=== PATIENT | male | born 1990 | race Caucasian/White ===

== ENCOUNTER 2020-07-23 14:09 | Observation (INO) | payer OTHER, SELFPAY ==
[2020-07-23] VITALS (13 sets, daily range): BP systolic 112–142; BP diastolic 65–104; PULSE 101–137; RESP 12–20; TEMP 36.1–36.3; O2SAT 94–99; BMI 25.2
--- NOTE | ~2020-07-23 | CT_ITS ---
EXAMINATION: CT abdomen pelvis w con DATE: 07/23/2020 16:03 INDICATION: Nausea and vomiting. Hematemesis. TECHNIQUE: Computed tomography (CT) of the abdomen and pelvis was performed with 100 cc Omnipaque 350 intravenous contrast. Automated exposure control and iterative reconstruction technique were employe d. Exam dose: 410.92 mGy-cm total exam DLP. COMPARISON: None. FINDINGS: The lung bases are clear of infiltrate or consolidation. Fat-containing right foramen of [place]chdalek hernia. Normal heart size. No pericardial or pleural effusion. Small sliding hiatal hernia. Small fat-containing umbilical hernia. Diffuse hepatic steatosis. No hepatic space-occupying mass lesion is evident. The gallbladder is pres ent. No gallbladder wall thickening or pericholecystic fluid or fat stranding. No bile duct or pancre atic duct dilatation. Normal splenic size. No pancreatic mass lesion, calcification or ductal dilatation. Normal morphology of the adrenal glands. Approximately 2.6 mm nonobstructing right renal calculus. 2.1 cm right renal cyst. 3 mm lower pole left renal cyst. No urinary tract calculus or hydroureteronephrosis. The urinary bladder is unremarkable. Minimal pros laboy calcification. Normal caliber of the abdominal aorta. No intraperitoneal or retroperitoneal or pelvic mass lesion or adenopathy or ascites. Normal appendix. No bowel obstruction, bowel wall thickening, pneumatosis or intraperitoneal free air . Old healed left rib fractures. IMPRESSION: Small sliding hiatal hernia Diffuse hepatic steatosis 2.6 mm nonobstructing right renal calculus Bilateral renal cysts Reviewed, dictated and finalized at [facility] Reviewed, dictated and finalized at [facility] AMBASS[facility]OR
[2020-07-23] MEDS: PANTOPRAZOLE SODIUM IV 40 MG VIAL IV PUSH (14:45)
[2020-07-23] MEDS: ONDANSETRON INJ 4 MG/2 ML VIAL IV PUSH (14:45)
--- NOTE | 2020-07-23 14:47 | ECG_ITS ---
Measurements Intervals [place] Rate: 125 P: 48 W[place]: 138 QRS: 37 QRSD: 110 T: 12 QT: 341 QTc: 492 Interpretive Statements SINUS TACHYCARDIA BORDERLINE ST-T WAVE ABNORMALITY- INF/LAT LEADS BASELINE WANDER- I, II, III, AVF ABNORMAL ECG Electronically Signed On 07-23-2020 17:04:59 APPLIANCE MECHANIC by Maik Prieto D.O.
--- NOTE | 2020-07-23 15:01 | ED.GENADULT ---
HPI - General Adult General Chief complaint: GI Bleed <EARLENE Thompson Last Filed: 07/23/20 18:08> Stated complaint: vomiting blood <EARLENE Thompson Last Filed: 07/23/20 18:08> Time Seen by Provider: 07/23/20 14:21 <EARLENE Thompson Last Filed: 07/23/20 18:08> Source: patient <EARLENE Thompson Last Filed: 07/23/20 18:08> Mode of arrival: ambulatory <EARLENE Thompson Last Filed: 07/23/20 18:08> Limitations: no limitations <EARLENE Thompson Last Filed: 07/23/20 18:08> History of Present Illness HPI narrative: Patient is a 30-year-old male who presents with hematemesis that began this morning patient notes history of chronic alcohol abuse denies any similar occurrence in the past patient notes chronic alcohol abuse drinking half a pint per day vodka chronically. Patient notes last night he had drank woke up feeling hung over this morning made an alcoholic drink and then attempted to go back to bed and then woke with emesis and vomiting. Patient also noted dark stools this morning. Patient denies GI bleed in the past. Patient notes history of possible reflux historically. Patient has not been seen by gastroenterology. Patient denies any other medications or illness or concerns at this time. Patient presents with emesis active in the ER with hematemesis. Patient has not taken anything for his symptoms patient is accompanied by exam <EARLENE Thompson Last Filed: 07/23/20 18:08> Related Data Home medications: Home Medications Medication Instructions Recorded Confirmed No Home Medications 07/23/20 07/23/20 <EARLENE Thompson Last Filed: 07/23/20 18:08> Allergies/adverse reactions: Allergies Allergy/AdvReac Type Severity Reaction Status Date / Time No Known Allergies Allergy Verified 07/23/20 14:21 <EARLENE Thompson Last Filed: 07/23/20 18:08> Review of Systems Review of Systems: All systems reviewed & are unremarkable except as noted in HPI and below <EARLENE Thompson Last Filed: 07/23/20 18:08> PMFSH Social History Social History: Social History (Updated 07/23/20 @ 15:05 by Catarino Ortiz PA-C) Smoking status: Never smoker Alcohol intake: current <Catarino Ortiz PA-C - Last Filed: 07/23/20 18:08> Exam Narrative: Exam Narrative: GENERAL: Ill-appearing, well-nourished, and in no acute distress. HEAD: Normocephalic, atraumatic. EYES: PERRLA and EOMI. ENT: Nares clear, no rhinorrhea or epistaxis. Mucous membranes moist. NECK: Supple. No adenopathy or masses. CHEST: Clear to auscultation. No respiratory distress. No wheezes rales or rhonchi HEART: Tachycardic rate and regular rhythm. No murmur heard. Normal peripheral pulses. ABDOMEN: Soft, tenderness in the upper quadrants no rebound or guarding, nondistended EXTREMITIES: Normal range of motion. No edema. SKIN: Warm, dry, no rash. NEURO: No focal deficits. Alert and oriented x3. Cranial nerves II through XII grossly intact PSYCH: Normal mood and affect. <Catarino Ortiz PA-C - Last Filed: 07/23/20 18:08> Course Course Emergency Course: Patient presented for hematemesis was given octreotide bolus and Protonix bolus and started on the drip no high risk changes in the blood work or imaging patient feeling much better at this time no longer having any emesis patient will be placed in hospital to the hospitalist service with GI consultation discussion was made with GI and hospitalist service with no further recommendations at this time given the patient's improvement <Catarino Ortiz PA-C - Last Filed: 07/23/20 18:08> ABORIGINAL LIAISON OFFICER/PA Physician Supervision For this patient encounter, I reviewed the ABORIGINAL LIAISON OFFICER or PA documentation, treatment plan, and medical decision making; and I had [id number] time with this patient. PAtient has alcohol abuse and presented with hematemesis. His hemoglobin had mild decreased
[2020-07-23 15:02] LABS: Basophils Percent Auto 0.6 % (0.2-1.2); Eosinophils Absolute Auto 0.1 K/mm3 (0-0.3); Eosinophils Percent Auto 2.1 % (0-4.4); Hematocrit 46.1 % (42.0-52.0); Immature Granulocyte Absolute 0.01 K/mm3 (0.00-0.031); Immature Granulocyte Percent A 0.1 % (0-0.5); Lymphocytes Absolute Auto 2.12 K/mm3 (0.9-3.2); Lymphocytes Percent Auto 31.7 % (18.3-44.2); Mean Corpuscular HGB Conc 34.7 g/dl (32-36); Mean Corpuscular Hemoglobin 32.3 pg (26-34); Mean Corpuscular Volume 92.9 fl (80-100); Mean Platelet Volume 9.7 fl (7.4-10.4); Monocytes Absolute Auto 0.6 K/mm3 (0.1-0.6); Monocytes Percent Auto 8.4 % (2.6-8.5); Neutrophils Absolute Auto 3.8 K/mm3 (1.3-6.7); Neutrophils Percent Auto 57.1 % (45.5-73.1); Platelet Count Result 332 k/mm3 (150-375); Red Blood Count 4.96 M/mm3 (4.6-6.20); Red Cell Distribution Width 13.5 % (11.5-14.5); White Blood Count 6.7 K/mm3 (4.5-10.0)
[2020-07-23 15:04] LABS: Add Urine Microscopic? YES; Appearance Urine Clear (Clear); Bilirubin Urine Negative (Negative); Blood Urine Negative (Negative); Color Urine Yellow (Yellow); Glucose Urine UA Negative (Negative); Ketones Urine 1+ mg/dL (Negative); Leukocyte Esterase Ur Negative LEU/UL (Negative); Mucus Urine Rare /lpf; Nitrate Urine Negative (Negative); Protein Urine 2+ mg/dL (Negative); RBC Urine 0-2 /hpf (0-2); Specific Grav Ur 1.016 (1.001-1.035); Urobilinogen Urine Negative mg/dL (<2.0); WBC Urine 0-3 /hpf
[2020-07-23 15:15] LABS: Ethanol 282 mg/dL (<10)
[2020-07-23] MEDS: THIAMINE HCL INJ 100 MG, FOLIC ACID INJ 1 MG, MULTIVITAMINS-12 INJ VIAL 1 5 ML, MULTIVI... 999 MG IV CONT (15:23)
[2020-07-23] MEDS: OCTREOTIDE ACETATE 50 MCG/ML VIAL IV PUSH (15:24)
[2020-07-23 15:34] LABS: Alanine Aminotransferase 119 U/L (4-50); Albumin Level 5.1 g/dL (3.5-5.1); Alkaline Phosphatase 46 U/L (38-126); Anion Gap 16 mmol/L (8-16); Aspartate Amino Transferase 141 U/L (17-59); Bilirubin,Total 0.6 mg/dL (0.2-1.3); Blood Urea Nitrogen 20 mg/dL (9-20); Calcium 9.1 mg/dL (8.4-10.2); Carbon Dioxide 27 mmol/L (22-30); Chloride 101 mmol/L (98-107); Estimated CRCL calculation 121 ml/min; Estimated Glomerular Filt Rate > 60; Glucose 120 mg/dL (75-110); Lipase 142 U/L (23-300); Potassium 3.7 mmol/L (3.4-5.0); Sodium 144 mmol/L (137-145)
[2020-07-23] MEDS: FAMOTIDINE 20 MG/2 ML VIAL IV PUSH (15:37)
[2020-07-23] MEDS: METOCLOPRAMIDE HCL INJ 10 MG/2 ML VIAL IV PUSH (15:37)
[2020-07-23] MEDS: LACTATED RINGERS 1,000 ML 999 ML IV CONT (15:37)
[2020-07-23 18:31] LABS: Hematocrit 40.9 % (42.0-52.0); Hemoglobin 14.1 g/dL (14.0-18.0)
[2020-07-23] MEDS: LACTATED RINGERS 1,000 ML 125 ML IV CONT (20:56)
[2020-07-23 21:03] LABS: Hematocrit 39.3 % (42.0-52.0); Hemoglobin 13.4 g/dL (14.0-18.0)
[2020-07-23] MEDS: LORazepam INJ (*CRX) 2 MG/ML VIAL 1 MG IV PUSH (21:54)
--- NOTE | 2020-07-23 22:58 | PM.IMHP ---
H&P: HPI History of Present Illness Date/Time: 07/23/20 22:58 Chief Complaint: Hematemesis Narrative: Jaiden Urena is a 30 year old male who drinks more than a pt of vodka a day. Patient has been drinking heavily since the COVID pandemic. The patient woke up around 4:00 a.m. this morning and had a stomach ache. The patient said that he had a large amount hematemesis this morning. He also had dark stools. He said he had several bouts of hematemesis this morning. Initially his H&H was normal. The patient has never seen a GI specialist. H&H is on 13.4 in 39.3. AST is 141 and ALT is 119. CT scan of the abdomen Was read as small see any hiatal hernia bilateral renal cyst. 2.6 mm nonobstructing right renal calculus. Diffuse hepatic steatosis. GI has been consulted. IV push, Zofran, IV Tylenol, thiamin, octreotide, Reglan, Pepcid and IV fluids. Patient was meant to observation date of service of 07/23/2020. Review of Systems Review of Systems: All systems reviewed & are unremarkable except as noted in HPI and below Constitutional: Constitutional: Reports as per HPI and Reports no additional constitutional complaints Eyes: Eyes: Reports as per HPI and Reports no additional eye complaints ENT: Reports system reviewed and no additional complaints, except as documented and Reports Normal hearing present Cardiovascular: Cardiovascular: Reports no additional cardiovascular complaints Respiratory: Respiratory: Reports no additional respiratory complaints and Reports no additional respiratory complaints Gastrointestinal: Gastrointestinal: Reports as per HPI and Reports no additional gastrointestinal complaints Musculoskeletal: Musculoskeletal: Reports no additional musculoskeletal complaints Integumentary/Breasts: Skin/Breast: Reports system reviewed and no additional complaints, except as docu and Reports as per HPI Neurologic: Reports system reviewed and no additional complaints, except as documented, Reports as per HPI and Reports Normal hearing present Psychiatric: Psychiatric: Reports no additional psychiatric complaints and Reports as per HPI Endocrine: Endocrine: Reports no additional endocrine complaints Hematologic/Lymphatic: Hematologic/Lymphatic: Reports no additional hematologic/lymphatic complaints Allergic/Immunologic: Allergic/Immunologic: Reports no additional allergic/immunologic complaints [facility] Past Medical History Medical History (Updated 07/23/20 @ 23:17 by Marizol Henry NP) Depression Generalized anxiety disorder History of suicide attempt 2 times as a teenager he cut his wrist 1 time and overdose on pills a 2nd time Surgical History Surgical History (Updated 07/23/20 @ 23:11 by Marizol Henry NP) No pertinent past surgical history Family History Family History (Updated 07/23/20 @ 23:13 by Marizol Henry NP) Father Diabetes mellitus Grandparent Diabetes mellitus Cerebrovascular accident Mother Alcoholism Social History Social History (Updated 07/23/20 @ 23:16 by Marizol Henry NP) Social History: The patient lives with his significant other he does not have a durable power of environmental attorney but we had to use his aunt to be the durable power environmental attorney if necessary. He is a full code. The patient drinks more than a pt of vodka a day. He used to use marijuana gummies but is not able to use a where he works. He works for [employer]. The patient has no children but lives with his significant other and she has an 8-year-old. Patient is a non smoker. Smoking status: Never smoker Second hand tobacco smoke exposure: Yes Alcohol intake: current Drinks per week: 35 Substance use: never Substance use type: does not use Other substance usage details: 3 drinks a day work day, all day on weekend-vodka and water Last use: 4am Spiritual care concerns: No Meds Home Medications and Allergies Home Medications Medication Instructions
[2020-07-23] MEDS: LORazepam INJ (*CRX) 2 MG/ML VIAL IV PUSH (23:10)
[2020-07-24] VITALS (14 sets, daily range): BP systolic 114–157; BP diastolic 70–99; PULSE 81–125; RESP 16–22; TEMP 36–36.3; O2SAT 97–100
--- NOTE | 2020-07-24 00:50 | ADMIMU ---
This patient, Jaiden Urena, was admitted to IMU status, and placed in IMU Room 200-01 07/23/202234. Patient/family oriented to hospital policies and general routines including ID bracelet, bed and alarms, visiting hours, pain management, procedures, bathroom and other care routines, personal items, smoking policy, room service/diet, and visiting hours. Information on how to activate the Rapid Response Team has been discussed. Patient/Family are encouraged to report perceived risks to care and to ask questions if they do not understand what they are told or what they should do.
[2020-07-24 03:39] LABS: Basophils Percent Auto 0.6 % (0.2-1.2); Eosinophils Absolute Auto 0.1 K/mm3 (0-0.3); Hematocrit 37.5 % (42.0-52.0); Hemoglobin 12.8 g/dL (14.0-18.0); Immature Granulocyte Absolute 0.02 K/mm3 (0.00-0.031); Immature Granulocyte Percent A 0.3 % (0-0.5); Lymphocytes Absolute Auto 1.14 K/mm3 (0.9-3.2); Lymphocytes Percent Auto 16.1 % (18.3-44.2); Mean Corpuscular HGB Conc 34.1 g/dl (32-36); Mean Corpuscular Hemoglobin 32.2 pg (26-34); Mean Corpuscular Volume 94.2 fl (80-100); Mean Platelet Volume 9.9 fl (7.4-10.4); Monocytes Absolute Auto 0.8 K/mm3 (0.1-0.6); Monocytes Percent Auto 10.8 % (2.6-8.5); Neutrophils Percent Auto 71.2 % (45.5-73.1); Platelet Count Result 262 k/mm3 (150-375); Red Blood Count 3.98 M/mm3 (4.6-6.20); Red Cell Distribution Width 13.6 % (11.5-14.5); White Blood Count 7.1 K/mm3 (4.5-10.0)
[2020-07-24 04:09] LABS: Alanine Aminotransferase 89 U/L (4-50); Albumin Level 4.1 g/dL (3.5-5.1); Alkaline Phosphatase 40 U/L (38-126); Anion Gap 5 mmol/L (8-16); Aspartate Amino Transferase 94 U/L (17-59); Blood Urea Nitrogen 13 mg/dL (9-20); Calcium 8.3 mg/dL (8.4-10.2); Carbon Dioxide 32 mmol/L (22-30); Chloride 101 mmol/L (98-107); Estimated CRCL calculation 121 ml/min; Estimated Glomerular Filt Rate > 60; Glucose 144 mg/dL (75-110); Lactate Dehydrogenase 472 U/L (313-618); Lipase 77 U/L (23-300); Magnesium 1.6 mg/dL (1.6-2.3); Sodium 138 mmol/L (137-145)
[2020-07-24] MEDS: LACTATED RINGERS 1,000 ML 125 ML IV CONT (04:57)
[2020-07-24 05:31] LABS: Thyroid Stimulating Hormone Reflex 0.353 uIU/mL (0.465-4.68)
--- NOTE | 2020-07-24 07:28 | WPDANESEPPF ---
Anes - Initial Pre Proc Eval Date/Time: 07/24/20 07:28 Surgeon: Lindsey Maciel MD Pre Op Diagnosis: GI bleed, etoh abuse Patient Data Age: 30 Gender: M Height: 1.78 m Weight: 80 kg Last Vital Signs Temp 36.3 C L 07/24/20 04:00 Pulse 92 07/24/20 05:53 Resp 16 07/24/20 04:00 BP 138/87 07/24/20 04:00 Pulse Ox 97 07/24/20 04:00 Allergies Allergy/AdvReac Type Severity Reaction Status Date / Time No Known Allergies Allergy Verified 07/23/20 14:21 Home Medications Medication Instructions Recorded Confirmed Type No Home Medications 07/23/20 07/23/20 History Laboratory Tests 07/23/20 07/23/20 07/23/20 14:46 14:46 14:46 WBC 6.7 K/mm3 K/mm3 (4.5-10.0) RBC 4.96 M/mm3 M/mm3 (4.6-6.20) Hgb 16.0 g/dL g/dL (14.0-18.0) Hct 46.1 % % (42.0-52.0) MCV 92.9 fl fl (80-100) MCH 32.3 pg pg (26-34) MCHC 34.7 g/dl g/dl (32-36) RDW 13.5 % % (11.5-14.5) Plt Count 332 k/mm3 k/mm3 (150-375) MPV 9.7 fl fl (7.4-10.4) Immature Gran % (Auto) 0.1 % % (0-0.5) Neut % (Auto) 57.1 % % (45.5-73.1) Lymph % (Auto) 31.7 % % (18.3-44.2) [place] % (Auto) 8.4 % % (2.6-8.5) Eos % (Auto) 2.1 % % (0-4.4) Baso % (Auto) 0.6 % % (0.2-1.2) Lymph # (Auto) 2.12 K/mm3 K/mm3 (0.9-3.2) [place] # (Auto) 0.6 K/mm3 K/mm3 (0.1-0.6) Eos # (Auto) 0.1 K/mm3 K/mm3 (0-0.3) Baso # (Auto) 0.0 K/mm3 K/mm3 (0.0-0.1) Abs Immat Gran (auto) 0.01 K/mm3 K/mm3 (0.00-0.031) Absolute Neuts (auto) 3.8 K/mm3 K/mm3 (1.3-6.7) Absolute Nucleated RBC 0.0 K/mm3 K/mm3 (0.0-0.012) Nucleated RBC % 0.0 % % (0.0-0.2) Sodium 144 mmol/L mmol/L (137-145) Potassium 3.7 mmol/L mmol/L (3.4-5.0) Chloride 101 mmol/L mmol/L (98-107) Carbon Dioxide 27 mmol/L mmol/L (22-30) Anion Gap 16 mmol/L mmol/L (8-16) BUN 20 mg/dL mg/dL (9-20) Creatinine 0.80 mg/dL mg/dL (0.7-1.3) Estim Creat Clear Calc 121 ml/min ml/min Estimated GFR > 60 (59 - ) Glucose 120 mg/dL H mg/dL (75-110) Calcium 9.1 mg/dL mg/dL (8.4-10.2) Magnesium Total Bilirubin 0.6 mg/dL mg/dL (0.2-1.3) AST 141 U/L H U/L (17-59) ALT 119 U/L H U/L (4-50) Alkaline Phosphatase 46 U/L U/L (38-126) Lactate Dehydrogenase Total Protein 9.0 g/dL H g/dL (6.3-8.2) Albumin 5.1 g/dL g/dL (3.5-5.1) Lipase 142 U/L U/L (23-300) TSH (Reflex) Free T4 Urine Color Yellow (Yellow) Urine Appearance Clear (Clear) Urine pH 6.0 (5.0-9.0) Ur Specific [place] 1.016 (1.001-1.035) Urine Protein 2+ mg/dL H mg/dL (Negative) Urine Glucose (UA) Negative mg/dL mg/dL (Negative) Urine Ketones 1+ mg/dL H mg/dL (Negative) Ur Blood (Man) Negative (Negative) Urine Nitrate Negative (Negative) Urine Bilirubin Negative (Negative) Urine Urobilinogen Negative mg/dL mg/dL (<2.0) Leukocyte Esterase Rfl Negative RON/UL RON/UL (Negative) Urine RBC 0-2 /hpf /hpf (0-2) Urine WBC 0-3 /hpf /hpf Urine Mucus Rare /lpf /lpf Ethyl Alcohol Blood Type Antibody Screen 07/23/20 07/23/20 07/23/20 14:46 14:47 18:24 WBC RBC Hgb 14.1 g/dL g/dL (14.0-18.0) Hct 40.9 % L % (42.0-52.0) MCV MCH MCHC RDW Plt Count MPV Immature Gran % (Auto) Neut % (Auto) Lymph % (Auto) [place] %
[2020-07-24 08:53] LABS: Hematocrit 35.9 % (42.0-52.0); Hemoglobin 12.2 g/dL (14.0-18.0)
--- NOTE | 2020-07-24 08:57 | WPDGICN ---
Assessment and Plan Assessment and plan (1) Hematemesis: Code(s): K92.0 - Hematemesis Status: Acute Assessment and Plan: will proceed with urgent EGD, assess if ulcers, esophagitis, varices, etc on iv protonix and octreotide (2) Acute blood loss anemia: Code(s): D62 - Acute posthemorrhagic anemia Status: Acute Assessment and Plan: trend h/h and more signs of bleeding iv protonix (3) Alcoholic liver disease: Code(s): K70.9 - Alcoholic liver disease, unspecified Status: Acute Assessment and Plan: he needs to quit drinking supportive care, thiamine, mvi ciwa protocol (4) Elevated liver enzymes: Code(s): R74.8 - Abnormal levels of other serum enzymes Status: Acute Assessment and Plan: from alcohol use, denies illicits will check for hepatitis (5) Alcohol abuse: Code(s): F10.10 - Alcohol abuse, uncomplicated Status: Acute Assessment and Plan: risk for withdrawal, monitor and treat (6) Generalized anxiety disorder: Code(s): F41.1 - Generalized anxiety disorder Status: Chronic GI Consult Note Consult date/time: 07/24/20 08:57 Reason for consult: gib, hematemesis HPI: Jaiden Urena is a 30 year old male who drinks more than a pint of vodka a day for years but even more than usual since the COVID pandemic. Last few days with nausea and dry heaves but yesterday woke up in morning with also epigastric pain and had large amount hematemesis with dark stools. Hb on admission was 16 and trending down with most recent one 12.2. He was started on protonix, octreotide, fluids and admitted to floor. Never had scopes. AST 141 and ALT 119 (he says that about a year ago his doctor told him that had mild elevated liver enzymes). CT scan of the abdomen reviewed, small hiatal hernia, diffuse hepatic steatosis. Review of Systems Constitutional: Constitutional: Denies chills Eyes: Eyes: Reports no additional eye complaints ENT: Reports Normal hearing present Cardiovascular: Cardiovascular: Denies chest pain Respiratory: Respiratory: Denies dyspnea Gastrointestinal: Gastrointestinal: Reports abdominal pain, Reports melena, Reports nausea, Reports vomiting and Reports hematemesis Genitourinary: Genitourinary: Denies dysuria Musculoskeletal: Musculoskeletal: Denies neck pain Integumentary/Breasts: Skin/Breast: Denies dry skin Neurologic: Reports system reviewed and no additional complaints, except as documented Psychiatric: Psychiatric: Reports anxiety Endocrine: Endocrine: Denies cold intolerance PMFSH Past Medical History Medical History (Updated 07/24/20 @ 09:02 by Lake Bauer MD) Acute blood loss anemia Alcohol abuse Alcoholic liver disease Depression Elevated liver enzymes Generalized anxiety disorder Hematemesis History of suicide attempt 2 times as a teenager he cut his wrist 1 time and overdose on pills a 2nd time Surgical History Surgical History (Updated 07/23/20 @ 23:11 by Marizol Henry NP) No pertinent past surgical history Family History Family History (Updated 07/23/20 @ 23:13 by Marizol Henry NP) Father Diabetes mellitus Grandparent Diabetes mellitus Cerebrovascular accident Mother Alcoholism Social History Social History (Updated 07/23/20 @ 23:16 by Marizol Henry NP) Social History: The patient lives with his significant other he does not have a durable power of [place] attorney but we had to use his aunt to be the durable power [place] attorney if necessary. He is a full code. The patient drinks more than a pt of vodka a day. He used to use marijuana gummies but is not able to use a where he works. He works for [employer]. The patient has no children but lives with his significant other and she has an 8-year-old. Patient is a non smoker. Smoking status: Never smoker Second hand tobacco smoke exposure: Yes Alcohol intake: cur
[2020-07-24] MEDS: LACTATED RINGERS 1,000 ML 150 ML IV CONT (09:08)
[2020-07-24] MEDS: FOLIC ACID 1 MG/0.2 ML INJ IV PUSH (10:41)
[2020-07-24] MEDS: THIAMINE HCL 200 MG/2 ML VIAL 100 MG IV PUSH (10:41)
[2020-07-24] MEDS: SUCRALFATE 1 GM TABLET PO (10:41)
--- NOTE | 2020-07-24 10:42 | PM.DS ---
DS: Admitting Diagnosis Admitting Diagnosis Admitting Diagnosis: hematemesis DS: Discharge Diagnosis Discharge Diagnosis (1) Elevated liver enzymes: Code(s): R74.8 - Abnormal levels of other serum enzymes Status: Acute Assessment and Plan: secondary to alcohol abuse counseling (2) Alcoholic liver disease: Code(s): K70.9 - Alcoholic liver disease, unspecified Status: Acute Assessment and Plan: avoid alcohol counseling (3) Acute blood loss anemia: Code(s): D62 - Acute posthemorrhagic anemia Status: Acute Assessment and Plan: acute blood loss anemia secondary to GI bleed secondary to esophagitis gastritis and esophageal ulcer status post endoscopy and biopsy follow-up with GI as outpatient plan to discharge patient on Protonix and Carafate follow-up with GI in 2 weeks (4) Alcohol abuse: Code(s): F10.10 - Alcohol abuse, uncomplicated Status: Acute Assessment and Plan: counseling DS: Summary Hospital Course Hospital Course: patient was admitted to the hospital with dry heaves hematemesis was found to esophagitis gastritis esophageal ulcer on endoscopy GI following biopsy was taken follow-up with GI as outpatient patient also has history of chronic alcoholism counseling was given follow-up with PCP Time Spent with Patient Time attestation: Total time spent providing and/or coordinating discharge services: DS: Data Data Completed and Pending Pending studies at discharge: Pending at discharge 07/24/20 09:19 Surgical [PTH] Routine Labs on day of discharge: Labs from last 24 hours 07/24/20 07/24/20 07/24/20 08:33 03:08 03:08 WBC RBC Hgb 12.2 L Hct 35.9 L MCV MCH MCHC RDW Plt Count MPV Immature Gran % (Auto) Neut % (Auto) Lymph % (Auto) [place] % (Auto) Eos % (Auto) Baso % (Auto) Lymph # (Auto) [place] # (Auto) Eos # (Auto) Baso # (Auto) Abs Immat Gran (auto) Absolute Neuts (auto) Absolute Nucleated RBC Nucleated RBC % Sodium Potassium Chloride Carbon Dioxide Anion Gap BUN Creatinine Estim Creat Clear Calc Estimated GFR Glucose Calcium Magnesium Total Bilirubin AST ALT Alkaline Phosphatase Lactate Dehydrogenase Total Protein Albumin Lipase TSH (Reflex) 0.353 L Free T4 0.60 L Urine Color Urine Appearance Urine pH Ur Specific [place] Urine Protein Urine Glucose (UA) Urine Ketones Ur Blood (Man) Urine Nitrate Urine Bilirubin Urine Urobilinogen Leukocyte Esterase Rfl Urine RBC Urine WBC Urine Mucus Ethyl Alcohol Blood Type Antibody Screen 07/24/20 07/24/20 07/23/20 03:08 03:08 20:50 WBC 7.1 RBC 3.98 L Hgb 12.8 L 13.4 L Hct 37.5 L 39.3 L MCV 94.2 MCH 32.2 MCHC 34.1 RDW 13.6 Plt Count 262 MPV 9.9 Immature Gran % (Auto) 0.3 Neut % (Auto) 71.2 Lymph % (Auto) 16.1 L [place] % (Auto) 10.8 H Eos % (Auto) 1.0 Baso % (Auto) 0.6 Lymph # (Auto) 1.14 [place] # (Auto) 0.8 H Eos # (Auto) 0.1 Baso # (Auto) 0.0 Abs Immat Gran (auto) 0.02 Absolute Neuts (auto) 5.0 Absolute Nucleated RBC 0.0 Nucleated RBC % 0.0 Sodium 138 Potassium 4.0 Chloride 101 Carbon Dioxide 32 H Anion Gap 5 L BUN 13 D Creatinine 0.80 Estim Creat Clear Calc 121 Estimated GFR > 60 Glucose 144 H Calcium 8.3 L Magnesium 1.6 Total Bilirubin 1.0 AST 94 H ALT 89 H Alkaline Phosphatase 40 Lactate Dehydrogenase 472 Total Protein 7.0 Albumin 4.1 Lipase 77 TSH (Reflex) Free T4 Urine Color Urine Appearance Urine pH Ur Specific [place] Urine Protein Urine Glucose (UA) Urine Ketones Ur Blood (Man) Urine Nitrate Urine Bilirubin Urine Urobilinogen Leukocyte Esterase Rfl [place]
== END 2020-07-24 12:50 | disposition home or self-care (01) ==
LOC: ANHED 18:16 → ANHIMU 07-24 00:55
PROVIDERS: Emergency Medicine Emergency Medical Services; Internal Medicine Gastroenterology; Nurse Practitioner; Admitting Provider Family Medicine; Emergency Provider General Practice; Visit Provider Internal Medicine
PROC: 0DJ08ZZ Inspection of Upper Intestinal Tract, Via Natural or Artificial Opening Endoscopic (ICD-10-PCS; CPT 43235; principal; 2020-07-24 09:00)
DX: K29.00 Acute gastritis without bleeding (principal); K22.10 Ulcer of esophagus without bleeding; K21.00 Gastro-esophageal reflux disease with esophagitis, without bleeding; K44.9 Diaphragmatic hernia without obstruction or gangrene; K70.9 Alcoholic liver disease, unspecified; D62 Acute posthemorrhagic anemia; F10.10 Alcohol abuse, uncomplicated; F32.9 Major depressive disorder, single episode, unspecified; F41.1 Generalized anxiety disorder; Y90.8 Blood alcohol level of 240 mg/100 ml or more; R74.8 Abnormal levels of other serum enzymes
CPT/HCPCS: 43239; 36415; 74177; 80053; 80307; 81001; 83615; 83690; 83735; 84439; 84443; 85014; 85018; 85025; 86850; 86900; 86901; 87081; 88305; 88342; 93005; 96361; 96365; 96366; 96367; 96368; 96375; 96376; 99285; A9270; C9113; G0378; J0131; J2060; J2250; J2354; J2405; J2704; J2765; J3411; J3475; J7060; J7120; Q9967

== ENCOUNTER 2020-09-09 16:34 | Emergency (ER) | payer OTHER, SELFPAY ==
[2020-09-09 16:36] VITALS: BP 171/102; PULSE 97; RESP 20; TEMP 36.6; O2SAT 100
--- NOTE | 2020-09-09 18:57 | ED.GENADULT ---
HPI - General Adult General Chief complaint: Animal Bite Stated complaint: bat bite thumb last week Time Seen by Provider: 09/09/20 18:32 Source: patient Mode of arrival: ambulatory Limitations: no limitations History of Present Illness HPI narrative: Patient a 30-year-old male who presents with wound to the left thumb where he had picked up a bat and was bit a week ago patient presents requesting rabies vaccine immunoglobulin per recommendation of his primary care patient denies any pain denies any bleeding from the wound or any other complaints. Patient notes his tetanus is not up-to-date Related Data Home Medications Medication Instructions Recorded Confirmed sucralfate 09/09/20 Allergies Allergy/AdvReac Type Severity Reaction Status Date / Time No Known Allergies Allergy Verified 09/09/20 18:28 Review of Systems Review of Systems: All systems reviewed & are unremarkable except as noted in HPI and below PMFSH Past Medical History Medical History Acute blood loss anemia Alcohol abuse Alcoholic liver disease Depression Elevated liver enzymes Erosive esophagitis Generalized anxiety disorder Hematemesis History of suicide attempt 2 times as a teenager he cut his wrist 1 time and overdose on pills a 2nd time Surgical History Surgical History No pertinent past surgical history Family History Family History Father Diabetes mellitus Grandparent Diabetes mellitus Cerebrovascular accident Mother Alcoholism Diabetes mellitus Social History Social History Social History: The patient lives with his significant other he does not have a durable power of patent attorney but we had to use his aunt to be the durable power patent attorney if necessary. He is a full code. The patient drinks more than a pt of vodka a day. He used to use marijuana gummies but is not able to use a where he works. He works for [employer]. The patient has no children but lives with his significant other and she has an 8-year-old. Patient is a non smoker. Smoking status: Never smoker Second hand tobacco smoke exposure: Yes Alcohol intake: current Drinks per week: 35 Substance use: never Substance use type: does not use Other substance usage details: 3 drinks a day work day, all day on weekend-vodka and water Last use: 4am Spiritual care concerns: No Exam Narrative: Exam Narrative: GENERAL: Well-appearing, well-nourished, and in no acute distress. HEAD: Normocephalic, atraumatic. EYES: PERRLA and EOMI. ENT: Nares clear, no rhinorrhea or epistaxis. Mucous membranes moist. EXTREMITIES: Normal range of motion. No edema. SKIN: Warm, dry, no rash. Small abrasion to the left thumb with no bleeding or other redness or swelling NEURO: No focal deficits. Alert and oriented x3. PSYCH: Normal mood and affect. Course Course Emergency Course: Discussion was made with the infectious disease nurse Alfreda Vo who will follow the patient patient will have to return Saturday to get his vaccine which will be day 1 and then she will coordinate the rest of the vaccine patient has been given this plan and agrees with it Vital Signs Vital signs: Vital Signs Temperature 97.8 F 09/09/20 16:36 Pulse Rate 97 09/09/20 16:36 Respiratory Rate 20 09/09/20 16:36 Blood Pressure 171/102 H 09/09/20 16:36 Pulse Oximetry 100 09/09/20 16:36 Temperature 97.8 F 09/09/20 16:36 Pulse Rate 97 09/09/20 16:36 Respiratory Rate 20 09/09/20 16:36 Blood Pressure 171/102 H 09/09/20 16:36 Pulse Oximetry 100 09/09/20 16:36 Medical Decision Making MDM Narrative Medical decision making narrative: Patient was evaluated with his series began today and will follow with janak
[2020-09-09] MEDS: TETANUS,DIPHTHERIA,AC PERTUSSIS ADULT (0.5 ML) BOOSTRIX IM (19:15)
[2020-09-09] MEDS: RABIES IMMUNE GLOBULIN/PF 1,500 UNITS/5 ML VIAL 1500 UNITS IM (19:50)
[2020-09-09] MEDS: RABIES IMMUNE GLOBULIN/PF 300 UNITS/ML VIAL 160 UNITS IM (19:51)
[2020-09-09] MEDS: RABIES VACCINE (RABAVERT) 2.5 UNITS VIAL IM (19:51)
[2020-09-09 20:05] VITALS: BP 149/108; PULSE 83; RESP 18; O2SAT 100
--- NOTE | 2020-09-09 20:06 | PC.NURSE ---
pt verbalized understanding and importance of returning saturday, day Saturday, and day Saturday with cathleen.
== END 2020-09-09 20:06 | disposition home or self-care (01) ==
PROVIDERS: Emergency Provider Emergency Medicine; PCP Family Medicine
DX: S61.052A Open bite of left thumb without damage to nail, initial encounter (principal); K70.9 Alcoholic liver disease, unspecified; F10.10 Alcohol abuse, uncomplicated; Z77.22 Contact with and (suspected) exposure to environmental tobacco smoke (acute) (chronic); Z23 Encounter for immunization; W55.81XA Bitten by other mammals, initial encounter
CPT/HCPCS: 90375; 90471; 90472; 90675; 90715; 96372; 99283

== ENCOUNTER 2020-09-12 10:31 | Emergency (ER) | payer OTHER, SELFPAY ==
[2020-09-12 10:39] VITALS: BP 149/97; PULSE 97; RESP 18; TEMP 36.7; O2SAT 98
[2020-09-12] MEDS: RABIES VACCINE (RABAVERT) 2.5 UNITS VIAL IM (12:57)
[2020-09-12] MEDS: HYDROcodone/acetaminophen (*CRX) 5-325 MG TABLET 1 TAB PO (12:59)
--- NOTE | 2020-09-12 13:33 | ED.GENADULT ---
HPI - General Adult General Chief complaint: Unspecified Stated complaint: to get 2nd set of rabies vaccine Time Seen by Provider: 09/12/20 11:52 History of Present Illness HPI narrative: Patient is a 30-year-old male who presents to the ER for rabies vaccination. He had his first vaccination on 09/09/2020 after being bit by a bat. No complications since then. Related Data Home Medications Medication Instructions Recorded Confirmed sucralfate 09/09/20 Allergies Allergy/AdvReac Type Severity Reaction Status Date / Time No Known Allergies Allergy Verified 09/09/20 18:28 Review of Systems Constitutional: Constitutional: Denies chills and Denies fever(s) Gastrointestinal: Gastrointestinal: Denies abdominal pain, Denies diarrhea, Denies nausea and Denies vomiting PMFSH Past Medical History Medical History Acute blood loss anemia Alcohol abuse Alcoholic liver disease Depression Elevated liver enzymes Erosive esophagitis Generalized anxiety disorder Hematemesis History of suicide attempt 2 times as a teenager he cut his wrist 1 time and overdose on pills a 2nd time Surgical History Surgical History No pertinent past surgical history Family History Family History Father Diabetes mellitus Grandparent Diabetes mellitus Cerebrovascular accident Mother Alcoholism Diabetes mellitus Social History Social History Social History: The patient lives with his significant other he does not have a durable power of claim attorney but we had to use his aunt to be the durable power claim attorney if necessary. He is a full code. The patient drinks more than a pt of vodka a day. He used to use marijuana gummies but is not able to use a where he works. He works for [employer]. The patient has no children but lives with his significant other and she has an 8-year-old. Patient is a non smoker. Smoking status: Never smoker Second hand tobacco smoke exposure: Yes Alcohol intake: current Drinks per week: 35 Substance use: never Substance use type: does not use Other substance usage details: 3 drinks a day work day, all day on weekend-vodka and water Last use: 4am Spiritual care concerns: No Exam Narrative: Exam Narrative: GENERAL: Well-appearing, well-nourished, and in no acute distress. HEAD: Normocephalic, atraumatic. CHEST: Clear to auscultation. No respiratory distress. EXTREMITIES: Normal range of motion. No edema. No infection where patient was bit. NEURO: Alert and oriented x3. PSYCH: Normal mood and affect. Course Course Emergency Course: Patient received a second shot. An outpatient prescription was written from the receive his next immunizations on 09/16 and 09/23. Vital Signs Vital signs: Vital Signs Temperature 98.1 F 09/12/20 10:39 Pulse Rate 97 09/12/20 10:39 Respiratory Rate 18 09/12/20 10:39 Blood Pressure 149/97 H 09/12/20 10:39 Pulse Oximetry 98 09/12/20 10:39 Temperature 98.1 F 09/12/20 10:39 Pulse Rate 97 09/12/20 10:39 Respiratory Rate 18 09/12/20 10:39 Blood Pressure 149/97 H 09/12/20 10:39 Pulse Oximetry 98 09/12/20 10:39 Medical Decision Making Vital Signs Vital Signs: Vital Signs Temperature 98.1 F 09/12/20 10:39 Pulse Rate 97 09/12/20 10:39 Respiratory Rate 18 09/12/20 10:39 Blood Pressure 149/97 H 09/12/20 10:39 Pulse Oximetry 98 09/12/20 10:39 Temperature 98.1 F 09/12/20 10:39 Pulse Rate 97 09/12/20 10:39 Respiratory Rate 18 09/12/20 10:39 Blood Pressure 149/97 H 09/12/20 10:39 Pulse Oximetry 98 09/12/20 10:39 Discharge Plan Discharge Clinical Impression: Rabies exposure Patient Disposition: Home, Self-Care Condition: Stable
[2020-09-12 13:41] VITALS: PULSE 89; RESP 18; O2SAT 99
== END 2020-09-12 13:42 | disposition home or self-care (01) ==
PROVIDERS: Emergency Provider Emergency Medicine; PCP Family Medicine
DX: Z20.3 Contact with and (suspected) exposure to rabies (principal); Z23 Encounter for immunization; F41.9 Anxiety disorder, unspecified
CPT/HCPCS: 90471; 90675; 99283; A9270

== ENCOUNTER 2020-09-16 13:29 | Emergency (ER) | payer OTHER, SELFPAY ==
[2020-09-16 13:38] VITALS: BP 148/99; PULSE 96; RESP 18; TEMP 36.7; O2SAT 99
[2020-09-16] MEDS: RABIES VACCINE (RABAVERT) 2.5 UNITS VIAL IM (14:17)
== END 2020-09-16 14:27 | disposition home or self-care (01) ==
PROVIDERS: PCP Family Medicine
DX: Z23 Encounter for immunization (principal)
CPT/HCPCS: 90471; 90675; 96372

== ENCOUNTER 2020-09-23 13:30 | Outpatient (RCR) | payer OTHER, SELFPAY | END 2020-12-15 23:59 | disposition home or self-care (01) | LOC: ANHLAB 13:30 | PROVIDERS: PCP Family Medicine; Visit Provider Emergency Medicine | DX: Z20.3 Contact with and (suspected) exposure to rabies (principal) | CPT/HCPCS: 99199; 90471; 90675 ==

== ENCOUNTER → 2020-10-15 00:21 | Outpatient (CLI) | payer OTHER, SELFPAY ==
[2020-10-16 14:52] LABS: SARS-CoV-2 RNA PCR Negative
== END ==
PROVIDERS: PCP Family Medicine; Visit Provider Internal Medicine Gastroenterology
DX: Z01.812 Encounter for preprocedural laboratory examination (principal); Z20.822 Contact with and (suspected) exposure to COVID-19
CPT/HCPCS: C9803; U0003; U0005

== ENCOUNTER 2020-10-18 02:16 | Day surgery (SDC) | payer OTHER, SELFPAY ==
[2020-10-12 12:08] VITALS: BMI 25.9
[2020-10-18 06:49] VITALS: BP 149/103; PULSE 100; RESP 18; TEMP 36.4; O2SAT 98; BMI 27.1
--- NOTE | 2020-10-18 06:54 | WPDANESEPPF ---
Anes - Initial Pre Proc Eval Procedure: Operation Date: 10/18/20 08:00 Proposed Procedures p Esophagogastroduodenoscopy - [place] Bauer MD Date/Time: 10/18/20 06:54 Surgeon: Lake Bauer MD Pre Op Diagnosis: Esophageal Ulcer Patient Data Age: 30 Gender: M Height: 1.78 m Weight: 85.7 kg Last Vital Signs Temp 36.4 C L 10/18/20 06:49 Pulse 100 10/18/20 06:49 Resp 18 10/18/20 06:49 BP 149/103 H 10/18/20 06:49 Pulse Ox 98 10/18/20 06:49 Allergies Allergy/AdvReac Type Severity Reaction Status Date / Time No Known Allergies Allergy Verified 10/18/20 06:48 Home Medications Medication Instructions Recorded Confirmed Type folic acid 1 mg PO DAILY #30 tablet 07/24/20 10/12/20 Rx losartan 25 mg tablet 25 mg PO DAILY #30 tablet 08/01/20 10/12/20 Rx cholecalciferol (vitamin D3) 1,250 1,250 mcg PO WEEKLY #14 cap 08/15/20 10/12/20 Rx mcg (50,000 unit) capsule pantoprazole 40 mg tablet,delayed 40 mg PO BID #60 tablet 08/17/20 10/12/20 Rx release buspirone 5 mg tablet See Rx Instructions .ROUTE 10/10/20 10/12/20 Rx .COMPLEX #270 tablet thiamine mononitrate (vit B1) 100 mg PO DAILY 10/12/20 10/12/20 History Patient hx anesthesia problems: none Family hx anesthesia problems: none PMFSH Past Medical History Medical History Acute blood loss anemia Alcohol abuse Alcoholic liver disease Depression Elevated liver enzymes Erosive esophagitis Generalized anxiety disorder Hematemesis History of suicide attempt 2 times as a teenager he cut his wrist 1 time and overdose on pills a 2nd time Surgical History Surgical History No pertinent past surgical history Family History Family History Father Diabetes mellitus Grandparent Diabetes mellitus Cerebrovascular accident Mother Alcoholism Diabetes mellitus Social History Social History Social History: The patient lives with his significant other he does not have a durable power of attorney general but we had to use his aunt to be the durable power attorney general if necessary. He is a full code. The patient drinks more than a pt of vodka a day. He used to use marijuana gummies but is not able to use a where he works. He works for [employer]. The patient has no children but lives with his significant other and she has an 8-year-old. Patient is a non smoker. Smoking status: Never smoker Second hand tobacco smoke exposure: Yes Alcohol intake: current Drinks per week: 35 Substance use: never Substance use type: does not use Other substance usage details: 3 drinks a day work day, all day on weekend-vodka and water Last use: 4am Living arrangements: with family Gender identity (if verbalized by the patient): Male Spiritual care concerns: No Anes - Eval Final PreProcedure Day of Procedure 10/18/20 06:54 Patient weight: overweight Heart: regular rate and rhythm Lungs: clear to auscultation and normal air movement Airway: Mallampati scale class 1 Neurological: alert and oriented Last oral intake: >/= 8 hours ASA classification: III Emergent: no Anesthetic plan: proceed Anesthesia type and monitoring: general GIVS and standard monitoring Informed Consent: The patient's anesthetic plan and its attendant risks and benefits were discussed with the patient/family/POA. Questions were solicited and answers provided to the satisfaction of the patient/family/POA.
[2020-10-18] MEDS: LACTATED RINGERS 1,000 ML 150 ML IV CONT (06:55)
--- NOTE | 2020-10-18 08:02 | PM.HPGS ---
History of Present Illness History of Present Illness Consent: Risks, benefits, and alternatives have been discussed and questions answered. Patient agrees to proceed with procedure. Chief complaint: Esophageal Ulcer Narrative: Jaiden Urena is a 30 year old male with erosive esophagitis 07/2020 when he was drinking heavily, now on ppi Review of Systems Constitutional: Constitutional: Denies headache(s) and Denies weakness Eyes: Eyes: Denies blurry vision ENT: Reports Normal hearing present, Denies headache(s) and Denies neck pain Cardiovascular: Cardiovascular: Denies chest pain and Denies dyspnea Respiratory: Respiratory: Denies dyspnea Gastrointestinal: Gastrointestinal: Reports no additional gastrointestinal complaints Genitourinary: Genitourinary: Denies dysuria Musculoskeletal: Musculoskeletal: Denies neck pain Integumentary/Breasts: Skin/Breast: Denies dry skin Neurologic: Reports Normal hearing present, Denies headache(s) and Denies weakness Psychiatric: Psychiatric: Denies anxiety Endocrine: Endocrine: Denies change in body appearance Hematologic/Lymphatic: Hematologic/Lymphatic: Denies easy bleeding Allergic/Immunologic: Allergic/Immunologic: Denies urticaria PMFSH Past Medical History Medical History Acute blood loss anemia Alcohol abuse Alcoholic liver disease Depression Elevated liver enzymes Erosive esophagitis Generalized anxiety disorder Hematemesis History of suicide attempt 2 times as a teenager he cut his wrist 1 time and overdose on pills a 2nd time Surgical History Surgical History No pertinent past surgical history Family History Family History Father Diabetes mellitus Grandparent Diabetes mellitus Cerebrovascular accident Mother Alcoholism Diabetes mellitus Social History Social History Social History: The patient lives with his significant other he does not have a durable power of securities attorney but we had to use his aunt to be the durable power securities attorney if necessary. He is a full code. The patient drinks more than a pt of vodka a day. He used to use marijuana gummies but is not able to use a where he works. He works for [employer]. The patient has no children but lives with his significant other and she has an 8-year-old. Patient is a non smoker. Smoking status: Never smoker Second hand tobacco smoke exposure: Yes Alcohol intake: current Drinks per week: 35 Substance use: never Substance use type: does not use Other substance usage details: 3 drinks a day work day, all day on weekend-vodka and water Last use: 4am Living arrangements: with family Gender identity (if verbalized by the patient): Male Spiritual care concerns: No Meds Home Medications and Allergies Home Medications Medication Instructions Recorded Confirmed Type folic acid 1 mg PO DAILY #30 tablet 07/24/20 10/12/20 Rx losartan 25 mg tablet 25 mg PO DAILY #30 tablet 08/01/20 10/12/20 Rx cholecalciferol (vitamin D3) 1,250 1,250 mcg PO WEEKLY #14 cap 08/15/20 10/12/20 Rx mcg (50,000 unit) capsule pantoprazole 40 mg tablet,delayed 40 mg PO BID #60 tablet 08/17/20 10/12/20 Rx release buspirone 5 mg tablet See Rx Instructions .ROUTE 10/10/20 10/12/20 Rx .COMPLEX #270 tablet thiamine mononitrate (vit B1) 100 mg PO DAILY 10/12/20 10/12/20 History Allergies Allergy/AdvReac Type Severity Reaction Status Date / Time No Known Allergies Allergy Verified 10/18/20 06:48 Vital Signs Vital Signs - 24 hr 10/18/20 06:49 Temperature 97.5 F L Pulse Rate 100 Respiratory Rate 18 Blood Pressure 149/103 H Pulse Oximetry 98 Exam Const: General: comfortable and no acute distress HENMT: General nose ex
[2020-10-18 08:10] VITALS: BP 130/92; PULSE 95; RESP 21; O2SAT 95
[2020-10-18 08:20] VITALS: BP 139/93; PULSE 96; RESP 20; O2SAT 96
[2020-10-18 08:30] VITALS: BP 132/100; PULSE 86; RESP 22; O2SAT 99
== END 2020-10-18 08:40 | disposition home or self-care (01) ==
PROVIDERS: PCP Family Medicine; Visit Provider Internal Medicine Gastroenterology
PROC: 0DJ08ZZ Inspection of Upper Intestinal Tract, Via Natural or Artificial Opening Endoscopic (ICD-10-PCS; CPT 43235; principal; 2020-10-18 08:00)
DX: Z09 Encounter for follow-up examination after completed treatment for conditions other than malignant neoplasm (principal); K29.50 Unspecified chronic gastritis without bleeding; K44.9 Diaphragmatic hernia without obstruction or gangrene; Z87.19 Personal history of other diseases of the digestive system; F10.10 Alcohol abuse, uncomplicated; K70.9 Alcoholic liver disease, unspecified; F41.1 Generalized anxiety disorder; F32.9 Major depressive disorder, single episode, unspecified
CPT/HCPCS: 43239; 88305; C9803; J2704; J7120; U0003; U0005

== ENCOUNTER 2021-01-05 00:20 | Observation (INO) | payer OTHER, SELFPAY ==
[2021-01-05] VITALS (10 sets, daily range): BP systolic 132–145; BP diastolic 74–117; PULSE 77–117; RESP 13–20; TEMP 35.8–37; O2SAT 96–100; BMI 27.1
--- NOTE | ~2021-01-05 | CT_ITS ---
EXAMINATION: CT abdomen pelvis w con DATE: 01/05/2021 02:05 INDICATION: Epigastric pain TECHNIQUE: Computed tomography (CT) of the abdomen and pelvis was performed with 100 mL Omnipaque-350 intravenous contrast. Automated exposure control and iterative reconstruction technique were employe d. The dose-length product was 645.32 mGy-cm. COMPARISON: 07/23/2020 FINDINGS: Lung bases are clear. Heart size is normal. No pericardial or pleural effusion. Small sliding-type hi atal hernia. Diffuse hepatic steatosis. Gallbladder, spleen, pancreas and bilateral adrenal glands ar e normal. Bilateral renal cysts, the larger on the right measuring 2.1 cm. 3 mm nonobstructing right renal stone. Bowels including the appendix are normal. Very small fat-containing umbilical hernia. Bl adder is normal. No free intraperitoneal gas or fluid. No pathologically enlarged abdominal or pelvic lymphadenopathy. IMPRESSION: 1. No acute intra-abdominal/pelvic process. 2. Small sliding-type hiatal hernia. 3. 3 mm nonobstructing right renal stone. 4. Diffuse hepatic steatosis. Reviewed, dictated and finalized at location A.
--- NOTE | 2021-01-05 00:39 | ED.ALCOHOL ---
HPI - Alcohol General Chief Complaint: Alcohol Stated Complaint: ETOH-PCP SENT HERE Time Seen by Provider: 01/05/21 00:29 History of Present Illness HPI narrative: 30 yo male w/ h/o alcohol abuse presents to the ED for the same. He reports that he is a daily drinker, but recently decided to quit cold turkey. He was suffering from withdrawal symptoms and ultimately began drinking again this afternoon. He also reports epigastric abdominal pain and nausea. No seizures. Related Data Home Medications Medication Instructions Recorded Confirmed thiamine mononitrate (vit B1) 100 mg PO DAILY 10/12/20 10/12/20 cholecalciferol (vitamin D3) 01/05/21 thiamine mononitrate (vit B1) 01/05/21 Allergies Allergy/AdvReac Type Severity Reaction Status Date / Time No Known Allergies Allergy Verified 01/05/21 00:51 Review of Systems Review of Systems: All systems reviewed & are unremarkable except as noted in HPI and below Constitutional: Constitutional: Denies fever(s) Eyes: Eyes: Reports no additional eye complaints Cardiovascular: Cardiovascular: Denies chest pain Respiratory: Respiratory: Denies dyspnea Gastrointestinal: Gastrointestinal: Reports abdominal pain and Reports nausea Genitourinary: Genitourinary: Reports no additional male genitourinary complaints Musculoskeletal: Musculoskeletal: Reports back pain Neurologic: Comments: tremoor PMFSH Past Medical History Medical History Acute blood loss anemia Alcohol abuse Alcoholic liver disease Depression Elevated liver enzymes Erosive esophagitis Generalized anxiety disorder Hematemesis History of suicide attempt 2 times as a teenager he cut his wrist 1 time and overdose on pills a 2nd time Surgical History Surgical History No pertinent past surgical history Family History Family History Father Diabetes mellitus Grandparent Diabetes mellitus Cerebrovascular accident Mother Alcoholism Diabetes mellitus Social History Social History Social History: The patient lives with his significant other he does not have a durable power of assistant city attorney but we had to use his aunt to be the durable power assistant city attorney if necessary. He is a full code. The patient drinks more than a pt of vodka a day. He used to use marijuana gummies but is not able to use a where he works. He works for [employer]. The patient has no children but lives with his significant other and she has an 8-year-old. Patient is a non smoker. Smoking status: Never smoker Second hand tobacco smoke exposure: Yes Alcohol intake: current Drinks per week: 35 Substance use: never Substance use type: does not use Other substance usage details: 3 drinks a day work day, all day on weekend-vodka and water Last use: 4am Gender identity (if verbalized by the patient): Male Spiritual care concerns: No Exam Const: General: no acute distress and alert Orientation/consciousness: patient oriented x3 HENMT: Head: normal to inspection Neck: Neck: normal visual inspection Resp: Effort & Inspection: normal respiratory effort Auscultation: clear to auscultation bilaterally, no rales, no rhonchi and no wheezes Cardio: Jugular venous distension: no JVD Rate: regular rate Rhythm: regular rhythm Heart sounds: no murmurs GI: Inspection: non-distended GI Palp: Yes Soft to palpation and Yes Tenderness to palpation present (GI) (periumbilical) Skin: General skin exam: normal color Neuro: General: patient oriented x3 and moves all extremities Speech: normal speech Other: minimal tremor Extrem: General: no edema Psych: Appearance: well kempt Affect: normal affect Course Vital Signs Vital signs: Vital Signs Temperature 36.7
[2021-01-05 00:52] LABS: Basophils Percent Auto 0.5 % (0.2-1.2); Eosinophils Absolute Auto 0.1 K/mm3 (0-0.3); Eosinophils Percent Auto 1.2 % (0-4.4); Hematocrit 46.1 % (42.0-52.0); Hemoglobin 15.6 g/dL (14.0-18.0); Immature Granulocyte Absolute 0.02 K/mm3 (0.00-0.031); Immature Granulocyte Percent A 0.3 % (0-0.5); Lymphocytes Absolute Auto 1.45 K/mm3 (0.9-3.2); Lymphocytes Percent Auto 22.3 % (18.3-44.2); Mean Corpuscular HGB Conc 33.8 g/dl (32-36); Mean Corpuscular Hemoglobin 29.6 pg (26-34); Mean Corpuscular Volume 87.5 fl (80-100); Mean Platelet Volume 10.2 fl (7.4-10.4); Monocytes Absolute Auto 0.8 K/mm3 (0.1-0.6); Monocytes Percent Auto 12.6 % (2.6-8.5); Neutrophils Absolute Auto 4.1 K/mm3 (1.3-6.7); Neutrophils Percent Auto 63.1 % (45.5-73.1); Platelet Count Result 200 k/mm3 (150-375); Red Blood Count 5.27 M/mm3 (4.6-6.20); Red Cell Distribution Width 15.9 % (11.5-14.5); White Blood Count 6.5 K/mm3 (4.5-10.0)
[2021-01-05 01:13] LABS: Ethanol 252 mg/dL (<10)
[2021-01-05 01:14] LABS: Alanine Aminotransferase 88 U/L (4-50); Albumin Level 4.8 g/dL (3.5-5.1); Alkaline Phosphatase 68 U/L (38-126); Anion Gap 14 mmol/L (8-16); Aspartate Amino Transferase 176 U/L (17-59); Bilirubin,Total 0.7 mg/dL (0.2-1.3); Blood Urea Nitrogen 7 mg/dL (9-20); Carbon Dioxide 24 mmol/L (22-30); Chloride 102 mmol/L (98-107); Estimated CRCL calculation 109 ml/min; Estimated Glomerular Filt Rate > 60; Glucose 115 mg/dL (65-110); Lipase 870 U/L (23-300); Potassium 3.2 mmol/L (3.4-5.0); Sodium 140 mmol/L (137-145)
[2021-01-05] MEDS: SODIUM CHLORIDE 0.9% IV 1,000 ML 999 ML IV CONT ×2 (01:16→03:24)
[2021-01-05] MEDS: chlordiazePOXIDE (*CRX) 25 MG CAPSULE PO (01:18)
[2021-01-05] MEDS: LORazepam INJ (*CRX) 2 MG/ML VIAL 1 MG IV PUSH ×2 (01:19→06:29)
[2021-01-05] MEDS: PANTOPRAZOLE SODIUM IV 40 MG VIAL IV PUSH (03:23)
--- NOTE | 2021-01-05 04:07 | ADMGEN ---
This patient, Jaiden Urena, was admitted to Medical Room 342-01. Patient/family oriented to hospital policies and general routines including ID bracelet, bed and alarms, visiting hours, pain management, procedures, bathroom and other care routines, personal items, smoking policy, room service/diet, and visiting hours. Information on how to activate the Rapid Response Team has been discussed. Patient/Family are encouraged to report perceived risks to care and to ask questions if they do not understand what they are told or what they should do.
[2021-01-05] MEDS: SODIUM CHLORIDE 0.9% IV 1,000 ML 200 ML IV CONT ×2 (04:54→22:05)
--- NOTE | 2021-01-05 05:20 | PC.NURSE ---
Spoke with Dr Parekh at [address] [facility] [address] Parekh came up to see pt. Will continue to monitor
[2021-01-05] MEDS: chlordiazePOXIDE (*CRX) 25 MG CAPSULE 50 MG PO ×3 (07:33→17:55)
[2021-01-05] MEDS: THIAMINE HCL INJ 100 MG, FOLIC ACID INJ 1 MG, MULTIVITAMINS-12 INJ VIAL 1 5 ML, MULTIVI... IV CONT (07:35)
[2021-01-05 08:19] LABS: Basophils Percent Auto 0.5 % (0.2-1.2); Eosinophils Absolute Auto 0.1 K/mm3 (0-0.3); Eosinophils Percent Auto 3.2 % (0-4.4); Hematocrit 39.8 % (42.0-52.0); Hemoglobin 13.1 g/dL (14.0-18.0); Immature Granulocyte Absolute 0.01 K/mm3 (0.00-0.031); Immature Granulocyte Percent A 0.2 % (0-0.5); Lymphocytes Absolute Auto 1.31 K/mm3 (0.9-3.2); Lymphocytes Percent Auto 30.3 % (18.3-44.2); Mean Corpuscular HGB Conc 32.9 g/dl (32-36); Mean Corpuscular Volume 88.2 fl (80-100); Mean Platelet Volume 9.7 fl (7.4-10.4); Monocytes Absolute Auto 0.5 K/mm3 (0.1-0.6); Monocytes Percent Auto 11.1 % (2.6-8.5); Neutrophils Absolute Auto 2.4 K/mm3 (1.3-6.7); Neutrophils Percent Auto 54.7 % (45.5-73.1); Platelet Count Result 147 k/mm3 (150-375); Red Blood Count 4.51 M/mm3 (4.6-6.20); Red Cell Distribution Width 16.1 % (11.5-14.5); White Blood Count 4.3 K/mm3 (4.5-10.0)
[2021-01-05 08:32] LABS: Alanine Aminotransferase 67 U/L (4-50); Albumin Level 3.8 g/dL (3.5-5.1); Alkaline Phosphatase 52 U/L (38-126); Anion Gap 13 mmol/L (8-16); Aspartate Amino Transferase 141 U/L (17-59); Bilirubin,Total 0.7 mg/dL (0.2-1.3); Blood Urea Nitrogen 5 mg/dL (9-20); Carbon Dioxide 22 mmol/L (22-30); Chloride 105 mmol/L (98-107); Estimated CRCL calculation 121 ml/min; Estimated Glomerular Filt Rate > 60; Glucose 92 mg/dL (65-110); Lipase 620 U/L (23-300); Potassium 2.9 mmol/L (3.4-5.0); Sodium 140 mmol/L (137-145)
[2021-01-05] MEDS: PANTOPRAZOLE 40 MG TABLET PO (08:45)
[2021-01-05] MEDS: POTASSIUM CHLORIDE 20 MEQ TABLET 40 MEQ PO (08:46)
[2021-01-05] MEDS: FOLIC ACID 1 MG TABLET PO (08:46)
[2021-01-05] MEDS: THIAMINE HCL 100 MG TABLET PO (08:46)
[2021-01-05] MEDS: ENOXAPARIN 40 MG/0.4 ML SYRINGE SUB-Q (08:47)
[2021-01-05] MEDS: LOSARTAN POTASSIUM 25 MG TABLET PO (08:47)
[2021-01-05 08:58] LABS: Magnesium 2.1 mg/dL (1.6-2.3)
--- NOTE | 2021-01-05 10:15 | PM.IMHP ---
H&P: HPI History of Present Illness Date/Time: 01/05/21899 Chief Complaint: Alcohol withdrawal Narrative: Date of Service 01/05/21899 The supervising physician for this history and physical is Dr Karina Junior. Jaiden Urena is a 30yo M with history of generalized anxiety and depression, alcohol abuse, and hypertension who presented to the ED at the instruction of his primary care provider due to alcohol withdrawal. Patient notes a longstanding history of alcohol abuse and started drinking liquor heavily around 5 years ago. He described he was recently trying to wean himself down to drink less alcohol but around 1 week ago ended up drinking excessively, around 1 handle of Isn's vodka daily (1750mLs). Several days later he tried to quit drinking cold-turkey and began to develop withdrawal symptoms 01/03 with altered mental status, diaphoresis, and shakiness while at work. Yesterday he had similar symptoms and described he could not walk or talk well at work, so he drank 8 double shots of whiskey to help with his symptoms. He also describes vomiting and nonbloody diarrhea in the last few days but none today. His PCP recommended he present to the ER. He reports feeling okay today, just tired. Describes a mild headache but otherwise offers no complaints. He denies chest pain, shortness of breath, nervousness, nausea or vomiting. Not very hungry and didn't eat anything yesterday. His last drink was 01/04/21. Routine labs demonstrate low potassium which has been replaced. Liver enzymes are elevated. Lipase elevated. CT abd/pel performed due to vomiting shows no acute findings and is detailed below; pancreas is normal-appearing. He is admitted to the hospitalist service in observation status for management of alcohol withdrawal. I am notified by nursing that he scores moderate suicide risk today. He denies any current thoughts of wanting to hurt himself or anyone else at present. He has history of suicide attempt x 2 in the past. Review of Systems Review of Systems: All systems reviewed & are unremarkable except as noted in HPI and below PMFSH Past Medical History Medical History (Updated 01/05/21 @ 13:06 by Dina Lopez PA-C) Acute blood loss anemia Alcohol abuse Alcoholic liver disease Depression Elevated liver enzymes Erosive esophagitis Generalized anxiety disorder Hematemesis History of suicide attempt 2 times as a teenager he cut his wrist 1 time and overdose on pills a 2nd time Surgical History Surgical History (Updated 01/05/21 @ 12:55 by Dina Lopez PA-C) History of facial surgery Patient reports metal plate placed in his face after a facial fracture - 2012. Family History Family History Father Diabetes mellitus Grandparent Diabetes mellitus Cerebrovascular accident Mother Alcoholism Diabetes mellitus Social History Social History (Updated 01/05/21 @ 12:58 by Dina Lopez PA-C) Social History: Patient lives at home in [place]. Was drinking more than 1 pint of vodka daily. Works for [email or web address] in [employer]. Denies tobacco or other substance use at present. PCP: Dr Bhatt Code: Full Code status. Designates his aunt, Joel, to be his surrogate decision maker Second hand tobacco smoke exposure: Yes Alcohol intake: current Drinks per week: 35 Substance use: never Substance use type: does not use Other substance usage details: 3 drinks a day work day, all day on weekend-vodka and water Last use: 01/04/21 Gender identity (if verbalized by the patient): Male Spiritual care concerns: No Meds Home Medications and Allergies Home Medications Medication Instructions Recorded Confirmed Type folic acid 1 mg PO DAILY #30 tablet 07/24/20 01/05/21 Rx cholecalciferol (vitamin D3) 1,250 1,250 mcg PO WEEKLY #14 cap 08/15/20 01/05/21 Rx mcg (50,000 unit) capsule buspirone 5 mg tablet Se
--- NOTE | 2021-01-05 13:33 | PC.NURSE ---
On 01/05/21, the student, [ Jana Quigley], provided care and completed [facility] documentation on this patient. I have reviewed the student's documentation and agree with the findings.
[2021-01-05 14:47] LABS: Anion Gap 7 mmol/L (8-16); Blood Urea Nitrogen 5 mg/dL (9-20); Calcium 8.3 mg/dL (8.4-10.2); Carbon Dioxide 26 mmol/L (22-30); Chloride 103 mmol/L (98-107); Estimated CRCL calculation 137 ml/min; Estimated Glomerular Filt Rate > 60; Glucose 82 mg/dL (65-110); Potassium 3.6 mmol/L (3.4-5.0); Sodium 136 mmol/L (137-145)
[2021-01-06] VITALS (12 sets, daily range): BP systolic 128–138; BP diastolic 85–99; PULSE 68–111; RESP 16–18; TEMP 35.7–36.4; O2SAT 100
[2021-01-06] MEDS: LORazepam INJ (*CRX) 2 MG/ML VIAL 1 MG IV PUSH ×2 (00:08→23:20)
[2021-01-06] MEDS: chlordiazePOXIDE (*CRX) 25 MG CAPSULE 50 MG PO ×5 (00:08→23:18)
[2021-01-06] MEDS: SODIUM CHLORIDE 0.9% IV 1,000 ML 200 ML IV CONT (05:05)
[2021-01-06 06:07] LABS: Basophils Percent Auto 0.5 % (0.2-1.2); Eosinophils Absolute Auto 0.1 K/mm3 (0-0.3); Eosinophils Percent Auto 3.3 % (0-4.4); Hematocrit 39.3 % (42.0-52.0); Hemoglobin 12.8 g/dL (14.0-18.0); Immature Granulocyte Absolute 0.03 K/mm3 (0.00-0.031); Immature Granulocyte Percent A 0.7 % (0-0.5); Lymphocytes Absolute Auto 0.88 K/mm3 (0.9-3.2); Lymphocytes Percent Auto 20.6 % (18.3-44.2); Mean Corpuscular HGB Conc 32.6 g/dl (32-36); Mean Corpuscular Hemoglobin 30.1 pg (26-34); Mean Corpuscular Volume 92.5 fl (80-100); Mean Platelet Volume 9.9 fl (7.4-10.4); Monocytes Absolute Auto 0.4 K/mm3 (0.1-0.6); Monocytes Percent Auto 8.9 % (2.6-8.5); Neutrophils Absolute Auto 2.8 K/mm3 (1.3-6.7); Platelet Count Result 135 k/mm3 (150-375); Red Blood Count 4.25 M/mm3 (4.6-6.20); Red Cell Distribution Width 16.1 % (11.5-14.5); White Blood Count 4.3 K/mm3 (4.5-10.0)
[2021-01-06 06:19] LABS: Alanine Aminotransferase 63 U/L (4-50); Albumin Level 3.6 g/dL (3.5-5.1); Alkaline Phosphatase 53 U/L (38-126); Anion Gap 6 mmol/L (8-16); Aspartate Amino Transferase 111 U/L (17-59); Bilirubin,Total 0.9 mg/dL (0.2-1.3); Blood Urea Nitrogen 2 mg/dL (9-20); Calcium 8.5 mg/dL (8.4-10.2); Carbon Dioxide 26 mmol/L (22-30); Chloride 105 mmol/L (98-107); Estimated CRCL calculation 121 ml/min; Estimated Glomerular Filt Rate > 60; Glucose 91 mg/dL (65-110); Lipase 710 U/L (23-300); Potassium 3.8 mmol/L (3.4-5.0); Sodium 137 mmol/L (137-145)
[2021-01-06] MEDS: ENOXAPARIN 40 MG/0.4 ML SYRINGE SUB-Q (08:49)
[2021-01-06] MEDS: PANTOPRAZOLE 40 MG TABLET PO (08:50)
[2021-01-06] MEDS: FOLIC ACID 1 MG TABLET PO (08:50)
[2021-01-06] MEDS: LOSARTAN POTASSIUM 25 MG TABLET PO (08:50)
[2021-01-06] MEDS: THIAMINE HCL 100 MG TABLET PO (08:50)
--- NOTE | 2021-01-06 10:26 | PC.NURSE ---
On 01/06/21, the student, [ Jana Quigley], provided care and completed [facility] documentation on this patient. I have reviewed the student's documentation and agree with the findings.
[2021-01-06] MEDS: SODIUM CHLORIDE 0.9% IV 1,000 ML 125 ML IV CONT ×3 (10:37→19:27)
[2021-01-06 11:48] LABS: Hepatitis B Surface Antigen Negative (Negative)
[2021-01-06 11:54] LABS: HAV RESULT Negative (Negative); Hepatitis B Core IgM Result Negative (Negative)
[2021-01-06 12:06] LABS: Hepatitis C Virus Antibody Negative (Negative)
--- NOTE | 2021-01-06 16:40 | PM.IMPN ---
Progress Note: A&P Assessment and Plan (1) Alcohol abuse: Code(s): F10.10 - Alcohol abuse, uncomplicated Status: Acute Assessment and Plan: Last drink 01/04/21. Well-appearing today. Continue monitoring with CIWA protocol. Last CIWA is 4 this afternoon. Continue scheduled Librium with PRN Ativan. Continue supportive care with IV hydration and antiemetics. (2) Erosive esophagitis: Code(s): K22.10 - Ulcer of esophagus without bleeding Status: Chronic Assessment and Plan: History of esophagitis by EGD. Continue PPI. (3) HTN (hypertension): Qualifiers: Hypertension type: essential hypertension Qualified Code(s): I10 - Essential (primary) hypertension Code(s): I10 - Essential (primary) hypertension Status: Chronic Assessment and Plan: Elevated on arrival but improved, systolic still a bit high. Last 128/. Continue his home losartan. Monitor BP and adjust treatment as needed. (4) Elevated liver enzymes: Code(s): R74.8 - Abnormal levels of other serum enzymes Status: Chronic Assessment and Plan: Chronic, suspect related to his alcohol use. Trending down today. Bili is normal. I suspect his recent GI symptoms were related to alcohol withdrawal rather than of biliary etiology. Monitor LFTs. Hepatitis panel negative. (5) Generalized anxiety disorder: Code(s): F41.1 - Generalized anxiety disorder Status: Chronic Assessment and Plan: Depression with anxiety. Continue his home buspar. Noted to have two previous suicide attempts as a teenager. Notified by nursing yesterday he was a moderate suicide risk by their assessment. He denies thoughts of hurting himself or anyone else to me at present. Will continue to monitor closely. (6) Elevated lipase: Code(s): R74.8 - Abnormal levels of other serum enzymes Status: Acute Assessment and Plan: Lipase elevated at 870 on arrival, [address] abdomen without evidence of acute pancreatitis. Denies abdominal pain. Lipase may be elevated secondary to recent vomiting prior to arrival vs. early/developing alcoholic pancreatitis. Vomiting may have been related to alcohol withdrawal. Stay on clear liquid diet for today and recheck lipase in AM. Subjective Date/time seen: 01/06/21 1500 Interval history: Jaiden Urena is a 30yo M with history of depression, anxiety and alcohol use disorder who is seen in follow up for alcohol withdrawal and elevated lipase. He reports feeling better today. Tolerating clear liquids without nausea, vomiting or abdominal pain. Diarrhea x 2 this morning, nonbloody. Denies chest pain or shortness of breath. No tremors. Overall doing well. Review of Systems Review of Systems: All systems reviewed & are unremarkable except as noted in HPI and below Exam Narrative: General: Well-appearing, well-developed male resting comfortably supine in bed in no acute distress. HEENT: Normocephalic, atraumatic, EOMI, PERRL, oral mucosa moist. Neck: Supple. Chest: Clear to auscultation RAISA. Respirations even and nonlabored. Tolerating room air. Heart: Rate and rhythm regular, Abdomen: Soft, nontender, nondistended. Bowel sounds present. Skin: Warm, dry. Several tattoos. Extremities: Peripheral pulses intact. No edema, erythema or pain to palpation. Neurologic: Awake and alert; answering questions appropriately. No focal neurologic deficits are noted. Speech is clear. Psychiatric: Flat, withdrawn but pleasant and cooperative. Objective Data Vital Signs Vital Signs: Last Vital Signs Temp 96.6 F L 01/06/21 14:00 Pulse 72 01/06/21 14:00 Resp 18 01/06/21 14:00 BP 128/92 H 01/06
[2021-01-06] MEDS: busPIRone HCL 5 MG TABLET BY MOUTH (19:29)
[2021-01-07] MEDS: SODIUM CHLORIDE 0.9% IV 1,000 ML 125 ML IV CONT (03:45)
[2021-01-07 05:17] LABS: Hematocrit 38.3 % (42.0-52.0); Hemoglobin 12.6 g/dL (14.0-18.0)
[2021-01-07] MEDS: chlordiazePOXIDE (*CRX) 25 MG CAPSULE 50 MG PO (05:17)
[2021-01-07 05:22] VITALS: BP 151/97; PULSE 78; RESP 16; TEMP 35.8; O2SAT 100
[2021-01-07 05:31] LABS: Alanine Aminotransferase 60 U/L (4-50); Albumin Level 3.5 g/dL (3.5-5.1); Alkaline Phosphatase 51 U/L (38-126); Anion Gap 5 mmol/L (8-16); Aspartate Amino Transferase 94 U/L (17-59); Bilirubin,Total 0.6 mg/dL (0.2-1.3); Calcium 8.7 mg/dL (8.4-10.2); Carbon Dioxide 25 mmol/L (22-30); Chloride 108 mmol/L (98-107); Estimated CRCL calculation 137 ml/min; Estimated Glomerular Filt Rate > 60; Glucose 87 mg/dL (65-110); Lipase 431 U/L (23-300); Potassium 3.7 mmol/L (3.4-5.0); Sodium 138 mmol/L (137-145)
[2021-01-07 05:38] LABS: Blood Urea Nitrogen < 2 mg/dL (9-20)
[2021-01-07] MEDS: PANTOPRAZOLE 40 MG TABLET PO (08:12)
[2021-01-07] MEDS: FOLIC ACID 1 MG TABLET PO (08:12)
[2021-01-07] MEDS: THIAMINE HCL 100 MG TABLET PO (08:12)
[2021-01-07] MEDS: LOSARTAN POTASSIUM 25 MG TABLET PO (08:12)
[2021-01-07] MEDS: ENOXAPARIN 40 MG/0.4 ML SYRINGE SUB-Q (08:14)
--- NOTE | 2021-01-07 11:09 | PM.DS ---
DS: Admitting Diagnosis Admitting Diagnosis Alcohol withdrawal DS: Discharge Diagnosis Discharge Diagnosis (1) Alcohol abuse: Code(s): F10.10 - Alcohol abuse, uncomplicated Status: Acute Assessment and Plan: Date of Admission 01/05/21 Date of Discharge 01/07/21 Jaiden Urena is a 30 yo M with history of alcohol use disorder, depression with anxiety, hypertension, and esophagitis who presented to the ED at the recommendation of his PCP for evaluation of his excessive drinking. See HPI for details. He was treated with supportive care with IV hydration and antiemetics. He was treated with scheduled librium which he tolerated well. He had no significant symptoms of withdrawal while being observed. He was educated on the importance of re-establishing care with a psychologist, therapist or psychiatrist to help him develop healthier coping mechanisms for his depression. He is hopeful to quit drinking for good at this point. He is hemodynamically stable for discharge with a tapered course of librium and instructions to follow up with his PCP FAHAD. Last drink 01/04/21. Well-appearing today. Treated with scheduled Librium with PRN Ativan, supportive care with IV hydration and antiemetics. (2) Erosive esophagitis: Code(s): K22.10 - Ulcer of esophagus without bleeding Status: Chronic Assessment and Plan: History of esophagitis by EGD. Continue PPI. (3) HTN (hypertension): Qualifiers: Hypertension type: essential hypertension Qualified Code(s): I10 - Essential (primary) hypertension Code(s): I10 - Essential (primary) hypertension Status: Chronic Assessment and Plan: Elevated on arrival but improved. Continue his home losartan. (4) Elevated liver enzymes: Code(s): R74.8 - Abnormal levels of other serum enzymes Status: Chronic Assessment and Plan: Chronic, suspect related to his alcohol use. Trending down today. Bili is normal. I suspect his recent GI symptoms were related to alcohol withdrawal rather than of biliary etiology. Monitor LFTs. Hepatitis panel negative. (5) Generalized anxiety disorder: Code(s): F41.1 - Generalized anxiety disorder Status: Chronic Assessment and Plan: Depression with anxiety. Continue his home buspar. Noted to have two previous suicide attempts as a teenager. Notified by nursing yesterday he was a moderate suicide risk by their assessment. He denies thoughts of hurting himself or anyone else to me at present. (6) Elevated lipase: Code(s): R74.8 - Abnormal levels of other serum enzymes Status: Acute Assessment and Plan: Lipase elevated. CT abdomen without evidence of acute pancreatitis. Denies abdominal pain. Lipase may be elevated secondary to recent vomiting prior to arrival vs. early/developing alcoholic pancreatitis. Vomiting may have been related to alcohol withdrawal. Diet advanced slowly. Tolerating a low fat diet prior to discharge. Repeat lipase outpatient to monitor and follow up with PCP. DS: Summary Hospital Course Hospital Course: See above Time Spent with Patient Time attestation: Total time spent providing and/or coordinating discharge services: 40 minutes Exam Narrative: General: Well-appearing, well-developed male resting comfortably supine in bed in no acute distress. HEENT: Normocephalic, atraumatic, EOMI, PERRL, oral mucosa moist. Neck: Supple. Chest: Clear to auscultation RAISA. Respirations even and nonlabored. Tolerating room air. Heart: Rate and rhythm regular, Abdomen: Soft, nontender, nondistended. Bowel sounds present. Skin: Warm, dry. Several tattoos. Extremities: Peripheral pulses in
== END 2021-01-07 12:42 | disposition home or self-care (01) ==
LOC: ANHED 00:54 → ANH3MED 03:25
PROVIDERS: Physician Assistant; Admitting Provider Internal Medicine; Emergency Provider Emergency Medicine; PCP Family Medicine; Visit Provider Hospitalist
DX: F10.139 Alcohol abuse with withdrawal, unspecified (principal); K22.10 Ulcer of esophagus without bleeding; R74.8 Abnormal levels of other serum enzymes; F41.8 Other specified anxiety disorders; I10 Essential (primary) hypertension
CPT/HCPCS: 36415; 74177; 80048; 80053; 80074; 80307; 83690; 83735; 85014; 85018; 85025; 96360; 96361; 96365; 96366; 96372; 96374; 96375; 96376; 99285; A9270; C9113; G0378; J1650; J2060; J3411; J3475; J3480; J7030; J7120; Q9967

== ENCOUNTER 2021-01-16 11:20 | Outpatient (CLI) | payer OTHER, SELFPAY ==
[2021-01-16 11:50] LABS: Alanine Aminotransferase 84 U/L (4-50); Albumin Level 4.1 g/dL (3.5-5.1); Alkaline Phosphatase 45 U/L (38-126); Anion Gap 6 mmol/L (8-16); Aspartate Amino Transferase 56 U/L (17-59); Bilirubin,Total 0.5 mg/dL (0.2-1.3); Blood Urea Nitrogen 4 mg/dL (9-20); Calcium 9.5 mg/dL (8.4-10.2); Carbon Dioxide 29 mmol/L (22-30); Chloride 106 mmol/L (98-107); Estimated Glomerular Filt Rate > 60; Glucose 93 mg/dL (65-110); Lipase 326 U/L (23-300); Potassium 3.4 mmol/L (3.4-5.0); Sodium 141 mmol/L (137-145)
== END 2021-01-16 11:21 | disposition home or self-care (01) ==
LOC: ANHLAB 11:21
PROVIDERS: PCP Family Medicine; Visit Provider Physician Assistant
DX: R74.8 Abnormal levels of other serum enzymes (principal)
CPT/HCPCS: 36415; 80053; 83690

== ENCOUNTER 2021-05-10 20:53 | Emergency (ER) | payer OTHER, SELFPAY ==
--- NOTE | 2021-05-10 22:00 | PC.NURSE ---
called for triage with no answer
--- NOTE | 2021-05-10 22:00 | PC.NURSE ---
called, unable to locate pt in waiting room or outside
== END 2021-05-11 04:08 | disposition left against medical advice (07) ==
PROVIDERS: PCP Family Medicine
DX: Z53.21 Procedure and treatment not carried out due to patient leaving prior to being seen by health care provider (principal)
CPT/HCPCS: 99199

== ENCOUNTER 2025-01-26 18:31 | Inpatient (IN) | payer SELFPAY ==
[2025-01-26] VITALS (10 sets, daily range): BP systolic 104–119; BP diastolic 64–77; PULSE 129–138; RESP 14–23; TEMP 36.6; O2SAT 95–98
--- NOTE | ~2025-01-26 | XR_ITS ---
EXAMINATION: XR chest 1V portable 01/27/2025 21:36 INDICATION: Sepsis PROCEDURE: AP portable chest COMPARISON: No prior studies for comparison. FINDINGS: The lungs are clear. The cardiomediastinal silhouette is within normal limits. There are no pleural effusions. There is no pneumothorax suspected. There are healed left rib fractures. IMPRESSION: 1: NO ACUTE CARDIOPULMONARY DISEASE. Reviewed, dictated and finalized at location A.
--- NOTE | ~2025-01-26 | US_ITS ---
EXAMINATION: US paracentesis abd w/image DATE: 01/27/2025 14:08 INDICATION: Ascites and abdominal pain TECHNIQUE: The procedure and its risks and benefits were discussed with the patient. Potential risks discussed included bleeding and infection. The skin was prepped and draped in sterile fashion. 1% lidocaine was used for local anesthesia. Under ultrasound guidance, a 5 Fr catheter with trochar was advanced into the ascites in the lateral right mid abdomen. Fluid was aspirated into vacuum bottles. The catheter was removed, and a dressing was applied. There were no immediate complications. FINDINGS: Ultrasound images demonstrate ascites and the catheter within the fluid. IMPRESSION: 1. Successful ultrasound-guided paracentesis yielding 4000 mL of dark yellowish fluid. Reviewed, dictated and finalized at location A. IMPRESSION: 1. Successful ultrasound-guided paracentesis yielding 4000 mL of dark yellowis h fluid.
--- NOTE | ~2025-01-26 | CT_ITS ---
EXAMINATION: CT abdomen pelvis w con DATE: 01/26/2025 20:41 INDICATION: Ascites. Abdomen pain. TECHNIQUE: Computed tomography (CT) of the abdomen and pelvis was performed with 100 cc Omnipaque 350 intravenous contrast. The dose-length product was 816.38 mGy-cm. Automated exposure control and iterative reconstruction technique were employed. COMPARISON: CT dated 01/05/2021 FINDINGS: Small pleural effusions. Heart size normal. Fatty infiltration of the liver. There is moderate ascites. Nonobstructive bowel gas pattern. No significant vascular abnormality. There is a right renal cysts. Gallbladder is present. No focal lytic or blastic lesions. The spleen, pancreas, adrenal glands and left kidney are unremarkable. IMPRESSION: 1. Fatty infiltration of the liver. 2: Moderate ascites. 3: Small pleural effusions. Reviewed, dictated and finalized at location A.
--- NOTE | 2025-01-26 19:09 | ED.GENADULT ---
HPI - General Adult General Chief complaint: Alcohol Stated complaint: alcoholic Time Seen by Provider: 01/26/25 18:55 History of Present Illness HPI narrative: 34-year-old male with history of alcoholism present to the emergency department for evaluation for uncontrolled alcoholism for approximately last month. Patient drinks multiple shots of whiskey a day. Patient states he had been up at [facility] about a month ago and had gone through detox and felt improved. Patient states he has been drinking daily since then. Patient does have worsening abdominal edema, scleral icterus and generalized weakness. Related Data Home Medications ?Medication ?Instructions ?Recorded ?Confirmed ?Last Taken ?Type thiamine mononitrate (vit B1) 100 100 mg PO DAILY 10/12/20 01/09/21 10/15/20 History mg tablet Allergies Allergy/AdvReac Type Severity Reaction Status Date / Time No Known Allergies Allergy Verified 01/26/25 18:40 Review of Systems Review of Systems: All systems reviewed & are unremarkable except as noted in HPI and below PMFSH Past Medical History Medical History (Updated 01/26/25 @ 21:39 by Jian Amaro MD) Erosive esophagitis Elevated liver enzymes Alcoholic liver disease Acute blood loss anemia History of suicide attempt 2 times as a teenager he cut his wrist 1 time and overdose on pills a 2nd time Generalized anxiety disorder Depression Alcohol abuse Hematemesis Surgical History Surgical History (Updated 01/05/21 @ 12:55 by Dina Lopez PA-C) History of facial surgery Patient reports metal plate placed in his face after a facial fracture - 2012. Family History Family History Father Diabetes mellitus Grandparent Diabetes mellitus Cerebrovascular accident Mother Alcoholism Diabetes mellitus Social History Social History (Updated 01/05/21 @ 12:58 by Dina Lopez PA-C) Social History: Patient lives at home in [place]. Was drinking more than 1 pint of vodka daily. Works for [employer] in [employer]. Denies tobacco or other substance use at present. PCP: Dr Bhatt Code: Full Code status. Designates his aunt, Joel, to be his surrogate decision maker Second hand tobacco smoke exposure: Yes Alcohol intake: current Drinks per week: 35 Substance use: never Substance use type: does not use Other substance usage details: 3 drinks a day work day, all day on weekend-vodka and water Last use: 01/04/21 Living arrangements: with family Gender identity (if verbalized by the patient): Male Spiritual care concerns: No Exam Narrative: APPEARANCE: ill-appearing HEAD: normocephalic, atraumatic. EYES: Scleral icterus NOSE: Normal no drainage EARS:TMS clear with good light reflex. THROAT: Pharynx clear, no exudate. NECK: Supple. No adenopathy, no masses. RESPIRATORY: Airway patent, respirations nonlabored. Clear to auscultation bilaterally, no rales, rhonchi, wheezing. CARDIOVASCULAR: tachycardia ABDOMINAL: ascites MUSCULOSKELETAL: Moves all extremities. Strength/ROM intact, No edema, No calf tenderness. NEURO: Alert. Cranial nerves II through XII intact. Good gait. Good coordination SKIN: Warm, dry. Normal Color Course Vital Signs Vital signs: Vital Signs Temperature 97.8 F 01/26/25 18:36 Pulse Rate 130 H 01/26/25 18:36 Respiratory Rate 16 01/26/25 18:36 Blood Pressure 104/64 01/26/25 18:36 Pulse Oximetry 96 01/26/25 18:36 Oxygen Delivery Room Air 01/26/25 18:36 Temperature 97.8 F 01/26/25 18:36 Pulse Rate 134 H 01/26/25 22:45 Respiratory Rate 21 H 01/26/25 22:45 Blood Pressure 115/73 01/26/25 20:39 Pulse Oximetry 98 01/26/25 22:30 Oxygen Delivery Room Air 01/26/25 18:36 Medical Decision Making [facility] Narrative Medical decision making narrative: [age] old male with history of alcoholic liver disease presents emergency department for evaluation after 1 month bingeing. Patient is still intoxicated with a blood alcohol of 378. Patient is currently afebrile but does have a leukocytosis of 17.5 and hemoglobin of 15.2. Patient has an INR of 1.8. Patient does have AT bili of 18 AST of 616 ALT of 113 alk-phos of 295 lipase of 532 and albumin of 3.1. UA was positive for nitrates but otherwise negative for infection. Patient was negative for hepatitis-A hepatitis B surface antigen hepatitis-B core and hepatitis C antibody. CTs does show fatty liver liver infiltration, moderate ascites. Case was discussed with hospitalist and patient was not accepted feeling that the patient would benefit from a tertiary care center and hepatology. I did call the [facility] transfer center and patient was accepted by the GI physician Dr. Rangel. Differential Diagnosis Differential Diagnosis: tachycardic, dehydration, liver failure, alcohol withdrawal Vital Signs Vital Signs: Vital Signs Temperature 97.8 F 01/26/25 18:36 Pulse Rate 130 H 01/26/25 18:36 Respiratory Rate 16 01/26/25 18:36 Blood Pressure 104/64 01/26/25 18:36 Pulse Oximetry 96 01/26/25 18:36 Oxygen Delivery Room Air 01/26/25 18:36 Temperature 97.8 F 01/26/25 18:36 Pulse Rate 134 H 01/26/25 22:45 Respiratory Rate 21 H 01/26/25 22:45 Blood Pressure 115/73 01/26/25 20:39 Pulse Oximetry 98 01/26/25 22:30 Oxygen Delivery Room Air 01/26/25 18:36 Lab Data 01/26/25 19:23 01/26/25 19:23 Labs: Lab Results 01/26/25 01/26/25 01/26/25 Range/Units 19:21 19:23 19:23 WBC 17.5 H (4.5-10.0) K/mm3 RBC 4.65 (4.6-6.20) M/mm3 Hgb 15.2 (14.0-18.0) g/dL Hct 42.7 (42.0-52.0) % MCV 91.8 (80-100) fl MCH 32.7 (26-34) pg MCHC 35.6 (32-36) g/dl RDW 15.2 H (11.5-14.5) % Plt Count 474 H D (150-375) k/mm3 MPV 10.3 (7.4-10.4) fl Immature Gran % (Auto) 2.1 H (0-0.5) % Neut % (Auto) 80.5 H (45.5-73.1) % Lymph % (Auto) 10.2 L (18.3-44.2) % [place]clenn[place] % (Auto) 6.1 (2.6-8.5) % Eos % (Auto) 0.2 (0-4.4) % Baso % (Auto) 0.9 (0.2-1.2) % Lymph # (Auto) 1.79 (0.9-3.2) K/mm3 Mclennan # (Auto) 1.1 H (0.1-0.6) K/mm3 Eos # (Auto) 0.0 (0-0.3) K/mm3 Baso # (Auto) 0.2 H (0.0-0.1) K/mm3 Abs Immat Gran (auto) 0.36 H (0.00-0.031) K/mm3 Absolute Neuts (auto) 14.1 H (1.3-6.7) K/mm3 Absolute Nucleated RBC 0.040 H (0.0-0.012) K/mm3 Nucleated RBC % 0.2 (0.0-0.2) % PT 20.9 H (11.1-14.7) Seconds INR 1.8 APTT 51.5 H (22.3-36.8) Seconds Sodium 131 L (137-145) mmol/L Potassium 3.5 (3.4-5.0) mmol/L Chloride 94 L (98-107) mmol/L Carbon Dioxide 25 (22-30) mmol/L Anion Gap 12 (4-12) mmol/L BUN 3 L (9-20) mg/dL Creatinine 0.75 (0.7-1.3) mg/dL Estim Creat Clear Calc Not Reportable Estimated GFR > 60 (59 - ) Glucose 133 H (65-110) mg/dL Lactic Acid 3.8 H (0.7-2.0) mmol/L Calcium 7.5 L (8.4-10.2) mg/dL Total Bilirubin 18.0 H (0.2-1.3) mg/dL Direct Bilirubin 8.7 H (0-0.3) mg/dL AST 616 H (17-59) U/L ALT 113 H (6-50) U/L Alkaline Phosphatase 295 H (38-126) U/L Ammonia 21 (9-30) umol/L Total Protein 7.7 (6.3-8.2) g/dL Albumin 3.1 L (3.5-5.1) g/dL Lipase 532 H (23-300) U/L Urine Color (Yellow) Urine Appearance (Clear) Urine pH (5.0-9.0) Ur Specific [place] (1.001-1.035) Urine Protein (Negative) mg/dL Urine Glucose (UA) (Negative) mg/dL Urine Ketones (Negative) mg/dL Ur Blood (Man) (Negative) Urine Nitrate (Negative) Urine Bilirubin (Negative) Urine Urobilinogen (<2.0) mg/dL Add Ur Microanalysis Leukocyte Esterase Rfl (Negative) RON/UL Urine RBC (0-2) /hpf Urine WBC (0-3) /hpf Ur Squamous Epith Cells (Few) /hpf Urine Bacteria /hpf Urine Casts Gastric Fluid pH (1-8) Gastric Occult Blood Ethyl Alcohol 378 H* Cancelled (<10) mg/dL Hepatitis A IgM Ab Negative (Negative) Hep Bs Antigen Negative (Negative) Hep B Core IgM Ab Negative (Negative) Hepatitis C Ab Screen Negative (Negative) 01/26/25 01/26/25 01/26/25 Range/Units 19:28 22:10 22:27 WBC (4.5-10.0) K/mm3 RBC (4.6-6.20) M/mm3 Hgb (14.0-18.0) g/dL Hct (42.0-52.0) % MCV (80-100) fl MCH (26-34) pg MCHC (32-36) g/dl RDW (11.5-14.5) % Plt Count (150-375) k/mm3 MPV (7.4-10.4) fl Immature Gran % (Auto) (0-0.5) % Neut % (Auto) (45.5-73.1) % Lymph % (Auto) (18.3-44.2) % Mclennan % (Auto) (2.6-8.5) % Eos % (Auto) (0-4.4) % Baso % (Auto) (0.2-1.2) % Lymph # (Auto) (0.9-3.2) K/mm3 Mclennan # (Auto) (0.1-0.6) K/mm3 Eos # (Auto) (0-0.3) K/mm3 Baso # (Auto) (0.0-0.1) K/mm3 Abs Immat Gran (auto) (0.00-0.031) K/mm3 Absolute Neuts (auto) (1.3-6.7) K/mm3 Absolute Nucleated RBC (0.0-0.012) K/mm3 Nucleated RBC % (0.0-0.2) % PT (11.1-14.7) Seconds INR APTT (22.3-36.8) Seconds Sodium (137-145) mmol/L Potassium (3.4-5.0) mmol/L Chloride (98-107) mmol/L Carbon Dioxide (22-30) mmol/L Anion Gap (4-12) mmol/L BUN (9-20) mg/dL Creatinine (0.7-1.3) mg/dL Estim Creat Clear Calc Estimated GFR (59 - ) Glucose (65-110) mg/dL Lactic Acid 3.9 H (0.7-2.0) mmol/L Calcium (8.4-10.2) mg/dL Total Bilirubin (0.2-1.3) mg/dL Direct Bilirubin (0-0.3) mg/dL AST (17-59) U/L ALT (6-50) U/L Alkaline Phosphatase (38-126) U/L Ammonia (9-30) umol/L Total Protein (6.3-8.2) g/dL Albumin (3.5-5.1) g/dL Lipase (23-300) U/L Urine Color Dark yellow (Yellow) Urine Appearance Cloudy H (Clear) Urine pH 6.0 (5.0-9.0) Ur Specific [place] 1.034 (1.001-1.035) Urine Protein 1+ H (Negative) mg/dL Urine Glucose (UA) Negative (Negative) mg/dL Urine Ketones Negative (Negative) mg/dL Ur Blood (Man) Negative (Negative) Urine Nitrate Positive H (Negative) Urine Bilirubin 3+ H (Negative) Urine Urobilinogen 0.2 (<2.0) mg/dL Add Ur Microanalysis Reviewed Leukocyte Esterase Rfl 1+ H (Negative) RON/UL Urine RBC 0-2 (0-2) /hpf Urine WBC 0-5 (0-3) /hpf Ur Squamous Epith Cells None seen (Few) /hpf Urine Bacteria Trace /hpf Urine Casts 0-2 Gastric Fluid pH 3 (1-8) Gastric Occult Blood Negative Ethyl Alcohol (<10) mg/dL Hepatitis A IgM Ab (Negative) Hep Bs Antigen (Negative) Hep B Core IgM Ab (Negative) Hepatitis C Ab Screen (Negative) Discharge Plan Discharge Clinical Impression: Elevated liver enzymes, Alcohol abuse, Alcoholic liver disease, Abdominal ascites, SBP (spontaneous bacterial peritonitis) Patient Disposition: Acute Care Hospital Condition: Serious Patient Language: Cymraes Prescriptions: No Action folic acid 1 mg tablet 1 mg PO DAILY Qty: 30 0RF chlordiazepoxide HCl 25 mg capsule See Rx Instructions .ROUTE .COMPLEX 6 Days Qty: 17 0RF Rx Instructions: 25 mg four times daily x 2 days, then 25mg three times daily x 2 days, then 25mg twice daily x 1 days, then 25mg once daily x 1 day. thiamine mononitrate (vit B1) 100 mg tablet 100 mg PO DAILY cholecalciferol (vitamin D3) 1,250 mcg (50,000 unit) capsule 1,250 mcg PO WEEKLY Qty: 14 1RF buspirone 5 mg tablet See Rx Instructions .ROUTE .COMPLEX Qty: 270 1RF Dose Instruction: TAKE 1 TABLET BY MOUTH 3 TIMES A DAY NEEDED FOR ANXIETY Rx Instructions: TAKE 1 TABLET BY MOUTH 3 TIMES A DAY NEEDED FOR ANXIETY pantoprazole 40 mg tablet,delayed release (DR/EC) See Rx Instructions .ROUTE .COMPLEX Qty: 180 3RF Dose Instruction: TAKE 1 TABLET BY MOUTH TWICE A DAY Rx Instructions: TAKE 1 TABLET BY MOUTH TWICE A DAY losartan 25 mg tablet 25 mg PO DAILY Qty: 30 5RF Follow-up/Referrals: PHYSICIAN NOT ON STAFF,NONSTAFF [Primary Care Provider]
[2025-01-26 19:33] LABS: Hematocrit 42.7 % (42.0-52.0); Hemoglobin 15.2 g/dL (14.0-18.0); Immature Granulocyte Percent A 2.1 % (0-0.5); Lymphocytes Absolute Auto 1.79 K/mm3 (0.9-3.2); Mean Corpuscular HGB Conc 35.6 g/dl (32-36); Mean Corpuscular Hemoglobin 32.7 pg (26-34); Mean Corpuscular Volume 91.8 fl (80-100); Nucleated Red Blood Cells Absolute Auto 0.040 K/mm3 (0.0-0.012); Nucleated Red Blood Cells Perc 0.2 % (0.0-0.2); Platelet Count Result 474 k/mm3 (150-375); Red Blood Count 4.65 M/mm3 (4.6-6.20); White Blood Count 17.5 K/mm3 (4.5-10.0)
[2025-01-26] MEDS: ONDANSETRON INJ 4 MG/2 ML VIAL IV PUSH (19:40)
[2025-01-26 19:41] LABS: Alanine Aminotransferase 113 U/L (6-50); Albumin Level 3.1 g/dL (3.5-5.1); Alkaline Phosphatase 295 U/L (38-126); Anion Gap 12 mmol/L (4-12); Aspartate Amino Transferase 616 U/L (17-59); Bilirubin,Total 18.0 mg/dL (0.2-1.3); Blood Urea Nitrogen 3 mg/dL (9-20); Calcium 7.5 mg/dL (8.4-10.2); Carbon Dioxide 25 mmol/L (22-30); Chloride 94 mmol/L (98-107); Estimated Glomerular Filt Rate > 60; Glucose 133 mg/dL (65-110); Lipase 532 U/L (23-300); Potassium 3.5 mmol/L (3.4-5.0); Sodium 131 mmol/L (137-145); Total Protein 7.7 g/dL (6.3-8.2)
[2025-01-26] MEDS: LACTATED RINGERS 1,000 ML 999 ML IV CONT ×2 (19:41→19:58)
[2025-01-26 19:45] LABS: INR 1.8; Prothrombin Time 20.9 Seconds (11.1-14.7)
[2025-01-26 19:46] LABS: Partial Thromboplastin Time 51.5 Seconds (22.3-36.8)
[2025-01-26 19:52] LABS: Add Urine Microscopic? YES; Appearance Urine Cloudy (Clear); Glucose Urine UA Negative (Negative); Leukocyte Esterase Ur 1+ LEU/UL (Negative); Need Manual Microscopic Reviewed; Nitrate Urine Positive (Negative); Non Pathogenic Casts 0-2; Specific Grav Ur 1.034 (1.001-1.035)
[2025-01-26] MEDS: THIAMINE HCL 200 MG/2 ML VIAL 100 MG IV PUSH (19:55)
[2025-01-26 19:58] LABS: Ammonia 21 umol/L (9-30)
[2025-01-26] MEDS: MORPHINE SULFATE (*CRX) 2 MG/ML INJ IV PUSH (20:21)
[2025-01-26 21:08] LABS: Hepatitis B Surface Antigen Negative (Negative)
[2025-01-26 21:13] LABS: HAV RESULT Negative (Negative); Hepatitis B Core IgM Result Negative (Negative)
[2025-01-26 22:22] LABS: Gastric Negative Control Negative; Gastric Positive Control Positive
[2025-01-26] MEDS: HYDROmorphone HCL INJ (*CRX) 1 MG/ML SYR 0.5 MG IV PUSH (22:39)
[2025-01-26] MEDS: METOCLOPRAMIDE HCL INJ 10 MG/2 ML VIAL IV PUSH (22:41)
[2025-01-26] MEDS: PANTOPRAZOLE SODIUM IV 40 MG VIAL IV PUSH (22:43)
[2025-01-26] MEDS: cefTRIAXone 1 GM in SODIUM CHLORIDE 0.9% IV 50 ML 100 ML IVPB (22:44)
[2025-01-26] MEDS: metroNIDAZOLE 500 MG/ISO 100ML 500 MG/100 ML BAG 100 MG IVPB (22:46)
--- NOTE | 2025-01-26 23:55 | PC.NURSE ---
Pt placed in bed awaiting trnasfer to [place]. Currently on GI waitlist. No time frame given
[2025-01-27] VITALS (100 sets, daily range): BP systolic 89–140; BP diastolic 53–98; PULSE 131–152; RESP 14–36; TEMP 36.9–38.2; O2SAT 92–100; BMI 35.4
[2025-01-27] MEDS: ALBUMIN HUMAN 25% 25 GM/100 ML 200 ML IVPB (01:04)
[2025-01-27] MEDS: METOCLOPRAMIDE HCL INJ 10 MG/2 ML VIAL IV PUSH ×2 (03:49→07:53)
[2025-01-27] MEDS: LORazepam INJ (*CRX) 2 MG/ML VIAL 1 MG IV PUSH ×4 (05:52→20:28)
[2025-01-27] MEDS: metroNIDAZOLE 500 MG/ISO 100ML 500 MG/100 ML BAG 100 MG IVPB ×3 (06:10→21:32)
--- NOTE | 2025-01-27 07:31 | PC.NURSE ---
assumed care of pt at this time. pt is laying comfortably in a hospital bed, in no acute distress. seizure precautions were initiated at this time.
[2025-01-27] MEDS: SODIUM CHLORIDE 0.9% IV 1,000 ML 999 ML IV CONT ×2 (07:50→20:14)
[2025-01-27] MEDS: MORPHINE SULFATE (*CRX) 2 MG/ML INJ IV PUSH (08:11)
--- NOTE | 2025-01-27 09:06 | PC.NURSE ---
Gave update to [facility] - reports no bed for days
--- NOTE | 2025-01-27 09:31 | PC.NURSE ---
pt had an 18g IV in his LAC that was initiated before this RN assumed care. IV was infiltrated. IV was discontinued at this time, catheter removed intact, WNL
[2025-01-27] MEDS: FOLIC ACID 1 MG/0.2 ML INJ IV PUSH (09:46)
[2025-01-27] MEDS: THIAMINE HCL 200 MG/2 ML VIAL 100 MG IV PUSH (09:50)
[2025-01-27] MEDS: PANTOPRAZOLE SODIUM IV 40 MG VIAL IV PUSH (09:52)
[2025-01-27] MEDS: DEXTROSE 5%/0.9% SOD CHL 1,000 ML 125 ML IV CONT ×2 (09:55→17:49)
--- NOTE | 2025-01-27 10:18 | PC.NURSE ---
ultrasound called and said the pt will be getting his paracentesis around 1300 today
--- NOTE | 2025-01-27 10:48 | PC.NURSE ---
RENEE called and updated that there are no beds and probably wont be for today and he has a few names ahead of him on the list
--- NOTE | 2025-01-27 14:33 | PC.NURSE ---
Lunch tray ordered for patient.
[2025-01-27 15:48] LABS: Source Peritoneal Fluid Peritoneal Fluid
[2025-01-27 15:49] LABS: Appearance Peritoneal Fluid Clear (Clear); Color Peritoneal Fluid Yellow (Colorless); Nucleated Cells Peritoneal Flu 95 /uL (0-500)
[2025-01-27 16:04] LABS: Lymphocytes Peritoneal Fluid 6 %; Mesothelial Cells Peritoneal Fluid 17 %; Monocytes Peritoneal Fluid 40 %; Neutrophils Peritoneal Fluid 37 % (0-25)
[2025-01-27] MEDS: PHENobarbitaL sodium (*CRX) 130 MG/ML VIAL 100 MG IV PUSH (19:23)
[2025-01-27 20:15] LABS: Hematocrit 32.9 % (42.0-52.0); Hemoglobin 11.7 g/dL (14.0-18.0); Immature Granulocyte Percent A 1.8 % (0-0.5); Lymphocytes Absolute Auto 1.38 K/mm3 (0.9-3.2); Mean Corpuscular HGB Conc 35.6 g/dl (32-36); Mean Corpuscular Hemoglobin 33.0 pg (26-34); Mean Corpuscular Volume 92.7 fl (80-100); Nucleated Red Blood Cells Absolute Auto 0.020 K/mm3 (0.0-0.012); Nucleated Red Blood Cells Perc 0.1 % (0.0-0.2); Platelet Count Result 199 k/mm3 (150-375); Red Blood Count 3.55 M/mm3 (4.6-6.20); White Blood Count 13.9 K/mm3 (4.5-10.0)
[2025-01-27] MEDS: ONDANSETRON INJ 4 MG/2 ML VIAL (20:17)
[2025-01-27 20:26] LABS: Ammonia 70 umol/L (9-30)
[2025-01-27 20:27] LABS: INR 2.1; Prothrombin Time 23.4 Seconds (11.1-14.7)
[2025-01-27 20:28] LABS: Alanine Aminotransferase 73 U/L (6-50); Albumin Level 2.6 g/dL (3.5-5.1); Alkaline Phosphatase 179 U/L (38-126); Anion Gap 11 mmol/L (4-12); Aspartate Amino Transferase 392 U/L (17-59); Bilirubin,Total 15.9 mg/dL (0.2-1.3); Blood Urea Nitrogen < 2 mg/dL (9-20); Calcium 7.2 mg/dL (8.4-10.2); Carbon Dioxide 19 mmol/L (22-30); Chloride 97 mmol/L (98-107); Estimated CRCL calculation 166 ml/min; Estimated Glomerular Filt Rate > 60; Glucose 125 mg/dL (65-110); Magnesium 1.5 mg/dL (1.6-2.3); Partial Thromboplastin Time 53.4 Seconds (22.3-36.8); Potassium 2.9 mmol/L (3.4-5.0); Sodium 127 mmol/L (137-145); Total Protein 6.1 g/dL (6.3-8.2)
--- NOTE | 2025-01-27 20:40 | PM.IMHP ---
H&P: HPI History of Present Illness Date/Time: 01/27/25 20:40 Chief Complaint: Weakness, Alcoholism Narrative: 34 y/o M with PMH of erosive esophagitis, alcoholic liver disease, generalized anxiety disorder, depression, alcohol abuse, and previous suicide attempt presents here with weakness and uncontrolled alcoholism. The patient presents here from home on 01/26 for further evaluation of uncontrolled alcoholism. The patient reports a longstanding history of alcoholism, drinks approximately 9 double shots per day. He reports he recently went through a detox program approximately 1 month ago at [facility] and had initially put improved. However patient has began drinking again for the past month which has resulted in worsening abdominal edema, scleral icterus, and generalized weakness. He reports associated nausea, dry cough secondary to the nausea and abdominal discomfort that is generalized. Denies chills, body aches, diarrhea, confusion, hallucinations. Patient reports he has been heavily drinking for the past 14 years. Initial VS at presentation: 97.8? F, HR 130, R 16, 104/64, and 96% on RA. ED workup showed: WBC 13.9, hemoglobin 15.2 (12.6 in 2020), platelet count of 474, INR 1.8 Ancef, sodium 131, creatinine 0.75 and a GFR >60, calcium 7.5 in the setting of an albumin of 3.1, total bilirubin 18.0, direct bilirubin 8.7, AST 6.6, ALT 113, alk-phos 295, initial ammonia 21 (repeat 70), lipase 532, and lactic 3.8. CT of the abdomen/pelvis from 01/26 showed fatty infiltration of the liver, moderate ascites, and small bilateral pleural effusions. Patient underwent a paracentesis on 01/27 which yielded 4000 mL of dark yellowish fluid - fluid studies pending. G stain showed rare white blood cells with no organisms. Review of Systems Review of Systems: All systems reviewed & are unremarkable except as noted in HPI and below PMFSH Past Medical History Medical History Anemia Esophageal ulcer Generalized anxiety disorder Depression Erosive esophagitis Alcoholic liver disease History of suicide attempt 2 times as a teenager he cut his wrist 1 time and overdose on pills a 2nd time Alcohol abuse Hematemesis Surgical History Surgical History History of facial surgery Patient reports metal plate placed in his face after a facial fracture - 2012. Family History Family History Father Diabetes mellitus Grandparent Diabetes mellitus Cerebrovascular accident Mother Alcoholism Diabetes mellitus Social History Social History Social History: Patient lives at home in [place]. Was drinking more than 1 pint of vodka daily. Works for [employer] in [place]. Denies tobacco or other substance use at present. PCP: Dr Bhatt Code: Full Code status. Designates his aunt, Joel, to be his surrogate decision maker Second hand tobacco smoke exposure: Yes Alcohol intake: current Drinks per week: 35 Substance use: never Substance use type: does not use Other substance usage details: 3 drinks a day work day, all day on weekend-vodka and water Last use: 01/04/21 Living arrangements: with family Gender identity (if verbalized by the patient): Male Spiritual care concerns: No Meds Home Medications and Allergies Home Medications ?Medication ?Instructions ?Recorded ?Confirmed ?Type folic acid 1 mg tablet 1 mg PO DAILY #30 tabs 07/24/20 01/09/21 Rx thiamine mononitrate (vit B1) 100 100 mg PO DAILY 10/12/20 01/09/21 History mg tablet chlordiazepoxide HCl 25 mg capsule See Rx Instructions .Route 01/07/21 01/09/21 Rx .COMPLEX 6 days #17 caps cholecalciferol (vitamin D3) 1,250 1,250 mcg PO WEEKLY #14 caps 03/03/21 Rx mcg (50,000 unit) capsule buspirone 5 mg tablet See Rx Instructions .Route 04/04/21 Rx .COMPLEX #270 tabs pantoprazole 40 mg tablet,delayed See Rx Instructions .Route 07/03/21 Rx release .COMPLEX #180 tabs losartan 25 mg tablet 25 mg PO DAILY #30 tabs 07/06/21 Rx Allergies Allergy/AdvReac Type Severity Reaction Status Date / Time No Known Allergies Allergy Verified 01/26/25 18:40 Vital Signs Vital Signs - 24 hr 01/26/25 22:30 01/26/25 22:45 01/26/25 23:00 Temperature Pulse Rate 133 H 134 H 134 H Respiratory Rate 23 H 21 H 20 Blood Pressure Pulse Oximetry 98 96 01/26/25 23:15 01/26/25 23:30 01/26/25 23:53 Temperature Pulse Rate 132 H 132 H 138 H Respiratory Rate 20 21 H 14 Blood Pressure Pulse Oximetry 97 97 96 01/26/25 23:54 01/27/25 00:00 01/27/25 00:01 Temperature Pulse Rate 135 H 135 H 135 H Respiratory Rate 15 18 18 Blood Pressure 109/77 89/72 L Pulse Oximetry 95 94 93 01/27/25 00:15 01/27/25 00:30 01/27/25 00:31 Temperature Pulse Rate 141 H 137 H 137 H Respiratory Rate 18 18 17 Blood Pressure 94/65 L Pulse Oximetry 93 94 93 01/27/25 00:45 01/27/25 01:00 01/27/25 01:01 Temperature Pulse Rate 137 H 147 H 148 H Respiratory Rate 17 21 H 22 H Blood Pressure 96/80 L Pulse Oximetry 92 96 97 01/27/25 01:15 01/27/25 01:30 01/27/25 01:31 Temperature Pulse Rate 135 H 137 H 140 H Respiratory Rate 18 14 15 Blood Pressure 118/72 Pulse Oximetry 95 97 96 01/27/25 01:45 01/27/25 02:00 01/27/25 02:01 Temperature Pulse Rate 140 H 132 H 133 H Respiratory Rate 18 20 20 Blood Pressure 129/83 Pulse Oximetry 98 93 94 01/27/25 02:15 01/27/25 02:30 01/27/25 02:31 Temperature Pulse Rate 137 H 133 H 131 H Respiratory Rate 22 H 18 18 Blood Pressure 137/92 H Pulse Oximetry 99 98 96 01/27/25 02:45 01/27/25 03:00 01/27/25 03:01 Temperature Pulse Rate 132 H 134 H 134 H Respiratory Rate 21 H 22 H 21 H Blood Pressure 133/90 Pulse Oximetry 93 97 96 01/27/25 03:15 01/27/25 03:30 01/27/25 03:31 Temperature Pulse Rate 138 H 144 H 140 H Respiratory Rate 22 H 22 H 15 Blood Pressure 131/88 Pulse Oximetry 98 99 97 01/27/25 03:45 01/27/25 04:00 01/27/25 04:01 Temperature Pulse Rate 132 H 140 H 138 H Respiratory Rate 23 H 22 H 21 H Blood Pressure 140/90 Pulse Oximetry 94 99 98 01/27/25 04:15 01/27/25 04:30 01/27/25 04:31 Temperature Pulse Rate 136 H 135 H 136 H Respiratory Rate 22 H 20 24 H Blood Pressure 112/61 Pulse Oximetry 94 94 96 01/27/25 04:45 01/27/25 05:00 01/27/25 05:01 Temperature Pulse Rate 135 H 135 H 136 H Respiratory Rate 21 H 22 H 22 H Blood Pressure 110/68 Pulse Oximetry 96 94 95 01/27/25 05:15 01/27/25 05:30 01/27/25 05:31 Temperature Pulse Rate 136 H 139 H 143 H Respiratory Rate 24 H 24 H 17 Blood Pressure 129/98 H Pulse Oximetry 95 97 98 01/27/25 05:45 01/27/25 06:00 01/27/25 06:01 Temperature Pulse Rate 135 H 135 H 137 H Respiratory Rate 21 H 22 H 22 H Blood Pressure 117/74 Pulse Oximetry 98 94 93 01/27/25 06:30 01/27/25 06:59 01/27/25 07:00 Temperature 98.5 F Pulse Rate 137 H 135 H 136 H Respiratory Rate 23 H 21 H Blood Pressure 107/74 111/70 Pulse Oximetry 96 01/27/25 07:30 01/27/25 07:31 01/27/25 07:45 Temperature Pulse Rate 140 H 136 H 145 H Respiratory Rate 28 H 29 H 24 H Blood Pressure 115/77 Pulse Oximetry 96 95 99 01/27/25 08:00 01/27/25 08:01 01/27/25 08:15 Temperature Pulse Rate 135 H 137 H 138 H Respiratory Rate 23 H 28 H 28 H Blood Pressure 121/84 Pulse Oximetry 99 96 99 01/27/25 08:30 01/27/25 08:45 01/27/25 09:00 Temperature Pulse Rate 136 H 138 H 140 H Respiratory Rate 24 H 24 H 27 H Blood Pressure Pulse Oximetry 98 97 01/27/25 09:01 01/27/25 09:15 01/27/25 09:30 Temperature Pulse Rate 139 H 140 H 140 H Respiratory Rate 27 H 22 H 24 H Blood Pressure 115/72 Pulse Oximetry 97 97 97 01/27/25 09:45 01/27/25 10:00 01/27/25 10:01 Temperature Pulse Rate 139 H 141 H 145 H Respiratory Rate 27 H 26 H 24 H Blood Pressure 96/53 L Pulse Oximetry 98 01/27/25 10:15 01/27/25 10:19 01/27/25 10:30 Temperature Pulse Rate 138 H 136 H 139 H Respiratory Rate 26 H 26 H 29 H Blood Pressure 105/76 Pulse Oximetry 97 98 97 01/27/25 10:45 01/27/25 11:00 01/27/25 11:01 Temperature Pulse Rate 135 H 137 H 136 H Respiratory Rate 24 H 22 H 22 H Blood Pressure 123/79 Pulse Oximetry 96 98 99 01/27/25 11:22 01/27/25 14:45 01/27/25 15:00 Temperature Pulse Rate 142 H 151 H 142 H Respiratory Rate 19 16 19 Blood Pressure 111/78 Pulse Oximetry 100 01/27/25 15:03 01/27/25 15:15 01/27/25 15:30 Temperature Pulse Rate Respiratory Rate Blood Pressure Pulse Oximetry 99 95 96 01/27/25 15:45 01/27/25 16:00 01/27/25 16:01 Temperature Pulse Rate Respiratory Rate Blood Pressure 112/72 Pulse Oximetry 97 96 96 01/27/25 16:15 01/27/25 16:30 01/27/25 16:45 Temperature Pulse Rate Respiratory Rate Blood Pressure Pulse Oximetry 97 96 97 01/27/25 17:00 01/27/25 17:01 01/27/25 17:15 Temperature Pulse Rate Respiratory Rate Blood Pressure 114/72 Pulse Oximetry 98 98 97 01/27/25 17:30 01/27/25 17:45 01/27/25 18:00 Temperature Pulse Rate 142 H Respiratory Rate 30 H Blood Pressure Pulse Oximetry 95 97 01/27/25 18:01 01/27/25 18:15 01/27/25 18:30 Temperature Pulse Rate 143 H 142 H 143 H Respiratory Rate 31 H 28 H 27 H Blood Pressure 106/59 L Pulse Oximetry 01/27/25 18:45 01/27/25 19:00 01/27/25 19:01 Temperature Pulse Rate 152 H 145 H 147 H Respiratory Rate 23 H 31 H 31 H Blood Pressure 94/66 L Pulse Oximetry 96 94 96 01/27/25 19:15 01/27/25 19:30 01/27/25 19:45 Temperature Pulse Rate 143 H 152 H 146 H Respiratory Rate 24 H 31 H 31 H Blood Pressure Pulse Oximetry 96 94 01/27/25 20:00 01/27/25 20:01 01/27/25 20:15 Temperature 100.6 F H Pulse Rate 144 H 144 H 144 H Respiratory Rate 36 H 36 H 26 H Blood Pressure 106/74 Pulse Oximetry 92 94 98 Exam Const: General: comfortable and no acute distress Other: , male, modestly ill-appearing HENMT: Face/Nose/Sinus: Normal nares present Mouth: Yes moist mucous membranes Eyes: General: appearance normal, both eyes and all related structures Pupils: Equal, round and reactive pupils present EOM: EOMs intact bilaterally Other: + scleral icterus Resp: Effort & Inspection: normal respiratory effort Auscultation: clear to auscultation bilaterally Cardio: Rate: tachycardic (140-150s) Rhythm: regular rhythm Other: No murmur or rub GI: Other: Abdomen distended, modestly soft, diffuse tenderness. Normoactive to hyperactive bowel sounds in all quadrants. Skin: General skin exam: normal color and no rashes or lesions noted Neuro: Speech: normal speech Motor exam (neuro): 5/5 motor strength present throughout Sensory Exam: normal sensation Other: A&Ox4, intermittent fine tremor to bilateral upper extremities. Skin dry. Denies hallucinations. Extrem: General: normal to inspection Psych: Mental Status: mental status grossly normal Affect: normal affect Other: Good insight and judgment, pleasant, denying hallucinations or anxiety. H&P: Results Labs Labs: Short CBC 01/27/25 Range/Units 20:10 WBC 13.9 H (4.5-10.0) K/mm3 Hgb 11.7 L D (14.0-18.0) g/dL Hct 32.9 L (42.0-52.0) % Plt Count 199 D (150-375) k/mm3 BMP 01/27/25 20:10 Sodium 127 L Potassium 2.9 L Chloride 97 L Carbon Dioxide 19 L BUN < 2 L Creatinine 0.60 L Glucose 125 H Calcium 7.2 L Liver Function 01/27/25 Range/Units 20:10 Total Bilirubin 15.9 H (0.2-1.3) mg/dL Direct Bilirubin 8.2 H (0-0.3) mg/dL AST 392 H (17-59) U/L ALT 73 H (6-50) U/L Alkaline Phosphatase 179 H (38-126) U/L Albumin 2.6 L (3.5-5.1) g/dL Assessment and Plan Assessment and plan (1) Sepsis: Qualifiers: Sepsis acute organ dysfunction status: with acute organ dysfunction Sepsis type: sepsis due to unspecified organism Severe sepsis acute organ dysfunction type: unspecified Severe sepsis shock status: without septic shock Qualified Code(s): A41.9 - Sepsis, unspecified organism; R65.20 - Severe sepsis without septic shock Code(s): A41.9 - Sepsis, unspecified organism Status: Acute Assessment and Plan: - meets SIRS criteria: HR greater than 100 and WBC greater than 12. Pressure has been on the low end of normal to mildly soft (lowest BP 94/66). No hypoxia. Now has temp of 100.6? F - lactic acid: 3.8-> 3.9-> 4.4 - lactic elevated, procalcitonin added - 30 mL/kg = 2.7L, given 2L in the ED on 01/26 and 1L on 01/27 - concern for spontaneous bacterial peritonitis, UA concerning for UTI - started on Ceftriaxone and Flagyl - blood cultures drawn on 01/26, follow - monitor hemodynamic stability Patient remains persistently tachycardic in the 140s to 150s despite 3L of fluid. Admission to the ICU with county assessor consulted. Pressure remains stable. (2) Alcoholic liver disease: Code(s): K70.9 - Alcoholic liver disease, unspecified Status: Acute Assessment and Plan: - labs: 01/26: Total bilirubin 18, direct bilirubin 8.7, AST 6.6, ALT 113 alk-phos 295, ammonia 21 01/27: Total bilirubin 15.9, direct bilirubin 8.2, AST 392, ALT 73, alk-phos 179, ammonia 70 - awaiting transfer to tertiary care center for hepatology - underwent paracentesis on 01/27, yielded 4 L of dark yellowish fluid. Gram stain showed rare white blood cells and no organism seen. Awaiting further studies. - given 20G of lactulose in the ED, schedule TID, trend ammonia - started on ceftriaxone on 01/26, additionally has concurrent UTI - albumin depleted, 25G x4 Q6H - GI consulted - monitor neuro status (3) Alcohol abuse: Code(s): F10.10 - Alcohol abuse, uncomplicated Status: Acute Assessment and Plan: - daily ETOH use: 9 double shots of hard alcohol daily. Has been drinking for the past 14 years. - last drink: 01/26 AM - ETOH on arrival on 01/26 was 275 - CIWA protocol in place Ativan PRN Librium prn seizure precautions neurochecks Q2H - antiemetics PRN - folic acid, multivitamin, and thiamine daily (4) Alcoholic pancreatitis: Qualifiers: Acute pancreatitis complication: unspecified Chronicity: acute Qualified Code(s): K85.20 - Alcohol induced acute pancreatitis without necrosis or infection Code(s): K85.20 - Alcohol induced acute pancreatitis without necrosis or infection Status: Acute Assessment and Plan: - lipase 532 upon admission - IV fluids - antiemetics and analgesics PRN - trend (5) UTI (urinary tract infection): Qualifiers: Hematuria presence: without hematuria Urinary tract infection type: acute cystitis Qualified Code(s): N30.00 - Acute cystitis without hematuria Code(s): N39.0 - Urinary tract infection, site not specified Status: Acute Assessment and Plan: - UA: Cloudy, 1+ protein, positive nitrates, 3+ bilirubin, 1+ leuk esterase with no epithelial cells and trace bacteria. - UC pending, obtained on 01/26 - no previous micro available for review - started on Ceftriaxone on 01/26 (6) Hypokalemia: Code(s): E87.6 - Hypokalemia Status: Acute Assessment and Plan: - K 2.9. Will replete with 40 KCL p.o. and IV. Recheck later this evening. - trend (7) Hyponatremia: Code(s): E87.1 - Hypo-osmolality and hyponatremia Status: Acute Assessment and Plan: - Na 131 -> 127 - check serum osmolality, urine osmolality, urine sodium, protein to creatinine ratio, urine creatinine - suspect hyponatremia secondary to alcoholism - monitor renal function and neurological status (8) Anemia: Qualifiers: Anemia type: unspecified type Qualified Code(s): D64.9 - Anemia, unspecified Code(s): D64.9 - Anemia, unspecified Status: Acute Assessment and Plan: - Hgb 15.2 -> 11.7 - check iron, TIBC, ferritin, B12, folic acid, and TSH - transfuse if <7 - trend H&H - suspect drop in hemoglobin secondary to IV fluids. May be superimposed upon chronic anemia, see workup. Plan Diet: Clear liquid GI Prophylaxis: Ppi IV b.i.d. DVT Prophylaxis: SCDs IV fluids:3L bolus -> D5NS 125 mL/hr Lines/Tubes: Peripheral IV Code Status: Full code Quality VTE Prophylaxis VTE prophylaxis: mechanical ordered Critical Care Time: I personally spent 35 minutes of direct patient care including (but not limited to) the physical examination, decision-making, bedside evaluation, review of medical records, review of labs and imaging, discussion with nursing staff and other providers for collaborative, critical care management of this patient. Hospitalist [facility] Advance Care Plan I have confirmed that the patient's Advanced Care Plan is present, code status is documented, or surrogate decision maker is listed in patient medical record.: Yes Medication Reconciliation I have utilized all available resources to obtain, update and review the patients current medications (includes all prescriptions, OTC, herbals, cannabis, and nutritional supplements).: Yes
[2025-01-27] MEDS: LACTULOSE 20 GM/30 ML UDC PO (20:57)
[2025-01-27] MEDS: POTASSIUM CHLORIDE 20 MEQ ER TABLET 40 MEQ PO (21:30)
[2025-01-27] MEDS: cefTRIAXone 1 GM in SODIUM CHLORIDE 0.9% IV 50 ML 100 ML IVPB (21:31)
[2025-01-27 22:16] LABS: Total Protein Urine Random 23 mg/dL; Ur Ttl Prot Creatinine Ratio 0.19 mg/mg (0-0.20)
[2025-01-27 22:32] LABS: MRSA (PCR) NOT DETECTED (NOT DETECTE)
[2025-01-27 22:45] LABS: Procalcitonin 0.8 ng/mL
[2025-01-28] VITALS (14 sets, daily range): BP systolic 109–136; BP diastolic 80–101; PULSE 137–150; RESP 25–38; TEMP 36.9–38.5; O2SAT 92–95
--- NOTE | 2025-01-28 | ECHO_ITS ---
Patient Info Name: Jaiden Urena Age: 34 years : 1990 Gender: Male Ht: 66 in Wt: 219 lbs BSA: 2.19 m2 HR: 136 bpm BP: 118 / 80 mmHg Heart Rhythm: Tachycardia Technical Quality: Good Exam Date: 01/28/2025 12:20 PM Patient Status: I Admit Date: 01/27/2025 Exam Type: CA echo dop color flow w con Complete two-dimensional, color flow and Doppler transthoracic echocardiogram is performed with contrast to opacify the left ventricle and to improve the deliniation of the left ventricle endocardial borders. Staff Referring Physician: Austin Santamaria MD Allergist/Immunologist Physician: Kristin Coronado Attending Provider: Hector Tyler Contrast/Agitated Saline Contrast/Ag. Saline: Definity Amount: 2.00 ml Summary 1. Left ventricular systolic function is normal, estimated at 30-35. 2. There is mildly increased left ventricular wall thickness. 3. The left ventricular diastolic function is abnormal. Left Ventricle Left ventricular chamber dimension is normal. Left ventricular systolic function is normal, estimated at 30-35. There is mildly increased left ventricular wall thickness. Left ventricular septal wall motion is normal. The left ventricular diastolic function is abnormal. Right Ventricle Right ventricular chamber dimension is normal. Right ventricular systolic function is normal. Left Atria Left atrial chamber dimension is normal. Right Atria Right atrial chamber dimension is normal. Aortic Valve The aortic valve is trileaflet. There is no aortic valve sclerosis. There is no aortic valve stenosis. There is no aortic valve regurgitation. Pulmonic Valve The pulmonic valve is normal. There is no pulmonic valve stenosis. There is no pulmonic regurgitation. Mitral Valve The mitral valve has normal leaflets. There is no mitral valve stenosis. There is no mitral valve regurgitation. Tricuspid Valve The tricuspid valve leaflets are normal. There is no significant tricuspid valve stenosis. There is no tricuspid valve regurgitation. Pericardium/Pleural The pericardium appears normal. There is no pericardial effusion. Inferior Vena Cava Normal inferior vena cava with >50% collapse upon inspiration consistent with normal right atrial pressure, 5 mmHg. Aorta The aortic root size at the sinus of Valsalva is normal. The prox ascending aorta size is normal. Left Ventricular Outflow Tract Name Value Normal LVOT 2D LVOT Diameter 2.2 cm LVOT Doppler LVOT Peak Velocity 123 cm/s LVOT Peak Gradient 6 mmHg LVOT Mean Gradient 3 mmHg LVOT VTI 20 cm LVOT Stroke Volume 74 ml LVOT CO 10.1 l/min LVOT CI 4.6 l/min/m2 Pulmonic Valve Name Value Normal RVOT Doppler RVOT Peak Velocity 102 cm/s RVOT Peak Gradient 4 mmHg PV Doppler PV Peak Velocity 124 cm/s PV Peak Gradient 6 mmHg Mitral Valve Name Value Normal MV Diastolic Function MV E Peak Velocity 114 cm/s MV A Peak Velocity 28 cm/s MV E/A 4.1 MV Decel Time (PW) 65 ms MV Annular TDI MV E/e' (Septal) 11.4 MV E/e' (Lateral) 4.3 MV E/e' (Average) 7.9 Tricuspid Valve Name Value Normal Estimated PAP/RSVP RA Pressure 5 mmHg <=5 Aortic Valve Name Value Normal AV Doppler AV Peak Velocity 138 cm/s AV Peak Gradient 8 mmHg AV Area (Cont Eq Nilay) 3.3 cm2 AV DI (Nilay) 0.89 AV Regurgitation 2D LVOT Area 3.7 cm2 Ventricles Name Value Normal LV Dimensions 2D/MM IVS Diastolic Thickness (2D) 0.9 cm 0.6-1.0 LVID Diastole (2D) 5.6 cm 4.2-5.8 LVIW Diastolic Thickness (2D) 1.4 cm 0.6-1.0 LVID Systole (2D) 4.0 cm 2.5-4.0 LVOT Diameter 2.2 cm LV Mass (2D Cubed) 266.20 g 88.00-224.00 LV Mass Index (2D Cubed) 121 g/m2 49-115 Relative Wall Thickness (2D) 0.51 <=0.42 LV Fractional Shortening/Ejection Fraction 2D/MM LV Fractional Shortening (2D) 28 % 25-43 LV EF (2D Teichholz) 54 % LV Diastolic Volume (4C MOD) 96 ml LV EF (4C MOD) 30 % LV Diastolic Volume (2C MOD) 92 ml LV EF (2C MOD) 30 % LV Diastolic Volume (BP MOD) 95 ml 62-150 LV Diastolic Volume Index (BP MOD) 43 ml/m2 34-74 LV Systolic Volume (BP MOD) 70 ml 21-61 LV Systolic Volume Index (BP MOD) 32 ml/m2 11-31 LV EF (BP MOD) 26 % 52-72 LV Diastolic Length (4C) 7.8 cm LV Systolic Length (4C) 7.0 cm LV Stroke Volume (4C MOD) 29 ml Atria Name Value Normal LA Dimensions LA Volume (4C A-L) 41 ml LA Volume (BP A-L) 42 ml RA Dimensions RA Systolic Major [place] Length (4C) 4.6 cm 2.1-2.7 RA Area (4C) 12.1 cm2 <=18.0 Report Signatures
[2025-01-28] MEDS: ALBUMIN HUMAN 25% 25 GM/100 ML 100 ML IVPB ×3 (00:32→12:06)
[2025-01-28] MEDS: chlordiazePOXIDE (*CRX) 25 MG CAPSULE PO ×3 (00:33→14:48)
[2025-01-28] MEDS: ONDANSETRON INJ 4 MG/2 ML VIAL IV PUSH ×2 (02:34→08:29)
[2025-01-28] MEDS: LORazepam INJ (*CRX) 2 MG/ML VIAL 1 MG IV PUSH (02:34)
[2025-01-28 05:23] LABS: Hematocrit 32.1 % (42.0-52.0); Hemoglobin 11.6 g/dL (14.0-18.0); Immature Granulocyte Percent A 1.2 % (0-0.5); Lymphocytes Absolute Auto 1.23 K/mm3 (0.9-3.2); Mean Corpuscular HGB Conc 36.1 g/dl (32-36); Mean Corpuscular Hemoglobin 33.5 pg (26-34); Mean Corpuscular Volume 92.8 fl (80-100); Nucleated Red Blood Cells Absolute Auto 0.020 K/mm3 (0.0-0.012); Nucleated Red Blood Cells Perc 0.1 % (0.0-0.2); Platelet Count Result 173 k/mm3 (150-375); Red Blood Count 3.46 M/mm3 (4.6-6.20); White Blood Count 14.7 K/mm3 (4.5-10.0)
[2025-01-28 05:33] LABS: Ammonia 24 umol/L (9-30)
[2025-01-28] MEDS: metroNIDAZOLE 500 MG/ISO 100ML 500 MG/100 ML BAG 100 MG IVPB (05:40)
[2025-01-28 05:52] LABS: Alanine Aminotransferase 65 U/L (6-50); Albumin Level 2.7 g/dL (3.5-5.1); Alkaline Phosphatase 168 U/L (38-126); Anion Gap 10 mmol/L (4-12); Aspartate Amino Transferase 327 U/L (17-59); Bilirubin,Total 17.7 mg/dL (0.2-1.3); Calcium 7.4 mg/dL (8.4-10.2); Carbon Dioxide 20 mmol/L (22-30); Chloride 102 mmol/L (98-107); Estimated CRCL calculation 163 ml/min; Estimated Glomerular Filt Rate > 60; Glucose 114 mg/dL (65-110); Lipase 826 U/L (23-300); Magnesium 1.4 mg/dL (1.6-2.3); Sodium 132 mmol/L (137-145); Total Protein 6.0 g/dL (6.3-8.2)
[2025-01-28 06:00] LABS: Blood Urea Nitrogen < 2 mg/dL (9-20)
[2025-01-28 06:04] LABS: Potassium 2.8 mmol/L (3.4-5.0)
[2025-01-28] MEDS: DEXTROSE 5%/0.9% SOD CHL 1,000 ML 125 ML IV CONT (06:57)
[2025-01-28] MEDS: POTASSIUM CHLORIDE INJ 40 MEQ in SODIUM CHLORIDE 0.9% IV 500 ML 130 MEQ IVPB (07:30)
[2025-01-28] MEDS: LACTULOSE 20 GM/30 ML UDC PO (08:51)
[2025-01-28] MEDS: PANTOPRAZOLE SODIUM IV 40 MG VIAL IV PUSH ×2 (08:51→17:54)
[2025-01-28] MEDS: THERAPEUTIC MULTIVITAMINS/MINERALS TAB (*BKC) 1 TABLET PO (08:51)
[2025-01-28] MEDS: THIAMINE HCL 200 MG/2 ML VIAL 100 MG IV PUSH (08:52)
[2025-01-28] MEDS: ACETAMINOPHEN 325 MG TABLET 650 MG (08:53)
[2025-01-28] MEDS: CALCIUM GLUC 2,000 MG/NS 100ML 2,000 MG/100 ML BAG 100 MG IVPB (09:03)
[2025-01-28] MEDS: POTASSIUM CHLORIDE 20 MEQ PACKET (FOR LIQUID) 40 MEQ PO (09:09)
[2025-01-28] MEDS: MAGNESIUM SULF 2 GM/WATER 50ML 2 GM/50 ML BAG IVPB (09:18)
--- NOTE | 2025-01-28 09:25 | ADMGEN ---
This patient, Jaiden Urena, was admitted to [facility]- on 01/27/25 at 2230. Patient/family oriented to hospital policies and general routines including ID bracelet, bed and alarms, visiting hours, pain management, procedures, bathroom and other care routines, personal items, smoking policy, room service/diet, and visiting hours. Information on how to activate the Rapid Response Team has been discussed. Patient/Family are encouraged to report perceived risks to care and to ask questions if they do not understand what they are told or what they should do.
--- NOTE | 2025-01-28 09:27 | WPDCNINT ---
Assessment and Plan Assessment and plan (1) Alcoholic hepatitis: Code(s): K70.10 - Alcoholic hepatitis without ascites Status: Acute Assessment and Plan: Patient presented to [facility] he has alcohol liver disease which is chronic but he has been drinking heavily many months. He has AST ALT Monitor liver enzymes which are improving CT abdomen pelvis showed IMPRESSION: 1. Fatty infiltration of the liver. 2: Moderate ascites. 3: Small pleural effusions. His discriminant factor is 57. He is already on treatment for UTI-see below Will start prednisone 40 mg p.o. q.day I would also start N-acetylcysteine infusion as per recommendation Patient weight is transferred to see [facility] or [facility] for hepatology management Consult GI (2) Alcoholic liver disease: Code(s): K70.9 - Alcoholic liver disease, unspecified Status: Acute Assessment and Plan: Vitamin K for coagulopathy Patient had elevated ammonia level lactulose. I will continue lactulose but at a lower dose (3) Sepsis: Qualifiers: Sepsis type: sepsis due to unspecified organism Sepsis acute organ dysfunction status: with acute organ dysfunction Severe sepsis acute organ dysfunction type: unspecified Severe sepsis shock status: without septic shock Qualified Code(s): A41.9 - Sepsis, unspecified organism; R65.20 - Severe sepsis without septic shock Code(s): A41.9 - Sepsis, unspecified organism Status: Acute Assessment and Plan: Patient meets criteria with sepsis although this could be mostly a SIRS phenomenon due pancreatitis and alcohol liver disease He does have evidence of UTI and blood and urine cultures are pending He there was a concern for SBP but his pleural fluid does not appear to be infected. Patient also does not have any tenderness on exam He is on Rocephin which will be continued Elevated lactic acid level could be secondary to liver disease Continue IV fluids (4) Alcohol abuse: Code(s): F10.10 - Alcohol abuse, uncomplicated Status: Acute Assessment and Plan: Patient has history of alcohol abuse and presented intoxicated but now he is at risk of alcohol withdrawal. He was started on low-dose Librium. I have continue that and monitor patient for signs or symptoms of withdrawal P.r.n. Ativan is ordered IV fluids (5) Alcoholic pancreatitis: Qualifiers: Acute pancreatitis complication: unspecified Chronicity: acute Qualified Code(s): K85.20 - Alcohol induced acute pancreatitis without necrosis or infection Code(s): K85.20 - Alcohol induced acute pancreatitis without necrosis or infection Status: Acute Assessment and Plan: Patient presented with elevated lipase likely secondary to alcoholic pancreatitis CT scan the abdomen. Does not show stone obstruction or inflammatory changes the pancreas IV fluids and albumin (6) Abdominal ascites: Code(s): R18.8 - Other ascites Status: Acute Assessment and Plan: Patient has significant amount of ascites. He is status post paracentesis and 4 L fluid was removed. If patient is not transferred today I will request another paracentesis tomorrow as he has additional fluid (7) UTI (urinary tract infection): Qualifiers: Urinary tract infection type: acute cystitis Hematuria presence: without hematuria Qualified Code(s): N30.00 - Acute cystitis without hematuria Code(s): N39.0 - Urinary tract infection, site not specified Status: Acute Assessment and Plan: See above (8) Electrolyte abnormality: Code(s): E87.8 - Other disorders of electrolyte and fluid balance, not elsewhere classified Status: Acute Assessment and Plan: Potassium phosphate magnesium calcium replacement ordered will recheck labs later today (9) Coagulopathy: Code(s): D68.9 - Coagulation defect, unspecified Status: Acute Assessment and Plan: INR 2.1 likely secondary to alcoholic liver disease. 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 He is not and does not have children Total Critical Care Time - 30 minutes Due to a high probability of clinically significant, life threatening deterioration, the patient required my highest level of preparedness to intervene emergently and I personally spent this critical care time directly and personally managing the patient. This critical care time included obtaining a history; examining the patient; pulse oximetry; ordering and review of studies; arranging urgent treatment with development of a management plan; evaluation of patient's response to treatment; frequent reassessment; and discussions with other providers. It was exclusive of separately billable procedures and treating other patients and teaching time. Please see Assessment and Plan section and the rest of the note for further information on patient assessment and treatment [employer] Webmaster Consult Note Consult date: 01/28/25 Reason for consult: Alcohol intoxication, hyperbilirubinemia, pancreatitis HPI: Jaiden Urena is a 34 year old male PMH of erosive esophagitis, heavy alcohol abuse leading to alcoholic liver disease, generalized anxiety disorder, depression, pancreatitis, and previous suicide attempt presents here with weakness and uncontrolled alcoholism ER on 01/26. Patient states that he has been abusing alcohol off and on he has a intermittently stopped drinking but most recently in July started drinking again heavily. He did to a detox program in [place] early this year but since then he has been drinking heavily for last many months. He states he started having abdominal pain which was diffuse 10 out 10 with no radiation. No fever chest pain shortness a breath, he did had nausea he also had some vomiting. He had some loose stools. He denies any hematochezia melena or hematemesis. He denies any dysuria. Other systems reviewed were negative Workup in the ER showed WBC 13.9, hemoglobin 15.2 (12.6 in 2020), platelet count of 474, INR 1.8 Ancef, sodium 131, creatinine 0.75 and a GFR >60, calcium 7.5 in the setting of an albumin of 3.1, total bilirubin 18.0, direct bilirubin 8.7, AST 6.6, ALT 113, alk-phos 295, initial ammonia 21 (repeat 70), lipase 532, and lactic 3.8. CT of the abdomen/pelvis from 01/26 showed fatty infiltration of the liver, moderate ascites, and small bilateral pleural effusions. Patient underwent a paracentesis on 01/27 which yielded 4000 mL of dark yellowish fluid - fluid studies pending. G stain showed rare white blood cells with no organisms. Initially plan was made to transfer patient to [facility] or [facility] for hepatology service. And was on transfer will wait list. Patient was unable a bed for more than 24 hours. During this time patient was being managed in the ER. I was called yesterday evening for admission to ICU while patient awaits transfer. This morning when I evaluated the patient he states he feels overall better. He does have mild abdominal pain but his severe abdominal pain that he came in with has resolved. He states the paracentesis helped. He still has intermittent nausea. He denies any other complaint. All other systems negative Review of Systems Review of Systems: All systems reviewed & are unremarkable except as noted in HPI and below (HPI) [facility] Past Medical History Medical History Anemia Esophageal ulcer Generalized anxiety disorder Depression Erosive esophagitis Alcoholic liver disease History of suicide attempt 2 times as a teenager he cut his wrist 1 time and overdose on pills a 2nd time Alcohol abuse Hematemesis Surgical History Surgical History History of facial surgery Patient reports metal plate placed in his face after a facial fracture - 2012. Family History Family History Father Diabetes mellitus Grandparent Diabetes mellitus Cerebrovascular accident Mother Alcoholism Diabetes mellitus Social History Social History Social History: Patient lives at home in [place]. Was drinking more than 1 pint of vodka daily. Works for [employer] in [place]. Denies tobacco or other substance use at present. PCP: Dr Bhatt Code: Full Code status. Designates his aunt, Joel, to be his surrogate decision maker Smoking status: Never smoker Second hand tobacco smoke exposure: Yes Alcohol intake: current Drinks per week: 35 Substance use: never Substance use type: does not use Other substance usage details: 3 drinks a day work day, all day on weekend-vodka and water Last use: 01/24/21 Lack of Transportation: YES Lack of Food: Sometimes True Current Housing: I Have Housing Concerned About Future Housing: Decline to Answer Difficulty Paying Gas/Electric Bills: Decline to Answer Difficulty Paying for Meds: Decline to Answer Currently Unemployed: Decline to Answer Education: High School Diploma/GED Difficulty w/ Childcare or Family Care: Decline to Answer Living arrangements: with family Gender identity (if verbalized by the patient): Male Spiritual care concerns: No Meds Home Medications and Allergies Home Medications ?Medication ?Instructions ?Recorded ?Confirmed ?Type folic acid 1 mg tablet 1 mg PO DAILY #30 tabs 07/24/20 01/27/25 Rx thiamine mononitrate (vit B1) 100 100 mg PO DAILY 10/12/20 01/27/25 History mg tablet cholecalciferol (vitamin D3) 1,250 1,250 mcg PO WEEKLY #14 caps 03/03/21 01/27/25 Rx mcg (50,000 unit) capsule buspirone 5 mg tablet See Rx Instructions .Route 04/04/21 01/27/25 Rx .COMPLEX #270 tabs pantoprazole 40 mg tablet,delayed See Rx Instructions .Route 07/03/21 01/27/25 Rx release .COMPLEX #180 tabs losartan 25 mg tablet 25 mg PO DAILY #30 tabs 07/06/21 01/27/25 Rx Allergies Allergy/AdvReac Type Severity Reaction Status Date / Time No Known Allergies Allergy Verified 01/26/25 18:40 Vital Signs Vital Signs - 24 hr 01/27/25 09:30 01/27/25 09:45 01/27/25 10:00 Temperature Pulse Rate 140 H 139 H 141 H Respiratory Rate 24 H 27 H 26 H Blood Pressure Pulse Oximetry 97 98 Oxygen Delivery 01/27/25 10:01 01/27/25 10:15 01/27/25 10:19 Temperature Pulse Rate 145 H 138 H 136 H Respiratory Rate 24 H 26 H 26 H Blood Pressure 96/53 L 105/76 Pulse Oximetry 97 98 Oxygen Delivery 01/27/25 10:30 01/27/25 10:45 01/27/25 11:00 Temperature Pulse Rate 139 H 135 H 137 H Respiratory Rate 29 H 24 H 22 H Blood Pressure 123/79 Pulse Oximetry 97 96 98 Oxygen Delivery 01/27/25 11:01 01/27/25 11:22 01/27/25 14:45 Temperature Pulse Rate 136 H 142 H 151 H Respiratory Rate 22 H 19 16 Blood Pressure Pulse Oximetry 99 100 Oxygen Delivery 01/27/25 15:00 01/27/25 15:03 01/27/25 15:15 Temperature Pulse Rate 142 H Respiratory Rate 19 Blood Pressure 111/78 Pulse Oximetry 99 95 Oxygen Delivery 01/27/25 15:30 01/27/25 15:45 01/27/25 16:00 Temperature Pulse Rate Respiratory Rate Blood Pressure 112/72 Pulse Oximetry 96 97 96 Oxygen Delivery 01/27/25 16:01 01/27/25 16:15 01/27/25 16:30 Temperature Pulse Rate Respiratory Rate Blood Pressure Pulse Oximetry 96 97 96 Oxygen Delivery 01/27/25 16:45 01/27/25 17:00 01/27/25 17:01 Temperature Pulse Rate Respiratory Rate Blood Pressure 114/72 Pulse Oximetry 97 98 98 Oxygen Delivery 01/27/25 17:15 01/27/25 17:30 01/27/25 17:45 Temperature Pulse Rate Respiratory Rate Blood Pressure Pulse Oximetry 97 95 97 Oxygen Delivery 01/27/25 18:00 01/27/25 18:01 01/27/25 18:15 Temperature Pulse Rate 142 H 143 H 142 H Respiratory Rate 30 H 31 H 28 H Blood Pressure 106/59 L Pulse Oximetry Oxygen Delivery 01/27/25 18:30 01/27/25 18:45 01/27/25 19:00 Temperature Pulse Rate 143 H 152 H 145 H Respiratory Rate 27 H 23 H 31 H Blood Pressure 94/66 L Pulse Oximetry 96 94 Oxygen Delivery 01/27/25 19:01 01/27/25 19:15 01/27/25 19:30 Temperature Pulse Rate 147 H 143 H 152 H Respiratory Rate 31 H 24 H 31 H Blood Pressure Pulse Oximetry 96 96 Oxygen Delivery 01/27/25 19:45 01/27/25 20:00 01/27/25 20:01 Temperature Pulse Rate 146 H 144 H 144 H Respiratory Rate 31 H 36 H 36 H Blood Pressure 106/74 Pulse Oximetry 94 92 94 Oxygen Delivery 01/27/25 20:15 01/27/25 20:30 01/27/25 20:45 Temperature 38.1 C H Pulse Rate 144 H 143 H 141 H Respiratory Rate 26 H 29 H 36 H Blood Pressure Pulse Oximetry 98 98 96 Oxygen Delivery 01/27/25 21:00 01/27/25 21:06 01/27/25 21:15 Temperature Pulse Rate 147 H Respiratory Rate 28 H Blood Pressure 125/85 Pulse Oximetry 97 96 Oxygen Delivery 01/27/25 21:30 01/27/25 21:45 01/27/25 22:30 Temperature 38.2 C H Pulse Rate 149 H 148 H 145 H Respiratory Rate 29 H 31 H 22 H Blood Pressure 125/85 109/78 Pulse Oximetry 99 97 93 Oxygen Delivery 01/28/25 00:00 01/28/25 00:00 01/28/25 00:00 Temperature Pulse Rate 141 H 141 H Respiratory Rate 27 H Blood Pressure 109/82 Pulse Oximetry 94 Oxygen Delivery Room Air 01/28/25 00:04 01/28/25 02:00 01/28/25 02:00 Temperature 38.1 C H Pulse Rate 141 H 145 H Respiratory Rate 27 H Blood Pressure 109/82 126/83 Pulse Oximetry 94 Oxygen Delivery 01/28/25 03:29 01/28/25 03:31 01/28/25 03:31 Temperature Pulse Rate 143 H 145 H Respiratory Rate 27 H Blood Pressure 126/83 Pulse Oximetry 94 Oxygen Delivery Room Air 01/28/25 04:00 01/28/25 06:00 01/28/25 08:00 Temperature 38.2 C H Pulse Rate 146 H 150 H Respiratory Rate 28 H Blood Pressure 136/95 H 118/80 Pulse Oximetry 92 Oxygen Delivery 01/28/25 08:00 01/28/25 08:00 01/28/25 08:00 Temperature 38.5 C H Pulse Rate 141 H 141 H 141 H Respiratory Rate 25 H 25 H Blood Pressure 118/80 Pulse Oximetry 95 95 Oxygen Delivery Room Air 01/28/25 08:53 Temperature 38.5 C H Pulse Rate Respiratory Rate Blood Pressure Pulse Oximetry Oxygen Delivery Exam Narrative: General: Pt is alert awake and in NAD. He appears older than his age Lungs/Chest: Trachea central Clear BS B/L, No crackles or wheezing. Cardiac: RRR. Normal S1 S2. No murmurs Circulation: Pedal pulses are intact and symmetrical. Abdomen: abdomen is distended. Patient has fluid thrill. Soft nontender bowel sounds are decreased but present Extremities: No clubbing, cyanosis or edema. Warm : Daniels in place Neurologic: Follows commands. Moves all 4 extremities PERRL AO x3, no tremors Skin: Some petechiae present, several areas of tattoo all over his body Results Labs 01/28/25 05:16 01/28/25 05:16 Labs: Impressions Paracentesis Ultrasound 01/27/25 14:19 IMPRESSION: 1. Successful ultrasound-guided paracentesis yielding 4000 mL of dark yellowish fluid. Chest X-Ray 01/27/25 21:54 IMPRESSION: 1: NO ACUTE CARDIOPULMONARY DISEASE. Short CBC 01/27/25 01/28/25 Range/Units 20:10 05:16 WBC 13.9 H 14.7 H (4.5-10.0) K/mm3 Hgb 11.7 L D 11.6 L (14.0-18.0) g/dL Hct 32.9 L 32.1 L (42.0-52.0) % Plt Count 199 D 173 (150-375) k/mm3 BMP 01/27/25 01/28/25 20:10 05:16 Sodium 127 L 132 L Potassium 2.9 L 2.8 L* Chloride 97 L 102 Carbon Dioxide 19 L 20 L BUN < 2 L < 2 L Creatinine 0.60 L 0.60 L Glucose 125 H 114 H Calcium 7.2 L 7.4 L Liver Function 01/27/25 01/28/25 Range/Units 20:10 05:16 Total Bilirubin 15.9 H 17.7 H (0.2-1.3) mg/dL Direct Bilirubin 8.2 H (0-0.3) mg/dL AST 392 H 327 H (17-59) U/L ALT 73 H 65 H (6-50) U/L Alkaline Phosphatase 179 H 168 H (38-126) U/L Albumin 2.6 L 2.7 L (3.5-5.1) g/dL Imaging Radiologist's impression: CT abdomen pelvis IMPRESSION: 1. Fatty infiltration of the liver. 2: Moderate ascites. 3: Small pleural effusions. Quality VTE Prophylaxis VTE prophylaxis: mechanical ordered Hospitalist MIPS Advance Care Plan I have confirmed that the patient's Advanced Care Plan is present, code status is documented, or surrogate decision maker is listed in patient medical record.: Yes Medication Reconciliation I have utilized all available resources to obtain, update and review the patients current medications (includes all prescriptions, OTC, herbals, cannabis, and nutritional supplements).: Yes
[2025-01-28] MEDS: ACETYLCYSTEINE IVPB ×2 (09:34→14:48)
[2025-01-28] MEDS: WATER IVPB (09:34)
[2025-01-28] MEDS: DEXTROSE 5% IVPB ×2 (09:34→14:48)
[2025-01-28] MEDS: PHYTONADIONE INJ 10 MG/ML AMP IM (09:52)
[2025-01-28] MEDS: ACETYLCYSTEINE IV 5,000 MG in DEXTROSE 5% IN WATER 500 ML 131.25 MG IVPB (10:09)
[2025-01-28] MEDS: FOLIC ACID 1 MG/0.2 ML INJ IV PUSH (10:24)
[2025-01-28] MEDS: LACTATED RINGERS 1,000 ML 999 ML IV CONT (10:25)
[2025-01-28] MEDS: DEXTROSE 5%/LACTATED RINGERS 1,000 ML 100 ML IV CONT (11:09)
[2025-01-28] MEDS: POTASSIUM PHOS,M-BASIC-D-BASIC 20 MMOL in SODIUM CHLORIDE 0.9% IV 250 ML 64.17 MMOL IVPB (11:09)
[2025-01-28] MEDS: LORazepam (*CRX) 1 MG TABLET PO (11:17)
[2025-01-28] MEDS: METOCLOPRAMIDE HCL INJ 10 MG/2 ML VIAL IV PUSH (12:44)
[2025-01-28] MEDS: PERFLUTREN LIPID MICROSPHERES 1.5 ML VIAL DILUTED TO 10 ML TOTAL VOLUME IV PUSH (13:04)
--- NOTE | 2025-01-28 13:04 | IVDEFINITY ---
Prior to administration of IV Definity the patient was educated on the risks and benefits of the imaging enhancing agent including potential adverse side effects. The patient verbalized understanding. Allergies were verified. No exclusion criteria were identified and at least one of the following inclusion criteria were met: 1) physician request, 2) patient technically difficult to image (per the [place] [employer] guidelines of two or more segments not discernable within the apical view), or 3) questionable left ventricular function. ?
[2025-01-28 16:08] LABS: Glucose, Body Fluid 113 mg/dL (.); LD, Body Fluid 95 IU/L (.)
--- NOTE | 2025-01-28 17:00 | P.CONGI_ITS ---
Assessment and Plan Assessment and plan (1) Alcoholic hepatitis: Code(s): K70.10 - Alcoholic hepatitis without ascites Status: Acute Assessment and Plan: severe alcoholic hepatitis DF 57, started on steroids ascitic fluid negative for SBP prognosis is guarged he is going to manufacturing development engineer service at [facility] today (2) Coagulopathy: Code(s): D68.9 - Coagulation defect, unspecified Status: Acute Assessment and Plan: from liver disease vit K (3) Abdominal ascites: Code(s): R18.8 - Other ascites Status: Acute Assessment and Plan: s/p paracentesis no sbp but covered empirically on abx for now (4) Alcoholic pancreatitis: Qualifiers: Acute pancreatitis complication: unspecified Chronicity: acute Q ualified Code(s): K85.20 - Alcohol induced acute pancreatitis without necrosis or infection Code(s): K85.20 - Alcohol induced acute pancreatitis without necrosis or infection Status: Acute (5) Hypokalemia: Code(s): E87.6 - Hypokalemia Status: Acute Assessment and Plan: repleting (6) Sepsis: Qualifiers: Sepsis type: sepsis due to unspecified organism Sepsis acute organ dysfunction status: with acute organ dysfunction Severe sepsis acute organ dysfunction type: unspecified Severe sepsis shock status: without septic shock Qualified Code(s): A41.9 - Sepsis, unspecified organism; R65.20 - Severe sepsis without septic shock Code(s): A41.9 - Sepsis, unspecified organism Status: Acute (7) Leukocytosis: Code(s): D72.829 - Elevated white blood cell count, unspecified Status: Acute GI Consult Note Consult date/time: 01/28/25 17:00 Reason for consult: alcoholic hepatitis HPI: Jaiden Urena is a 34 year old male with history of erosive esophagitis, heavy alcohol abuse leading to alcoholic liver disease, generalized anxiety disorder, depression, pancreatitis, and previous suicide attempt presents here with weakness and uncontrolled alcoholism ER on 01/26, initially he was supposed to be transferred to [facility] but awaiting on bed. Briefly stopped drinking but again since July started drinking again heavily. He did to a detox program in [place] early this year Here with more abdominal pain which was diffuse 10 out 10 with no radiation, also increase abdominal girth. ER labs WBC 13.9, hemoglobin 15.2 (12.6 in 2020), platelet count of 474, INR 1.8 sodium 131, creatinine 0.75, albumin of 3.1, total bilirubin 18.0,alk-phos 295, initial ammonia 21, lipase 532, and lactic 3.8. CT of the abdomen/pelvis from 01/26 showed fatty infiltration of the liver, moderate ascites, and small bilateral pleural effusions. Patient underwent a paracentesis on 01/27 which yielded 4000 mL of dark yellowish fluid without SBP, started on antibiotic empirically, also given NAC by manufacturing development engineer recommendation but not use of recent acetaminophen. Finally [facility] called back saying that will take patient this evening. Review of Systems 2 Constitutional: Constitutional: Reports weakness Eyes: Eyes: Denies blurry vision ENT: Reports Normal hearing present Cardiovascular: Cardiovascular: Denies chest pain Respiratory: Respiratory: Denies cough Gastrointestinal: Gastrointestinal: Reports abdominal pain and Reports nausea Genitourinary: Comments: dark urine Musculoskeletal: Musculoskeletal: Denies back pain Integumentary/Breasts: Comments: icteric Neurologic: Denies Abnormal speech present Psychiatric: Psychiatric: Reports anxiety [facility] Past Medical History Medical History (Updated 01/28/25 @ 17:05 by Lake Bauer MD) Leukocytosis Anemia Esophageal ulcer Generalized anxiety disorder Depression Erosive esophagitis Alcoholic liver disease History of suicide attempt 2 times as a teenager he cut his wrist 1 time and overdose on pills a 2nd time Alcohol abuse Hematemesis Surgical History Surgical History History of facial surgery Patient reports metal plate placed in his face after a facial fracture - 2012. Family History Family History Father Diabetes mellitus Grandparent Diabetes mellitus Cerebrovascular accident Mother Alcoholism Diabetes mellitus Social History Social History Social History: Patient lives at home in [place]. Was drinking more than 1 pint of vodka daily. Works for [employer] in [employer]. Denies tobacco or other substance use at present. PCP: Dr Bhatt Code: Full Code status. Designates his aunt, Joel, to be his surrogate decision maker Smoking status: Never smoker Second hand tobacco smoke exposure: Yes Alcohol intake: current Drinks per week: 35 Substance use: never Substance use type: does not use Other substance usage details: 3 drinks a day work day, all day on weekend- vodka and water Last use: 01/24/21 Lack of Transportation: YES Lack of Food: Sometimes True Current Housing: I Have Housing Concerned About Future Housing: Decline to Answer Difficulty Paying Gas/Electric Bills: Decline to Answer Difficulty Paying for Meds: Decline to Answer Currently Unemployed: Decline to Answer Education: High School Diploma/GED Difficulty w/ Childcare or Family Care: Decline to Answer Living arrangements: with family Gender identity (if verbalized by the patient): Male Spiritual care concerns: No Meds Home Medications and Allergies Home Medications ?Medication ?Instructions ?Recorded ?Confirmed ?Type folic acid 1 mg tablet 1 mg PO DAILY #30 tabs 07/2401/27/25 Rx thiamine mononitrate (vit B1) 100 100 mg PO DAILY 10/2801/27/25 History mg tablet cholecalciferol (vitamin D3) 1,250 1,250 mcg PO WEEKLY #14 caps 03/03/21 01/27/25 Rx mcg (50,000 unit) capsule buspirone 5 mg tablet See Rx Instructions .Route 1 01/27/25 Rx .COMPLEX #270 tabs pantoprazole 40 mg tablet,delayed See Rx Instructions .Route 07/03/21 01/27/25 Rx release .COMPLEX #180 tabs losartan 25 mg tablet 25 mg PO DAILY #30 tabs /12/2901/27/25 Rx Allergies Allergy/AdvReac Type Severity Reaction Status Date / Time No Known Allergies Allergy Verified 01/26/25 18:40 Vital Signs Vital Signs - 24 hr 01/27/25 17:01 01/27/25 17:15 01/27/25 17:30 Temperature Pulse Rate Respiratory Rate Blood Pressure Pulse Oximetry 98 97 95 Oxygen Delivery 01/27/25 17:45 01/27/25 18:00 01/27/25 18:01 Temperature Pulse Rate 142 H 143 H Respiratory Rate 30 H 31 H Blood Pressure 106/59 L Pulse Oximetry 97 Oxygen Delivery 01/27/25 18:15 01/27/25 18:30 01/27/25 18:45 Temperature Pulse Rate 142 H 143 H 152 H Respiratory Rate 28 H 27 H 23 H Blood Pressure Pulse Oximetry 96 Oxygen Delivery 01/27/25 19:00 01/27/25 19:01 01/27/25 19:15 Temperature Pulse Rate 145 H 147 H 143 H Respiratory Rate 31 H 31 H 24 H Blood Pressure 94/66 L Pulse Oximetry 94 96 96 Oxygen Delivery 01/27/25 19:30 01/27/25 19:45 01/27/25 20:00 Temperature Pulse Rate 152 H 146 H 144 H Respiratory Rate 31 H 31 H 36 H Blood Pressure 106/74 Pulse Oximetry 94 92 Oxygen Delivery 01/27/25 20:01 01/27/25 20:15 01/27/25 20:30 Temperature 100.6 F H Pulse Rate 144 H 144 H 143 H Respiratory Rate 36 H 26 H 29 H Blood Pressure Pulse Oximetry 94 98 98 Oxygen Delivery 01/27/25 20:45 01/27/25 21:00 01/27/25 21:06 Temperature Pulse Rate 141 H Respiratory Rate 36 H Blood Pressure 125/85 Pulse Oximetry 96 97 Oxygen Delivery 01/27/25 21:15 01/27/25 21:30 01/27/25 21:45 Temperature Pulse Rate 147 H 149 H 148 H Respiratory Rate 28 H 29 H 31 H Blood Pressure 125/85 Pulse Oximetry 96 99 97 Oxygen Delivery 01/27/25 22:30 01/28/25 00:00 01/28/25 00:00 Temperature 100.8 F H Pulse Rate 145 H 141 H Respiratory Rate 22 H Blood Pressure 109/78 109/82 Pulse Oximetry 93 Oxygen Delivery 01/28/25 00:00 01/28/25 00:04 01/28/25 02:00 Temperature 100.6 F H Pulse Rate 141 H 141 H 145 H Respiratory Rate 27 H 27 H Blood Pressure 109/82 Pulse Oximetry 94 94 Oxygen Delivery Room Air 01/28/25 02:00 01/28/25 03:29 01/28/25 03:31 Temperature Pulse Rate 143 H Respiratory Rate 27 H Blood Pressure 126/83 126/83 Pulse Oximetry 94 Oxygen Delivery Room Air 01/28/25 03:31 01/28/25 04:00 01/28/25 06:00 Temperature 100.8 F H Pulse Rate 145 H 146 H 150 H Respiratory Rate 28 H Blood Pressure 136/95 H Pulse Oximetry 92 Oxygen Delivery 01/28/25 08:00 01/28/25 08:00 01/28/25 08:00 Temperature Pulse Rate 141 H 141 H Respiratory Rate 25 H Blood Pressure 118/80 Pulse Oximetry 95 Oxygen Delivery Room Air 01/28/25 08:00 01/28/25 08:53 01/28/25 09:53 Temperature 101.3 F H 101.3 F H 98.5 F Pulse Rate 141 H Respiratory Rate 25 H Blood Pressure 118/80 Pulse Oximetry 95 Oxygen Delivery 01/28/25 10:00 01/28/25 12:00 01/28/25 12:00 Temperature Pulse Rate 138 H 144 H Respiratory Rate 25 H Blood Pressure 131/94 H Pulse Oximetry 95 Oxygen Delivery Room Air 01/28/25 12:00 01/28/25 12:00 01/28/25 14:00 Temperature 98.5 F Pulse Rate 144 H 144 H 144 H Respiratory Rate 27 H Blood Pressure 131/94 H Pulse Oximetry 95 Oxygen Delivery 01/28/25 14:00 Temperature Pulse Rate 144 H Respiratory Rate 28 H Blood Pressure 129/101 H Pulse Oximetry Oxygen Delivery Exam 2 Narrative: General: Pt is alert awake and in NAD. He appears older than his age neck: supple heent: icteric sclerae Lungs/Chest: Trachea central Clear BS B/L, No crackles or wheezing. Cardiac: RRR. Normal S1 S2. No murmurs Circulation: Pedal pulses are intact and symmetrical. Abdomen: abdomen is distended. + fluid wave c/w ascites Extremities: No clubbing, cyanosis or edema. Warm : Daniels in place Neurologic: Follows commands. Moves all 4 extremities PERRL AO x3, no tremors Skin: Some petechiae present, several areas of tattoo all over his body Results Labs 01/28/25 05:16 01/28/25 05:16 Labs: Short CBC 01/27/25 01/28/25 Range/Units 20:10 05:16 WBC 13.9 H 14.7 H (4.5-10.0) K/mm3 Hgb 11.7 L D 11.6 L (14.0-18.0) g/dL Hct 32.9 L 32.1 L (42.0-52.0) % Plt Count 199 D 173 (150-375) k/mm3 BMP 01/27/25 01/28/25 20:10 05:16 Sodium 127 L 132 L Potassium 2.9 L 2.8 L* Chloride 97 L 102 Carbon Dioxide 19 L 20 L BUN < 2 L < 2 L Creatinine 0.60 L 0.60 L Glucose 125 H 114 H Calcium 7.2 L 7.4 L Liver Function 01/27/25 01/28/25 Range/Units 20:10 05:16 Total Bilirubin 15.9 H 17.7 H (0.2-1.3) mg/dL Direct Bilirubin 8.2 H (0-0.3) mg/dL AST 392 H 327 H (17-59) U/L ALT 73 H 65 H (6-50) U/L Alkaline Phosphatase 179 H 168 H (38-126) U/L Albumin 2.6 L 2.7 L (3.5-5.1) g/dL
--- NOTE | 2025-01-30 10:18 | P.TS_ITS ---
Transfer Discharge Sum: Prov Provider Date of admission: 01/27/25 21:43 Primary care physician: Sarai Napoles Admitting clinician: Hector Tyler MD Consults: 01/27/25 20:33 Consult to Physician Routine Comment: Consulting Provider: Lake Bauer Reason for consultation: Liver failure, ascites, hx of of alcohol abuse Has provider been notified: Yes Consult to Physician Routine Comment: Consulting Provider: Austni Santamaria Reason for consultation: ETOH withdrawal Has provider been notified: Yes Attending physician on discharge: Austin Santamaria Discharging clinician: Austin Santamaria Receiving physician/facility: [facility] DS: Admitting Diagnosis Discharge Date 01/28/25 Admitting Diagnosis Alcoholic hepatitis DS: Discharge Diagnosis Discharge Diagnosis (1) Alcoholic hepatitis: Code(s): K70.10 - Alcoholic hepatitis without ascites Status: Acute (2) Alcoholic liver disease: Code(s): K70.9 - Alcoholic liver disease, unspecified Status: Acute (3) Sepsis: Qualifiers: Sepsis acute organ dysfunction status: with acute organ dysfunction Sepsis type: sepsis due to unspecified organism Severe sepsis acute organ dysfunction type: unspecified Severe sepsis shock status: without septic shock Qualified Code(s): A41.9 - Sepsis, unspecified organism; R65.20 - Severe sepsis without septic shock Code(s): A41.9 - Sepsis, unspecified organism Status: Acute (4) Alcohol abuse: Code(s): F10.10 - Alcohol abuse, uncomplicated Status: Acute (5) Alcoholic pancreatitis: Qualifiers: Acute pancreatitis complication: unspecified Chronicity: acute Qualified Code(s): K85.20 - Alcohol induced acute pancreatitis without necrosis or infection Code(s): K85.20 - Alcohol induced acute pancreatitis without necrosis or infection Status: Acute (6) Abdominal ascites: Code(s): R18.8 - Other ascites Status: Acute (7) UTI (urinary tract infection): Qualifiers: Hematuria presence: without hematuria Urinary tract infection type: acute cystitis Qualified Code(s): N30.00 - Acute cystitis without hematuria Code(s): N39.0 - Urinary tract infection, site not specified Status: Acute (8) Electrolyte abnormality: Code(s): E87.8 - Other disorders of electrolyte and fluid balance, not elsewhere classified Status: Acute (9) Coagulopathy: Code(s): D68.9 - Coagulation defect, unspecified Status: Acute (10) Sinus tachycardia: Code(s): R00.0 - Tachycardia, unspecified Status: Acute Transfer Discharge Sum: Med Medications Active and Home Medications: Home Medications folic acid 1 mg tablet 1 mg PO DAILY #30 tabs 07/24/20 [Rx Confirmed 01/27/25] thiamine mononitrate (vit B1) 100 mg tablet 100 mg PO DAILY 10/12/20 [History Confirmed 01/27/25] cholecalciferol (vitamin D3) 1,250 mcg (50,000 unit) capsule 1,250 mcg PO WEEKLY #14 caps 03/03/21 [Rx Confirmed 01/27/25] buspirone 5 mg tablet See Rx Instructions .Route .COMPLEX #270 tabs 04/04/21 [Rx Confirmed 01/27/25] pantoprazole 40 mg tablet,delayed release See Rx Instructions .Route .COMPLEX #180 tabs 07/03/21 [Rx Confirmed 01/27/25] losartan 25 mg tablet 25 mg PO DAILY #30 tabs 07/06/21 [Rx Confirmed 01/27/25] Transfer Discharge Sum: Hosp Hospital Course Hospital course: Jaiden Urena is a 34 year old male PMH of erosive esophagitis, heavy alcohol abuse leading to alcoholic liver disease, generalized anxiety disorder, depression, pancreatitis, and previous suicide attempt presents here with weakness and uncontrolled alcoholism ER on 01/26. Patient stated that he has been abusing alcohol off and on he has a intermittently stopped drinking but most recently in July started drinking again heavily. He did do a detox program in [place] early this year but since then he has been drinking heavily for last many months. He states he started having abdominal pain which was diffuse 10 out 10 with no radiation. No fever chest pain shortness a breath, he did had nausea he also had some vomiting. He had some loose stools. He denied any hematochezia melena or hematemesis. He denied any dysuria. Other systems reviewed were negative Workup in the ER showed WBC 13.9, hemoglobin 15.2 (12.6 in 2020), platelet count of 474, INR 1.8 Ancef, sodium 131, creatinine 0.75 and a GFR >60, calcium 7.5 in the setting of an albumin of 3.1, total bilirubin 18.0, direct bilirubin 8.7, AST 6.6, ALT 113, alk-phos 295, initial ammonia 21 (repeat 70), lipase 532, and lactic 3.8. CT of the abdomen/pelvis from 01/26 showed fatty infiltration of the liver, moderate ascites, and small bilateral pleural effusions. Patient underwent a paracentesis on 01/27 which yielded 4000 mL of dark yellowish fluid - fluid studies pending. G stain showed rare white blood cells with no organisms. Initially plan was made to transfer patient to [facility] or [facility] for hepatology service from ER. Patient was accepted but was on transfer weight list. Patient was unable to find a bed bed for more than 24 hours. During this time patient was being managed in the ER. I was called 01/27 evening for admission to ICU while patient awaits transfer.. Patient was transferred to ICU overnight and I evaluated patient on 01/28 morning. That morning when I evaluated the patient he states he feels overall better. He does have mild abdominal pain but his severe abdominal pain that he came in with has resolved. He states the paracentesis helped. He still has intermittent nausea. He denies any other complaint. All other systems were reviewed and were negative Patient a couple consistent with acute alcoholic hepatitis with underlying chronic liver disease. Patient was started on N-acetylcysteine infusion and p.o. prednisone his discriminant factor was 57. Patient also had elevated lipase suggestive of pancreatitis but no inflammation seen on CT scan. Patient was placed on clear liquid diet and IV fluids. He also had UA consistent with UTI and was started on Rocephin. Ascites fluid studies from paracentesis fluid were not suggestive of peritonitis. He was also started on p.r.n. Ativan and low-dose Librium for to prevent alcohol withdrawal. Electrolytes were monitored and replaced. He was given vitamin K for his coagulopathy. Echocardiogram was ordered for tachycardia. GI was consulted. Patient was eventually able to get a bed at [facility] and was transferred in a stable condition. Patient Condition: Gaurded Prognosis Time Spent with Patient Time attestation: Total time spent providing and/or coordinating transfer services: Exam Narrative: General: Pt is alert awake and in NAD. He appears older than his age Lungs/Chest: Trachea central Clear BS B/L, No crackles or wheezing. Cardiac: RRR. Normal S1 S2. No murmurs Circulation: Pedal pulses are intact and symmetrical. Abdomen: abdomen is distended. Patient has fluid thrill. Soft nontender bowel sounds are decreased but present Extremities: No clubbing, cyanosis or edema. Warm : Daniels in place Neurologic: Follows commands. Moves all 4 extremities PERRL AO x3, no tremors Skin: Some petechiae present, several areas of tattoo all over his body DS: Data Data Completed and Pending Labs on day of discharge: Preliminary micro results at discharge 01/26/25 22:27 Blood Culture - Preliminary Blood 01/26/25 22:27 Blood Culture - Preliminary Blood
[2025-01-30 16:08] LABS: Osmolality, Urine 378 mOsmol/kg (.)
[2025-01-31 00:06] LABS: Osmolality, Serum 276 mOsmol/kg (275-295)
--- OUTSIDE RECORDS SUMMARY | 2025-03-16 08:16 | XMS_ITS | Clinical Summary ---
Author Organization 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,non-owned Affiliates and Associated Physician Practices is amultiple site organization consisting of ambulatory clinics and hospital sitesin [place], [place], [place] and [place]. This disclosure is being madepursuant to the Care Everywhere program and may not contain all information available regarding this patient. Last updated 18.[facility] Allergies Active Allergy Reactions Criticality Noted Date Comments Nickel Urticaria Medium 12/08/2024 Medications * Be aware that medications may not be up to date on this document. Alwaysverify current medications with the patient. icosapent ethyl (Vascepa) 1 g capsule Take 2 (two) capsules by mouth 2 times daily 11/18/19 25 Active [id number] ethyl esters (Lovaza) 1 g capsule Take 4 (four) capsules by mouth once daily 11/28/19 25 Active acamprosate calcium EC (Campral) 333 MG tabletIndicat ions:Alcohol Use Disorder Take 2 (two) tablets by mouth 3 times daily Reasons: Abuse or Misuse of Alcohol 540 tablet 5 12:39 PM CDT 02/16/20 25 Active busPIRone (Buspar) 5 MG tablet Take 1 (one) tablet by mouth 3 times daily 270 tablet 5 12:39 PM CDT 02/16/20 25 Active folic acid (Folvite) 1 MG tablet Take 1 (one) tablet by mouth once daily 90 tablet 5 12:39 PM CDT 02/16/20 25 Active hemorrhoidal (Preparation H) ointment Insert into the rectum 3 times daily 02/16/20 25 Active pantoprazole EC (Protonix) 40 MG tablet Take 1 (one) tablet by mouth once daily 90 tablet 5 12:39 PM CDT 02/17/20 25 Active lactulose (Chronulac) 10 GM/15ML solution Take 30 mL by mouth 3 times daily 8100 mL 5 12:39 PM CDT 02/16/20 25 Active rifAXIMin (Xifaxan) 550 MG tablet Take 1 (one) tablet by mouth 2 times daily 180 tablet 02/16/20 25 Active spironolacton e (Aldactone) 50 MG tablet Take 1 (one) tablet by mouth once daily 90 tablet 5 12:39 PM CDT 02/17/20 25 Active furosemide (Lasix) 20 MG tablet Take 1 (one) tablet by mouth once daily 90 tablet 5 12:39 PM CDT 02/17/20 25 Active thiamine (Vitamin B-1) 100 MG tablet Take 1 (one) tablet by mouth once daily 90 tablet 5 12:39 PM CDT 02/16/20 25 Active busPIRone (Buspar) 5 MG tablet Take 1 (one) tablet by mouth 3 times daily 11/18/19 25 2024 Discontinued hemorrhoidal (Preparation H) ointment Insert into the rectum 3 times daily 02/03/20 25 2024 Discontinued acetaminophen (Tylenol) 500 MG tablet Take 1 (one) tablet by mouth every 6 hours as needed for Fever, Pain or Headache Maximum allowable Acetaminophen amount = 2 Grams (2000 mg) / 24 hours. 02/03/20 25 2024 Discontinued(C linical Decision) folic acid (Folvite) 1 MG tablet Take 1 (one) tablet by mouth once daily 30 tablet 2 02/04/20 25 2024 Discontinued carvedilol (Coreg) 3.125 MG tablet Take 1 (one) tablet by mouth 2 times daily with morning and evening meal 60 tablet 1 02/03/20 25 2024 Discontinued(C linical Decision) acamprosate calcium EC (Campral) 333 MG tabletIndicat ions:Alcohol Use Disorder Take 2 (two) tablets by mouth 3 times daily Reasons: Abuse or Misuse of Alcohol 180 tablet 1 02/03/20 25 2024 Discontinued thiamine (Vitamin B-1) 100 MG tablet Take 1 (one) tablet by mouth once daily 30 tablet 1 02/03/20 25 2024 Discontinued omeprazole (PriLOSEC) 40 MG capsule Take 1 (one) capsule by mouth once daily 30 capsule 1 02/03/20 25 2024 Discontinued(C linical Decision) busPIRone (Buspar) 5 MG tablet Take 1 (one) tablet by mouth 3 times daily 270 tablet 02/16/20 25 2024 Discontinued acamprosate calcium EC (Campral) 333 MG tabletIndicat ions:Alcohol Use Disorder Take 2 (two) tablets by mouth 3 times daily Reasons: Abuse or Misuse of Alcohol 540 tablet 02/16/20 25 2024 Discontinued pantoprazole EC (Protonix) 40 MG tablet Take 1 (one) tablet by mouth once daily 90 tablet 02/17/20 25 2024 Discontinued thiamine (Vitamin B-1) 100 MG tablet Take 1 (one) tablet by mouth once daily 90 tablet 02/16/20 25 2024 Discontinued furosemide (Lasix) 20 MG tablet Take 1 (one) tablet by mouth once daily 90 tablet 02/17/20 25 2024 Discontinued lactulose (Chronulac) 10 GM/15ML solution Take 30 mL by mouth 3 times daily 8100 mL 02/16/20 25 2024 Discontinued rifAXIMin (Xifaxan) 550 MG tablet Take 1 (one) tablet by mouth 2 times daily 180 tablet 02/16/20 25 2024 Discontinued spironolacton e (Aldactone) 50 MG tablet Take 1 (one) tablet by mouth once daily 90 tablet 02/17/20 25 2024 Discontinued vancomycin (Vancocin) 125 MG capsule Take 1 (one) capsule by mouth every 6 hours for 10 days 40 capsule 02/16/20 25 2024 Discontinued(Smitha bellical Decision) folic acid (Folvite) 1 MG tablet Take 1 (one) tablet by mouth once daily 90 tablet 02/16/20 25 2024 Discontinued vancomycin (Firvanq) 25 MG/ML solution Take 5 mL by mouth every 6 hours for 10 days 200 mL 02/16/20 25 2024 Discontinued(C linical Decision) vancomycin (Vancocin) 125 MG capsule Take 1 (one) capsule by mouth every 6 hours for 10 days 40 capsule 12:39 PM CDT 02/16/202024 Active Problems Problem Noted Date Diagnosed Date Hyperbilirubinemia 02/09/2025 History of Clostridioides difficile colitis 07/2024 GERD (gastroesophageal reflux disease) Altered mental status, unspe cified altered mental status type 02/09/2025 Elevated bilirubin 02/09/2025 Ascites due to alcoholic cirrhosis 02/09/2025 Hypomagnesemia 01/30/2025 Assessment & Plan (02/03/2025 6:47 AM CDT): Suspect 2/2 poor nutrition (pt reports he eats limited diet, only fruits and then occasional spurts of only broccoli, does not eat 'well rounded' meals by definition) Na 132 -> 133 -> 131, K 3.7 -> 3.6, Mg 1.4 -> 1.9, Phos 2.9 -> 2.6 -> 2.7 PLAN -trended lytes w/ AM labs & replete for goal K > 4, Mg > 2, Phos > 3 -senior project architect taurus'd, does not meet malnutrition criteria -dietary supplements per senior project architect recs, encourage PO intake -discussed FW restriction approx 1500mL but should also drink electrolyte drinks (pedialyte, gatorade) Assessment & Plan (02/01/2025 7:18 PM CDT): Suspect 2/2 poor nutrition (pt reports he eats limited diet, only fruits and then occasional spurts of only broccoli, does not eat 'well rounded' meals by definition) Na 132 -> 133, K 3.7, Mg 1.4 -> 1.9, Phos 2.9 -> 2.6 PLAN -trend lytes w/ AM labs & replete for goal K > 4, Mg > 2, Phos > 3 -senior project architect eval'd, does not meet malnutrition criteria -dietary supplements per senior project architect recs, encourage PO intake Assessment & Plan (01/31/2025 9:33 PM CDT): Suspect 2/2 poor nutrition (pt reports he eats limited diet, only fruits and then occasional spurts of only broccoli, does not eat 'well rounded' meals by definition) Na 133 -> 132, K 3.6 -> 3.8, Mg 1.4 -> 2, Phos 2.1 -> 2.9 PLAN -trend lytes w/ AM labs & replete for goal K > 4, Mg > 2, Phos > 3 -senior project architect eval'd, does not meet malnutrition criteria -dietary supplements per senior project architect recs, encourage PO intake Assessment & Plan (01/30/2025 2:19 PM CDT): Suspect 2/2 poor nutrition (pt reports he eats limited diet, only fruits and then occasional spurts of only broccoli, does not eat 'well rounded' meals by definition) Na 133, K 3.6, Mg 1.4, Phos 2.1 PLAN -trend lytes w/ AM labs & replete for goal K > 4, Mg > 2, Phos > 3 -c/s senior project architect for nutritional eval -give 4g IV Mag (01/30) -give 30mmoL NaPhos IV (01/30) -give 40mEq KCl once (01/30) Hyponatremia 01/30/2025 Assessment & Plan (02/03/2025 6:47 AM CDT): Suspect 2/2 poor nutrition (pt reports he eats limited diet, only fruits and then occasional spurts of only broccoli, does not eat 'well rounded' meals by definition) Na 132 -> 133 -> 131, K 3.7 -> 3.6, Mg 1.4 -> 1.9, Phos 2.9 -> 2.6 -> 2.7 PLAN -trended lytes w/ AM labs & replete for goal K > 4, Mg > 2, Phos > 3 -senior project architect eval'd, does not meet malnutrition criteria -dietary supplements per senior project architect recs, encourage PO intake -discussed FW restriction approx 1500mL but should also drink electrolyte drinks (pedialyte, gatorade) Assessment & Plan (02/01/2025 7:18 PM CDT): Suspect 2/2 poor nutrition (pt reports he eats limited diet, only fruits and then occasional spurts of only broccoli, does not eat 'well rounded' meals by definition) Na 132 -> 133, K 3.7, Mg 1.4 -> 1.9, Phos 2.9 -> 2.6 PLAN -trend lytes w/ AM labs & replete for goal K > 4, Mg > 2, Phos > 3 -senior project architect eval'd, does not meet malnutrition criteria -dietary supplements per senior project architect recs, encourage PO intake Assessment & Plan (01/31/2025 9:33 PM CDT): Suspect 2/2 poor nutrition (pt reports he eats limited diet, only fruits and then occasional spurts of only broccoli, does not eat 'well rounded' meals by definition) Na 133 -> 132, K 3.6 -> 3.8, Mg 1.4 -> 2, Phos 2.1 -> 2.9 PLAN -trend lytes w/ AM labs & replete for goal K > 4, Mg > 2, Phos > 3 -senior project architect eval'd, does not meet malnutrition criteria -dietary supplements per senior project architect recs, encourage PO intake Assessment & Plan (01/30/2025 2:19 PM CDT): Suspect 2/2 poor nutrition (pt reports he eats limited diet, only fruits and then occasional spurts of only broccoli, does not eat 'well rounded' meals by definition) Na 133, K 3.6, Mg 1.4, Phos 2.1 PLAN -trend lytes w/ AM labs & replete for goal K > 4, Mg > 2, Phos > 3 -c/s senior project architect for nutritional eval -give 4g IV Mag (01/30) -give 30mmoL NaPhos IV (01/30) -give 40mEq KCl once (01/30) Tachycardia 01/30/2025 Assessment & Plan (02/03/2025 6:47 AM CDT): -Continue coreg, held losartan for hypo-normotension Assessment & Plan (02/01/2025 12:59 PM CDT): -Continue coreg, holding losartan for hypo-normotension Assessment & Plan (01/31/2025 9:33 PM CDT): -Continue coreg, holding losartan for hypo-normotension Assessment & Plan (01/30/2025 2:19 PM CDT): -Continue coreg, holding losartan for hypo-normotension Alcohol use disorder 01/29/2025 Assessment & Plan (02/03/2025 6:47 AM CDT): Tbili 21.1 -> 22.1 -> 27.6 -> 23.1 -> 25. S/p para (01/29) w/ 3.4L removed, fluid studies not suggestive of infection, peritoneal cxs negative. No current objective s/s acute withdrawal. PLAN -no spironolactone/lasix d/t BP -pt reported he wants to stop drinking EtOH, educated about acamprosate 01/31 and is interested in starting MAT (naltrexone not option per GI d/t acute liver state) -Cont MV, folate, thiamine supplementation -no SBP ppx need at this time per GI ([employer] Secure Chat 01/30) as no known h/o SBP and pt improving -peritoneal fluid cytology (01/29) pending (f/u OP w/ hepatology for results) -bedside therapeutic paracentesis completed 02/02 w/ 2.55L removed -started acamprosate po TID 02/02am, d/c AVS w/ OP resources for pt to establish care as able, should f/u OP for monitoring -hepatology following, f/u OP (appt scheduled for 02/02, being rescheduled) Assessment & Plan (02/01/2025 7:18 PM CDT): Tbili 21.1 -> 22.1 -> 27.6 -> 23.1. S/p para (01/29) w/ 3.4L removed, fluid studies not suggestive of infection, peritoneal cxs negative. No current objective s/s acute withdrawal. PLAN -Consider adding/titrating on spironolactone/lasix as BP tolerates -pt reports he wants to stop drinking EtOH, educated about acamprosate 01/31 and is interested in starting MAT (naltrexone not option per GI d/t acute liver state) -Cont MV, folate, thiamine supplementation -no SBP ppx need at this time per GI ([employer] Secure Chat 01/30) as no known h/o SBP and pt improving -peritoneal fluid cytology (01/29) pending -POCUS attempted for therapeutic paracentesis 02/01, inadequate collection > reeval 02/02, plan for therapeutic para prior to discharge -start acamprosate po TID 02/02am, d/c AVS w/ OP resources for pt to establish care as able, should f/u OP for monitoring -hepatology following, f/u OP (appt scheduled for 02/02, should reschedule) Assessment & Plan (01/31/2025 9:33 PM CDT): Tbili 21.1 -> 22.1 -> 27.6. S/p para (01/29) w/ 3.4L removed, fluid studies not suggestive of infection, peritoneal cxs negative. No current objective s/s acute withdrawal. PLAN -Consider adding/titrating on spironolactone/lasix as BP tolerates -pt reports he wants to stop drinking EtOH, educated about acamprosate 01/31 and is interested in starting MAT (naltrexone not option per GI d/t acute liver state) -Cont MV, folate, thiamine supplementation -no SBP ppx need at this time per GI ([employer] Secure Chat 01/30) as no known h/o SBP and pt improving -peritoneal fluid cytology (01/29) pending -if LFTs & Tbili rising on 02/01am labs, d/w hepatology & consider abdominal US Assessment & Plan (01/30/2025 3:03 PM CDT): ALP/ALT/AST downtrending. Tbili 21.1 -> 22.1. S/p para (01/29) w/ 3.4L removed, fluid studies not suggestive of infection. No current objective s/s acute withdrawal. PLAN -Consider titrating on spironolactone/lasix as BP tolerates -pt reports he wants to stop drinking EtOH, willing to learn more about acamprosate (naltrexone not option per GI d/t acute liver state) -Cont MV, folate, thiamine supplementation -no SBP ppx need at this time per GI ([employer] Secure Chat) as no known h/o SBP and pt improving -peritoneal fluid cytology (01/29) pending Assessment & Plan (01/29/2025 11:15 PM CDT): Liver enzymes downtrending S/p 3.4 L removed in paracentesis 01/29, fluid studies not suggestive of infection Does not appear to be withdrawing, can stop CIWA at this point Consider titrating on spironolactone/lasix as BP tolerates Counseled on EtOH cessation Continue vitamin supplementation Alcohol withdrawal syndrome with complication Assessment & Plan (02/03/2025 6:47 AM CDT): Tbili 21.1 -> 22.1 -> 27.6 -> 23.1 -> 25. S/p para (01/29) w/ 3.4L removed, fluid studies not suggestive of infection, peritoneal cxs negative. No current objective s/s acute withdrawal. PLAN -no spironolactone/lasix d/t BP -pt reported he wants to stop drinking EtOH, educated about acamprosate 01/31 and is interested in starting MAT (naltrexone not option per GI d/t acute liver state) -Cont MV, folate, thiamine supplementation -no SBP ppx need at this time per GI ([employer] Secure Chat 01/30) as no known h/o SBP and pt improving -peritoneal fluid cytology (01/29) pending (f/u OP w/ hepatology for results) -bedside therapeutic paracentesis completed 02/02 w/ 2.55L removed -started acamprosate po TID 02/02am, d/c AVS w/ OP resources for pt to establish care as able, should f/u OP for monitoring -hepatology following, f/u OP (appt scheduled for 02/02, being rescheduled) Assessment & Plan (02/01/2025 7:18 PM CDT): Tbili 21.1 -> 22.1 -> 27.6 -> 23.1. S/p para (01/29) w/ 3.4L removed, fluid studies not suggestive of infection, peritoneal cxs negative. No current objective s/s acute withdrawal. PLAN -Consider adding/titrating on spironolactone/lasix as BP tolerates -pt reports he wants to stop drinking EtOH, educated about acamprosate 01/31 and is interested in starting MAT (naltrexone not option per GI d/t acute liver state) -Cont MV, folate, thiamine supplementation -no SBP ppx need at this time per GI ([employer] Chat 01/30) as no known h/o SBP and pt improving -peritoneal fluid cytology (01/29) pending -POCUS attempted for therapeutic paracentesis 02/01, inadequate collection > reeval 02/02, plan for therapeutic para prior to discharge -start acamprosate po TID 02/02am, d/c AVS w/ OP resources for pt to establish care as able, should f/u OP for monitoring -hepatology following, f/u OP (appt scheduled for 02/02, should reschedule) Assessment & Plan (01/31/2025 9:33 PM CDT): Tbili 21.1 -> 22.1 -> 27.6. S/p para (01/29) w/ 3.4L removed, fluid studies not suggestive of infection, peritoneal cxs negative. No current objective s/s acute withdrawal. PLAN -Consider adding/titrating on spironolactone/lasix as BP tolerates -pt reports he wants to stop drinking EtOH, educated about acamprosate 01/31 and is interested in starting MAT (naltrexone not option per GI d/t acute liver state) -Cont MV, folate, thiamine supplementation -no SBP ppx need at this time per GI ([employer] Chat 01/30) as no known h/o SBP and pt improving -peritoneal fluid cytology (01/29) pending -if LFTs & Tbili rising on 02/01am labs, d/w hepatology & consider abdominal US Assessment & Plan (01/30/2025 3:03 PM CDT): ALP/ALT/AST downtrending. Tbili 21.1 -> 22.1. S/p para (01/29) w/ 3.4L removed, fluid studies not suggestive of infection. No current objective s/s acute withdrawal. PLAN -Consider titrating on spironolactone/lasix as BP tolerates -pt reports he wants to stop drinking EtOH, willing to learn more about acamprosate (naltrexone not option per GI d/t acute liver state) -Cont MV, folate, thiamine supplementation -no SBP ppx need at this time per GI ([employer] Chat) as no known h/o SBP and pt improving -peritoneal fluid cytology (01/29) pending Assessment & Plan (01/29/2025 11:15 PM CDT): Liver enzymes downtrending S/p 3.4 L removed in paracentesis 01/29, fluid studies not suggestive of infection Does not appear to be withdrawing, can stop CIWA at this point Consider titrating on spironolactone/lasix as BP tolerates Counseled on EtOH cessation Continue vitamin supplementation Hypophosphatemia 01/29/2025 Assessment & Plan (02/03/2025 6:47 AM CDT): Suspect 2/2 poor nutrition (pt reports he eats limited diet, only fruits and then occasional spurts of only broccoli, does not eat 'well rounded' meals by definition) Na 132 -> 133 -> 131, K 3.7 -> 3.6, Mg 1.4 -> 1.9, Phos 2.9 -> 2.6 -> 2.7 PLAN -trended lytes w/ AM labs & replete for goal K > 4, Mg > 2, Phos > 3 -senior project architect taurus'd, does not meet malnutrition criteria -dietary supplements per senior project architect recs, encourage PO intake -discussed FW restriction approx 1500mL but should also drink electrolyte drinks (pedialyte, gatorade) Assessment & Plan (02/01/2025 7:18 PM CDT): Suspect 2/2 poor nutrition (pt reports he eats limited diet, only fruits and then occasional spurts of only broccoli, does not eat 'well rounded' meals by definition) Na 132 -> 133, K 3.7, Mg 1.4 -> 1.9, Phos 2.9 -> 2.6 PLAN -trend lytes w/ AM labs & replete for goal K > 4, Mg > 2, Phos > 3 -senior project architect eval'd, does not meet malnutrition criteria -dietary supplements per senior project architect recs, encourage PO intake Assessment & Plan (01/31/2025 9:33 PM CDT): Suspect 2/2 poor nutrition (pt reports he eats limited diet, only fruits and then occasional spurts of only broccoli, does not eat 'well rounded' meals by definition) Na 133 -> 132, K 3.6 -> 3.8, Mg 1.4 -> 2, Phos 2.1 -> 2.9 PLAN -trend lytes w/ AM labs & replete for goal K > 4, Mg > 2, Phos > 3 -senior project architect eval'd, does not meet malnutrition criteria -dietary supplements per senior project architect recs, encourage PO intake Assessment & Plan (01/30/2025 2:19 PM CDT): Suspect 2/2 poor nutrition (pt reports he eats limited diet, only fruits and then occasional spurts of only broccoli, does not eat 'well rounded' meals by definition) Na 133, K 3.6, Mg 1.4, Phos 2.1 PLAN -trend lytes w/ AM labs & replete for goal K > 4, Mg > 2, Phos > 3 -c/s senior project architect for nutritional eval -give 4g IV Mag (01/30) -give 30mmoL NaPhos IV (01/30) -give 40mEq KCl once (01/30) Assessment & Plan (01/29/2025 11:15 PM CDT): Liver enzymes downtrending S/p 3.4 L removed in paracentesis 01/29, fluid studies not suggestive of infection Does not appear to be withdrawing, can stop CIWA at this point Consider titrating on spironolactone/lasix as BP tolerates Counseled on EtOH cessation Continue vitamin supplementation Hypokalemia 01/29/2025 Assessment & Plan (02/03/2025 6:47 AM CDT): Suspect 2/2 poor nutrition (pt reports he eats limited diet, only fruits and then occasional spurts of only broccoli, does not eat 'well rounded' meals by definition) Na 132 -> 133 -> 131, K 3.7 -> 3.6, Mg 1.4 -> 1.9, Phos 2.9 -> 2.6 -> 2.7 PLAN -trended lytes w/ AM labs & replete for goal K > 4, Mg > 2, Phos > 3 -senior project architect eval'd, does not meet malnutrition criteria -dietary supplements per senior project architect recs, encourage PO intake -discussed FW restriction approx 1500mL but should also drink electrolyte drinks (pedialyte, gatorade) Assessment & Plan (02/01/2025 7:18 PM CDT): Suspect 2/2 poor nutrition (pt reports he eats limited diet, only fruits and then occasional spurts of only broccoli, does not eat 'well rounded' meals by definition) Na 132 -> 133, K 3.7, Mg 1.4 -> 1.9, Phos 2.9 -> 2.6 PLAN -trend lytes w/ AM labs & replete for goal K > 4, Mg > 2, Phos > 3 -senior project architect eval'd, does not meet malnutrition criteria -dietary supplements per senior project architect recs, encourage PO intake Assessment & Plan (01/31/2025 9:33 PM CDT): Suspect 2/2 poor nutrition (pt reports he eats limited diet, only fruits and then occasional spurts of only broccoli, does not eat 'well rounded' meals by definition) Na 133 -> 132, K 3.6 -> 3.8, Mg 1.4 -> 2, Phos 2.1 -> 2.9 PLAN -trend lytes w/ AM labs & replete for goal K > 4, Mg > 2, Phos > 3 -senior project architect eval'd, does not meet malnutrition criteria -dietary supplements per senior project architect recs, encourage PO intake Assessment & Plan (01/30/2025 2:19 PM CDT): Suspect 2/2 poor nutrition (pt reports he eats limited diet, only fruits and then occasional spurts of only broccoli, does not eat 'well rounded' meals by definition) Na 133, K 3.6, Mg 1.4, Phos 2.1 PLAN -trend lytes w/ AM labs & replete for goal K > 4, Mg > 2, Phos > 3 -c/s senior project architect for nutritional eval -give 4g IV Mag (01/30) -give 30mmoL NaPhos IV (01/30) -give 40mEq KCl once (01/30) Assessment & Plan (01/29/2025 11:15 PM CDT): Liver enzymes downtrending S/p 3.4 L removed in paracentesis 01/29, fluid studies not suggestive of infection Does not appear to be withdrawing, can stop CIWA at this point Consider titrating on spironolactone/lasix as BP tolerates Counseled on EtOH cessation Continue vitamin supplementation Chronic systolic heart failure 01/29/2025 Assessment & Plan (02/03/2025 6:47 AM CDT): -Continue coreg, held losartan for hypo-normotension Assessment & Plan (02/01/2025 12:59 PM CDT): -Continue coreg, holding losartan for hypo-normotension Assessment & Plan (01/31/2025 9:33 PM CDT): -Continue coreg, holding losartan for hypo-normotension Assessment & Plan (01/30/2025 2:19 PM CDT): -Continue coreg, holding losartan for hypo-normotension Assessment & Plan (01/29/2025 11:15 PM CDT): Continue coreg, holding losartan C. difficile diarrhea 01/29/2025 Assessment & Plan (02/02/2025 2:30 PM CDT): Cdiff negative 01/29/25 but on ceftriaxone. Had c.diff infxn November 2024. PLAN -d/c'd PO Vancomycin 01/30 as c.diff negative and CTX d/c'd -cont loperamide PRN for diarrhea, discussed w/ patient the need for balancing bowel regimen for goal 3-5 BMs/day to reduce risk of hepatic encephalopathy Assessment & Plan (02/01/2025 12:59 PM CDT): Cdiff negative 01/29/25 but on ceftriaxone. Had c.diff infxn November 2024. PLAN -d/c'd PO Vancomycin 01/30 as c.diff negative and CTX d/c'd -cont loperamide PRN for diarrhea, discussed w/ patient the need for balancing bowel regimen for goal 3-5 BMs/day to reduce risk of hepatic encephalopathy Assessment & Plan (01/31/2025 9:33 PM CDT): Cdiff negative 01/29/25 but on ceftriaxone. Had c.diff infxn November 2024. PLAN -d/c'd PO Vancomycin 01/30 as c.diff negative and CTX d/c'd -cont loperamide PRN for diarrhea, discussed w/ patient the need for balancing bowel regimen for goal 3-5 BMs/day to reduce risk of hepatic encephalopathy Assessment & Plan (01/30/2025 3:03 PM CDT): Cdiff negative 01/29/25 but on ceftriaxone. Had c.diff infxn November 2024. PLAN -d/c PO Vancomycin 01/30 as c.diff negative and CTX d/c'd -start loperamide PRN for diarrhea Assessment & Plan (01/29/2025 11:15 PM CDT): Cdiff negative but on ceftriaxone Continue oral vanc until off ceftriaxone Resolved Problems Problem Noted Date Diagnosed Date Resolved Date Fatigue, unspecified type 02/09/2025 Decreased appetite 02/09/2025 Acute diarrhea 01/29/2025 02/26/2025 Assessment & Plan (02/02/2025 2:30 PM CDT): Cdiff negative 01/29/25 but on ceftriaxone. Had c.diff infxn November 2024. PLAN -d/c'd PO Vancomycin 01/30 as c.diff negative and CTX d/c'd -cont loperamide PRN for diarrhea, discussed w/ patient the need for balancing bowel regimen for goal 3-5 BMs/day to reduce risk of hepatic encephalopathy Assessment & Plan (02/01/2025 12:59 PM CDT): Cdiff negative 01/29/25 but on ceftriaxone. Had c.diff infxn November 2024. PLAN -d/c'd PO Vancomycin 01/30 as c.diff negative and CTX d/c'd -cont loperamide PRN for diarrhea, discussed w/ patient the need for balancing bowel regimen for goal 3-5 BMs/day to reduce risk of hepatic encephalopathy Assessment & Plan (01/31/2025 9:33 PM CDT): Cdiff negative 01/29/25 but on ceftriaxone. Had c.diff infxn November 2024. PLAN -d/c'd PO Vancomycin 01/30 as c.diff negative and CTX d/c'd -cont loperamide PRN for diarrhea, discussed w/ patient the need for balancing bowel regimen for goal 3-5 BMs/day to reduce risk of hepatic encephalopathy Assessment & Plan (01/30/2025 3:03 PM CDT): Cdiff negative 01/29/25 but on ceftriaxone. Had c.diff infxn November 2024. PLAN -d/c PO Vancomycin 01/30 as c.diff negative and CTX d/c'd -start loperamide PRN for diarrhea Assessment & Plan (01/29/2025 11:15 PM CDT): Cdiff negative but on ceftriaxone Continue oral vanc until off ceftriaxone UTI (urinary tract infection) 01/29/2025 02/12/2025 Assessment & Plan (02/02/2025 2:30 PM CDT): OSH UA (01/26) suggestive of UTI (+nitrites) but urine cx unremarkable (< 10K organisms) Repeat UA ([facility]) negative. OSH blood cxs (01/26) prelim NGTD x48h. PLAN -d/c'd IV CTX as UCx negative, not needed for SBP ppx per GI (see above) Assessment & Plan (02/01/2025 7:18 PM CDT): OSH UA (01/26) suggestive of UTI (+nitrites) but urine cx unremarkable (< 10K organisms) Repeat UA ([facility]) negative. OSH blood cxs (01/26) prelim NGTD x48h. PLAN -d/c'd IV CTX as UCx negative, not needed for SBP ppx per GI (see above) Assessment & Plan (01/31/2025 5:27 PM CDT): OSH UA (01/26) suggestive of UTI (+nitrites) but urine cx unremarkable (< 10K organisms) Repeat UA ([facility]) negative. OSH blood cxs (01/26) prelim NGTD x48h. PLAN -d/c IV CTX as UCx negative, not needed for SBP ppx per GI (see above) Assessment & Plan (01/30/2025 3:03 PM CDT): OSH UA (01/26) suggestive of UTI (+nitrites) but urine cx unremarkable (< 10K organisms) Repeat UA ([facility]) negative. OSH blood cxs (01/26) prelim NGTD x48h. PLAN -d/c IV CTX as UCx negative, not needed for SBP ppx per GI (see above) Assessment & Plan (01/29/2025 11:15 PM CDT): UA at OSH suggestive of UTI but urine cx pending Repeat UA here clean Continue ceftriaxone for now, obtain culture results from OSH to determine discontinuation now vs. Tomorrow Keep on oral vanc while on ceftriaxone given hx of Cdiff Alcoholic hepatitis with ascites 01/27/2025 02/10/2025 Assessment & Plan (02/03/2025 6:47 AM CDT): Tbili 21.1 -> 22.1 -> 27.6 -> 23.1 -> 25. S/p para (01/29) w/ 3.4L removed, fluid studies not suggestive of infection, peritoneal cxs negative. No current objective s/s acute withdrawal. PLAN -no spironolactone/lasix d/t BP -pt reported he wants to stop drinking EtOH, educated about acamprosate 01/31 and is interested in starting MAT (naltrexone not option per GI d/t acute liver state) -Cont MV, folate, thiamine supplementation -no SBP ppx need at this time per GI ([employer] Chat 01/30) as no known h/o SBP and pt improving -peritoneal fluid cytology (01/29) pending (f/u OP w/ hepatology for results) -bedside therapeutic paracentesis completed 02/02 w/ 2.55L removed -started acamprosate po TID 02/02am, d/c AVS w/ OP resources for pt to establish care as able, should f/u OP for monitoring -hepatology following, f/u OP (appt scheduled for 02/02, being rescheduled) Assessment & Plan (02/01/2025 7:18 PM CDT): Tbili 21.1 -> 22.1 -> 27.6 -> 23.1. S/p para (01/29) w/ 3.4L removed, fluid studies not suggestive of infection, peritoneal cxs negative. No current objective s/s acute withdrawal. PLAN -Consider adding/titrating on spironolactone/lasix as BP tolerates -pt reports he wants to stop drinking EtOH, educated about acamprosate 01/31 and is interested in starting MAT (naltrexone not option per GI d/t acute liver state) -Cont MV, folate, thiamine supplementation -no SBP ppx need at this time per GI ([employer] Secure Chat 01/30) as no known h/o SBP and pt improving -peritoneal fluid cytology (01/29) pending -POCUS attempted for therapeutic paracentesis 02/01, inadequate collection > reeval 02/02, plan for therapeutic para prior to discharge -start acamprosate po TID 02/02am, d/c AVS w/ OP resources for pt to establish care as able, should f/u OP for monitoring -hepatology following, f/u OP (appt scheduled for 02/02, should reschedule) Assessment & Plan (01/31/2025 9:33 PM CDT): Tbili 21.1 -> 22.1 -> 27.6. S/p para (01/29) w/ 3.4L removed, fluid studies not suggestive of infection, peritoneal cxs negative. No current objective s/s acute withdrawal. PLAN -Consider adding/titrating on spironolactone/lasix as BP tolerates -pt reports he wants to stop drinking EtOH, educated about acamprosate 01/31 and is interested in starting MAT (naltrexone not option per GI d/t acute liver state) -Cont MV, folate, thiamine supplementation -no SBP ppx need at this time per GI ([employer] Secure Chat 01/30) as no known h/o SBP and pt improving -peritoneal fluid cytology (01/29) pending -if LFTs & Tbili rising on 02/01am labs, d/w hepatology & consider abdominal US Assessment & Plan (01/30/2025 3:03 PM CDT): ALP/ALT/AST downtrending. Tbili 21.1 -> 22.1. S/p para (01/29) w/ 3.4L removed, fluid studies not suggestive of infection. No current objective s/s acute withdrawal. PLAN -Consider titrating on spironolactone/lasix as BP tolerates -pt reports he wants to stop drinking EtOH, willing to learn more about acamprosate (naltrexone not option per GI d/t acute liver state) -Cont MV, folate, thiamine supplementation -no SBP ppx need at this time per GI ([employer] Secure Chat) as no known h/o SBP and pt improving -peritoneal fluid cytology (01/29) pending Assessment & Plan (01/29/2025 11:15 PM CDT): Liver enzymes downtrending S/p 3.4 L removed in paracentesis 01/29, fluid studies not suggestive of infection Does not appear to be withdrawing, can stop CIWA at this point Consider titrating on spironolactone/lasix as BP tolerates Counseled on EtOH cessation Continue vitamin supplementation Encounters Date Type Department Care Team Description 02/23/2025 Travel 02/19/2025 1:17 PM CDT - 02/19/2025 11:59 PM CDT Hospital Encounter [facility] [address] [place], [place] [id number] Nelida Leonardo MD Discharge Disposition: Home or Self Care 02/19/2025 Travel 02/17/2025 Telephone Transitional Care at [address] [phone] Marsha Hoyos dry color mixer 02/16/2025 Telephone Transitional Care at [place] [phone] Fátima Anton, dry color mixer 02/09/2025 4:22 PM CDT - 02/15/2025 12:47 PM CDT Hospital Encounter [address] TELE [address] [place] [id number] Enrrique Jerry DO Usman, Ahsan, MD Nangle, Sarah E, DO Marudhai, Suganya, MD Hambolu, Kehinde, MD Mathew, Simi, MD Hospitalist Discharge Disposition: Home or Self Care 02/09/2025 2:30 PM CDT Office Visit Transitional Care at [address] [phone] Samantha Chen, PROGRAM MANAGEMENT SPECIALIST-SHAKE OUT WORKER Hospital discharge follow-up (Primary Dx); Alcohol use disorder; Alcoholic cirrhosis of liver with ascites (HCC); Hepatitis; Lethargy 02/09/2025 Travel 02/04/2025 Telephone Transitional Care at [address] [phone] Fátima Anton, dry color mixer 02/03/2025 Transitional Care Transitional Care at [address] [phone] Elizabeth Bynum RNdry color mixer 01/29/2025 Travel 01/28/2025 8:08 PM CDT - 02/02/2025 4:08 PM CDT Hospital Encounter [facility] [address] [place] [phone] Anders Dean MD Joag, Madhura, MD Hazam, Randa, MD Internal Medicine Discharge Disposition: Home or Self Care from Last 3 Months Social History Tobacco Use Types Packs/Day Years Used Date Smoking Tobacco: Former Cigarettes 1 0.3 1 - 06/2021 Smokeless Tobacco: Never Tobacco Cessation:Counseling Given: Not Answered Alcohol Use Standard Drinks/Week Comments Yes 0 (1 standard drink = 0.6 oz pur e alcohol) Last drink 01/26/25. AUDIT-C Answer Date Recorded Q1: How often do you have a drink containing alc ohol? Monthly or less 02/09/2025 Q2: How many drinks containi ng alcohol do you have on a typical day when you are drinking? 7 to 9 02/09/2025 Q3: How often do you have si x or more drinks on one occasion? Weekly 02/09/2025 Overall Financial Resource Strain (CARDIA) Answe r Date Recorded How hard is it for you to pa y for the very basics like food, housing, medical care, and heating? Not very hard 02/10/2025 [employer] - Occupational Stress Questionnaire Answer Date Recorded Do you feel stress - tense, restless, nervous, or anxious, or unable to sleep at night because your mind is troubled all the time - these days? Very much 02/10/2025 Hunger Vital Sign Answer Date Recorded Within the past 12 months, y ou worried that your food would run out before you got the money to buy more. Never true 09/03/20 25 Within the past 12 months, t he food you bought just didn't last and you didn't have money to get more. Never true 02/10/2025 PRAPARE - Transportation Answer Date Re corded In the past 12 months, has l ack of transportation kept you from medical appointments or from getting medications? No 08/2024 In the past 12 months, has l ack of transportation kept you from meetings, work, or from getting things needed for daily living? No 02/10/2025 Housing Stability Vital Sign Answer Brayden e Recorded In the last 12 months, was t here a time when you were not able to pay the mortgage or rent on time? No 02/10/2025 In the past 12 months, how m any times have you moved where you were living? 1 02/10/2025 At any time in the past 12 m [facility], were you homeless or living in a custodial (including now)? No 02/10/2025 Sex and Gender Information Value Date Recorded Sex Assigned at Not on file Legal Sex Male 7:58 AM CARDIAC RN Gender Identity Male 02/19/2025 11:33 AM CDT Sexual Orientation Not on file Last Filed Vital Signs Vital Sign Reading Time Taken Comments Blood Pressure 108/65 02/19/2025 3:01 PM CDT Pulse 88 02/19/2025 3:01 PM CDT Temperature 36.7 C (98.1 F) 02/15/2025 8:12 AM CDT Respiratory Rate 17 02/19/2025 3:01 PM CDT Oxygen Saturation 95% 02/19/2025 3:01 PM CDT Inhaled Oxygen Concentration - - Weight 81.6 kg (180 lb) 02/19/2025 1:26 PM CDT Height 175.3 cm (5' 9) 02/19/2025 1:26 PM CDT Body Mass Index 26.58 02/19/2025 1:26 PM CDT Plan of Treatment Health Maintenance Due Date Last Done Comments HIV SCREENING 2005 DTAP/TDAP/TD VACCINES (1 - Tdap) 2009 HEPATITIS B VACCINE (1 of 3 - 19+ 3-dose series) 2009 PNEUMOCOCCAL VACCINE (1 of 2 - PCV) 2009 HPV VACCINE (1 - 3-dose SCDM series) 2017 DEPRESSION SCREENING 06/10/2024 COVID-19 VACCINE ( season) 2025 INFLUENZA VACCINE (#1) 2025 ZOSTER VACCINE (1 of 2) 2040 HEPATITIS C SCREENING Completed 01/12/2025 , 01/12/2025, 01/12/2025, Additional history exists HIB VACCINE Aged Out No longer eligi ble based on patient's age to complete this topic MENINGOCOCCAL (Group B) VACCINE SHARED DECISION-MAKING Aged Out No longer eligible based on patient's age to complete this topic MENINGOCOCCAL GROUPS A/C/Y/W VACCINE Aged Out No longer eligible based on patient's age to complete this topic Goals Goal Patient Goal Type Associated Problems Recent Progress Patient-Stated? Author Medication Management General On track( 025 3:23 PM CDT) No Trisha Rodriguez, RN Note: Expected end date: ongoing Interventions: Take all medications as prescribed Let your doctor know right away about any changes in your medications Make sure to request a refill of your medication at least one week prior to your last dose Procedures Procedure Name Priority Date/Time Associated Diagnosis Comments IR US PARACENTESIS Routine 02/19/2025 2: 59 PM CDT Ascites due to alcoholic cirrhosis (HCC) CARDIAC RHYTHM STRIP ORDER 02/16/2025 9:17 PM CDT DIFFERENTIAL MANUAL AM Draw 02/15/2025 2 :54 AM CDT AMMONIA Routine 02/15/2025 2:54 AM CDT COMPREHENSIVE METABOLIC PANEL AM Draw 02/15/2025 2:54 AM CDT CBC W AUTO DIFFERENTIAL AM Draw 02/15/2025 2:54 AM CDT CBC W AUTO DIFFERENTIAL AM Draw 02/14/2025 2:57 AM CDT COMPREHENSIVE METABOLIC PANEL AM Draw 02/13/2025 3:51 AM CDT HEPATIC FUNCTION PANEL FAHAD 3:19 AM CDT RENAL FUNCTION PANEL AM Draw 02/12/2025 3:19 AM CDT CBC W/O DIFFERENTIAL AM Draw 02/12/2025 3:19 AM CDT C DIFFICILE BY PCR Routine 02/11/2025 11 :33 AM CDT C DIFFICILE GDH AG + TOXIN A+B Routine 02/11/2025 11:33 AM CDT MAGNESIUM BLOOD Routine 02/11/2025 2:33 AM CDT RENAL FUNCTION PANEL AM Draw 02/11/2025 2:33 AM CDT CBC W/O DIFFERENTIAL AM Draw 02/11/2025 2:33 AM CDT CARDIAC EKG ORDER 02/10/2025 5:2 2 PM CDT IR US PARACENTESIS Routine 02/10/2025 10 :35 AM CDT Ascites due to alcoholic cirrhosis (HCC) LIPASE BLOOD STAT 02/10/2025 3:32 AM CDT PHOSPHORUS BLOOD STAT 02/10/2025 3:32 AM CDT MAGNESIUM BLOOD STAT 02/10/2025 3:32 AM CDT COMPREHENSIVE METABOLIC PANEL STAT 02/10/2025 3:32 AM CDT CBC W AUTO DIFFERENTIAL STAT 02/10/2025 3:[address] ABDOMEN PELVIS W CONTRAST STAT 02/09/2025 7:25 PM CDT Altered mental status, unspecified altered mental status type CT HEAD WO CONTRAST STAT 02/09/2025 7 :25 PM CDT Altered mental status, unspecified altered mental status type URINALYSIS REFLEX TO MICROSCOPIC NO CULTURE STAT 02/09/2025 7:08 PM CDT XR CHEST 1VW PORTABLE STAT 02/09/2025 6:53 PM CDT Fatigue, unspecified type EKG 12-LEAD STAT 02/09/2025 5:42 PM CDT Fatigue, unspecified type TROPONIN-I HIGH SENSITIVE STAT 02/09/2025 5:12 PM CDT B-TYPE NATRIURETIC PEPTIDE STAT 02/09/2025 5:12 PM CDT PHOSPHORUS BLOOD STAT 02/09/2025 5:12 PM CDT MAGNESIUM BLOOD STAT 02/09/2025 5:12 PM CDT PT-INR STAT 02/09/2025 5:12 PM CDT LACTIC ACID BLOOD REFLEX TO REPEAT STAT 02/09/2025 5:12 PM CDT AMMONIA STAT 02/09/2025 5:12 PM CDT COMPREHENSIVE METABOLIC PANEL STAT 02/09/2025 5:12 PM CDT CBC W AUTO DIFFERENTIAL STAT 02/09/2025 5:12 PM CDT PT-INR AM Draw 02/02/2025 5:49 AM CDT CBC W/O DIFFERENTIAL Routine 02/02/2025 5:49 AM CDT PHOSPHORUS BLOOD Routine 02/02/2025 5:49 AM CDT MAGNESIUM BLOOD Routine 02/02/2025 5:49 AM CDT COMPREHENSIVE METABOLIC PANEL Routine 02/02/2025 5:49 AM CDT PT-INR AM Draw 02/01/2025 11:13 AM CDT CBC W/O DIFFERENTIAL Routine 02/01/2025 5:47 AM CDT PHOSPHORUS BLOOD Routine 02/01/2025 5:47 AM CDT MAGNESIUM BLOOD Routine 02/01/2025 5:47 AM CDT COMPREHENSIVE METABOLIC PANEL Routine 02/01/2025 5:47 AM CDT LIPASE BLOOD AM Draw 01/31/2025 7:59 AM CDT BILIRUBIN DIRECT Routine 01/31/2025 7:59 AM CDT CBC W/O DIFFERENTIAL Routine 01/31/2025 7:59 AM CDT PHOSPHORUS BLOOD Routine 01/31/2025 7:59 AM CDT MAGNESIUM BLOOD Routine 01/31/2025 7:59 AM CDT COMPREHENSIVE METABOLIC PANEL Routine 01/31/2025 7:59 AM CDT CBC W/O DIFFERENTIAL Routine 01/30/2025 5:55 AM CDT PHOSPHORUS BLOOD Routine 01/30/2025 5:55 AM CDT MAGNESIUM BLOOD Routine 01/30/2025 5:55 AM CDT COMPREHENSIVE METABOLIC PANEL Routine 01/30/2025 5:55 AM CDT LDH BLOOD Routine 01/29/2025 3:44 PM CDT RENAL FUNCTION PANEL Timed 01/29/2025 3:44 PM CDT DIFFERENTIAL MANUAL FLUID Routine 01/29/2025 3:38 PM CDT PROTEIN BODY FLUID Routine 01/29/2025 3: 38 PM CDT LDH BODY FLUID Routine 01/29/2025 3:38 PM CDT GLUCOSE BODY FLUID Routine 01/29/2025 3: 38 PM CDT CELL COUNT W DIFFERENTIAL FLUID Routine 01/29/2025 3:38 PM CDT ALBUMIN BODY FLUID Routine 01/29/2025 3: 38 PM CDT CYTOLOGY NON-BILINGUAL TEACHER ASSISTANT PANEL (STL) Routine 01/29/2025 3:36 PM CDT Alcoholic hepatitis with ascites (HCC) CULTURE FLUID+GRAM STAIN Routine 01/29/2025 3:36 PM CDT MAGNESIUM BLOOD Timed 01/29/2025 2:29 PM CDT BASIC METABOLIC PANEL (CALCIUM TOTAL) Timed 01/29/2025 2:29 PM CDT PHOSPHORUS BLOOD Timed 01/29/2025 1:29 PM CDT C DIFFICILE GDH AG + TOXIN A+B Routine 01/29/2025 10:56 AM CDT EKG 12-LEAD Routine 01/29/2025 5:38 AM CDT Alcoholic hepatitis with ascites (HCC) COMPREHENSIVE METABOLIC PANEL Routine 01/29/2025 3:25 AM CDT LIPASE BLOOD AM Draw 01/29/2025 3:25 AM CDT MAGNESIUM BLOOD Timed 01/29/2025 3:25 AM CDT PHOSPHORUS BLOOD Timed 01/29/2025 3:25 AM CDT PT-INR Routine 01/29/2025 3:25 AM CDT CBC W AUTO DIFFERENTIAL Routine 01/29/2025 3:25 AM CDT URINALYSIS REFLEX TO MICROSCOPIC NO CULTURE STAT 01/29/2025 1:21 AM CDT PHOSPHORUS BLOOD STAT 01/28/2025 9:36 PM CDT MAGNESIUM BLOOD STAT 01/28/2025 9:36 PM CDT PT-INR STAT 01/28/2025 9:36 PM CDT CBC W AUTO DIFFERENTIAL STAT 01/28/2025 9:36 PM CDT COMPREHENSIVE METABOLIC PANEL STAT 01/28/2025 9:36 PM CDT from Last 3 Months Results * IR US Paracentesis (02/19/2025 2:59 PM CDT) Only the most recent of2 resultswithin the time period is included. Anatomical Region Laterality Modality Abdomen X-Ray Angiograph y 02/19/2025 3:14 PM CDT Impressions 02/22/2025 5:06 PM CDT Impression: Successful ultrasound-guided paracentesis, as described above. I, Dr. Oneal Mott, was present and performed/supervised the entire procedure. > Dictated by Tony Akhtar MD vice president education > Dictated by Environmental Health Aide IOneal MD have personally reviewed and interpreted this examination/study. > Interpreting Provider: Oneal Mott MD on 02/22/2025 5:06 PM Narrative 02/22/2025 5:06 PM CDT History: 34M PMH alcoholic cirrhosis with ascites, hx of cdiff, hx of alcohol withdrawal seizures, systolic chf with EF of 40-45%, alcoholic hepatitis. Received paracentesis 02/10 withdrawing 2300 mL of clear straw-colored fluid. Operators: 1.Dr. Oneal Mott, Attending Physician 2.Dr. Tony Akhtar, Resident Physician Anesthesia: Local - 10 mL of 1% lidocaine Procedure: 1.Limited ultrasound evaluation of the abdomen. 2.Ultrasound-guided paracentesis. Procedure in detail: The procedure, risks, and possible complications were explained to the patient in detail, and informed consent was obtained. The patient was placed in a supine position on the ultrasound table. Limited ultrasound evaluation of the abdomen demonstrated the presence of moderate volume ascites. An image was recorded, and a percutaneous entry site was marked on the skin to access the right lower quadrant. The marked site and skin around the region of interest were prepped and draped in sterile fashion. Local anesthesia was provided with 1% Lidocaine. Using ultrasound guidance, a 5-[place] One-Step Centesis coaxial needle system was advanced into the peritoneal cavity. The needle entry was documented. Upon fluid return, the outer sheath was advanced over the needle into the peritoneal cavity and the needle was removed. The sheath was then connected to a Vacutainer bottle andapproximately 2800 mL of straw-colored fluid was drained. Post-procedure limited ultrasound evaluation of the abdomen showed minimal to no residual ascites. The sheath was then removed, and sterile dressing was applied. The patient tolerated the procedure well and was transferred to the holding area in stable condition. There were no immediate complications associated with the procedure. Procedure Note Oneal Mott MD - 02/22/2025 History: 34M PMH alcoholic cirrhosis with ascites, hx of cdiff, hx of alcohol withdrawal seizures, systolic chf with EF of 40-45%, alcoholic hepatitis. Received paracentesis 02/10 withdrawing 2300 mL of clear straw-colored fluid. Operators: 1.Dr. Oneal Mott, Attending Physician 2.Dr. Tony Akhtar, Resident Physician Anesthesia: Local - 10 mL of 1% lidocaine Procedure: 1.Limited ultrasound evaluation of the abdomen. 2.Ultrasound-guided paracentesis. Procedure in detail: The procedure, risks, and possible complications were explained to the patient in detail, and informed consent was obtained. The patient was placed in a supine position on the ultrasound table. Limited ultrasound evaluation of the abdomen demonstrated the presence of moderate volume ascites. An image was recorded, and a percutaneous entry site was markedon the skin to access the right lower quadrant. The marked site and skin around the region of interest were prepped and draped in sterile fashion. Local anesthesia was provided with 1%Lidocaine. Using ultrasound guidance, a 5-[place] One-Step Centesis coaxial needle system was advanced into the peritoneal cavity. The needle entry was documented. Upon fluid return, the outer sheath was advanced over the needle into the peritoneal cavity and the needle was removed. The sheath was then connected to a Vacutainer bottle andapproximately 2800 mL of straw-colored fluid was drained. Post-procedure limited ultrasound evaluation of the abdomen showedminimal to no residual ascites. The sheath was then removed, and steriledressing was applied. The patient tolerated the procedure well [facility] There were no immediate complicationsassociated with the procedure. Impression: Successful ultrasound-guided paracentesis, as described above. I, Dr. Oneal Mott, was present and performed/supervised the entire procedure. > Dictated by Tony Akhtar MD vice president education > Dictated by Environmental Health Aide IOneal MD have personally reviewed and interpreted this examination/study. > Interpreting Provider: Oneal Mott MD on 02/22/2025 5:06 PM us Nelida Leonardo MD IR ORDERABLES Final Result * CARDIAC RHYTHM STRIP ORDER (02/16/2025 9:17 PM CDT) Narrative 02/16/2025 9:17 PM CDT Ordered by an unspecified provider. us Scanned Document CARDIAC SERVICES ORDERABLES Fin al Result * (ABNORMAL) DIFFERENTIAL MANUAL (02/15/2025 2:54 AM CDT) Neutrophil % 89(H) 41 - 74 % 02/15/2025 4:56 AM CDT [facility] Lymphocyte % 3(L) 17 - 47 % 02/15/2025 4:56 AM CDT [facility] Monocyte % 7 3 - 11 % 02/15/2025 4:56 AM CDT [facility] Basophil % 1 0 - 2 % 02/15/2025 4:56 AM CDT [facility] Neutrophil Absolute 17.53(H) 1.60 - 7.50 x10E9/L 02/15/2025 4:56 AM CDT [facility] Lymphocyte Absolute 0.59(L) 1.00 - 4.40 x10E9/L 02/15/2025 4:56 AM CDT [facility] Monocyte Absolute 1.38(H) 0.15 - 1.00 x10E9/L 02/15/2025 4:56 AM CDT [facility] Basophil Absolute 0.20(H) 0.00 - 0.13 x10E9/L 02/15/2025 4:56 AM CDT [facility] RBC Morphology REVIEWED 02/15/2025 4:56 AM CDT [facility] Macrocytosis MANY(A) (none) 02/15/2025 4:56 AM CDT [facility] Blood BLOOD SPECIMEN / Unknown Lab Venipuncture / Unknown 02/15/2025 2:54 AM CDT 02/15/2025 3:57 AM CDT us Nataliia Abel MD LAB - HEMATOLOGY ORDERABLES Della charles Result Performing Organization Address City/State/[facility] Co de Phone Number [facility] [address] [place] [address] * (ABNORMAL) CBC W AUTO DIFFERENTIAL (02/15/2025 2:54 AM CDT) Only the most recent of6 resultswithin the time period is included. WBC 19.7(H) 4.0 - 10.7 x10E9/L 02/15/2025 4:57 AM CDT [facility] RBC Count 3.35(L) 4.30 - 5.80 x10E12/L 02/15/2025 4:57 AM CDT [facility] Hemoglobin 11.8(L) 13.3 - 17.5 g/dL 02/15/2025 4:57 AM CDT [facility] Hematocrit 34.4(L) 38.7 - 51.1 % 02/15/2025 4:57 AM CDT [facility] MCV 102.7(H) 80.0 - 98.0 fL 02/15/2025 4:57 AM CDT [facility] MCH 35.2(H) 26.7 - 33.6 pg 02/15/2025 4:57 AM CDT [facility] MCHC 34.3 31.7 - 36.3 g/dL 02/15/2025 4:57 AM CDT [facility] RDW-CV 19.5(H) 11.3 - 14.8 % 02/15/2025 4:57 AM CDT [facility] Platelet Count 290 150 - 420 x10E9/L 02/15/2025 4:57 AM CDT [facility] MPV 10.6 7.8 - 11.4 fL 02/15/2025 4:57 AM CDT [facility] Blood BLOOD SPECIMEN / Unknown Lab Venipuncture / Unknown 02/15/2025 2:54 AM CDT 02/15/2025 3:57 AM CDT us Nataliia Abel MD LAB - HEMATOLOGY ORDERABLES Della charles Result [facility] [address] [place], [place] [id number] * (ABNORMAL) COMPREHENSIVE METABOLIC PANEL (02/15/2025 2:54 AM CDT) Only the most recent of10 resultswithin the time period is included. Glucose 84 70 - 99 mg/dL 02/15/2025 5:39 AM [facility] Sodium 136 136 - 145 mmol/L 02/15/2025 5:39 AM [facility] Potassium 3.3(L) 3.5 - 5.1 mmol/L 02/15/2025 5:39 AM [facility] Chloride 104 98 - 107 mmol/L 02/15/2025 5:39 AM [facility] CO2 24 22 - 29 mmol/L 02/15/2025 5:39 AM [facility] Calcium 8.1(L) 8.4 - 10.4 mg/dL 02/15/2025 5:39 AM [facility] Anion Gap 8 6 - 16 mmol/L 02/15/2025 5:39 AM CDT [facility] BUN 8 5.3 - 18.7 mg/dL 02/15/2025 5:39 AM [facility] Creatinine 0.62(L) 0.72 - 1.25 mg/dL 02/15/2025 5:39 AM CDT [facility] Alkaline Phosphatase 101 40 - 150 U/L 02/15/2025 5:39 AM CDT [facility] ALT 33 6 - 57 U/L 02/15/2025 5:39 AM CDT [facility] AST 127(H) 10 - 48 U/L 02/15/2025 5:39 AM CDT [facility] Protein Total 5.7(L) 6.4 - 8.3 gm/dL 02/15/2025 5:39 AM CDT [facility] Albumin 2.4(L) 3.1 - 4.5 gm/dL 02/15/2025 5:39 AM CDT [facility] Bilirubin Total 24.8(H) 0.2 - 1.2 mg/dL 02/15/2025 5:39 AM CDT [facility] eGFR by CKD-EPI >90 >=90 mL/min/1.7 3 m2 02/15/2025 5:39 AM CDT [facility] Comment:Estimated Glomerular Filtration Rate (eGFR) calculated using the CKD-EPI Creatinine Equation (2020), per the National Kidney Foundation and [employer] Society [employer] Neph[employer] recommendations. Blood BLOOD SPECIMEN / Unknown Lab Venipuncture / Unknown 02/15/2025 2:54 AM CDT 02/15/2025 3:57 AM CDT us Nataliia Abel MD LAB - CHEMISTRY ORDERABLES Final Result Performing Organization Address City/[facility]/ZIP Co de Phone Number [facility] [address] [place] [phone] * AMMONIA (02/15/2025 2:54 AM CDT) Only the most recent of2 resultswithin the time period is included. Ammonia 60 18 - 72 umol/L 02/15/2025 5:27 AM CDT [facility] Blood BLOOD SPECIMEN / Unknown Lab Venipuncture / Unknown 02/15/2025 2:54 AM CDT 02/15/2025 3:55 AM CDT us Nataliia Abel MD LAB - CHEMISTRY ORDERABLES Final Result [facility] [address] [place] [address] * (ABNORMAL) CBC W/O DIFFERENTIAL (02/12/2025 3:19 AM CDT) Only the most recent of6 resultswithin the time period is included. WBC 14.0(H) 4.0 - 10.7 x10E9/L 02/12/2025 3:41 AM CDT [facility] RBC Count 3.54(L) 4.30 - 5.80 x10E12/L 02/12/2025 3:41 AM CDT [facility] Hemoglobin 12.3(L) 13.3 - 17.5 g/dL 02/12/2025 3:41 AM CDT [facility] Hematocrit 36.3(L) 38.7 - 51.1 % 02/12/2025 3:41 AM CDT [facility] MCV 102.5(H) 80.0 - 98.0 fL 02/12/2025 3:41 AM CDT [facility] MCH 34.7(H) 26.7 - 33.6 pg 02/12/2025 3:41 AM CDT [facility] MCHC 33.9 31.7 - 36.3 g/dL 02/12/2025 3:41 AM CDT [facility] RDW-CV 20.0(H) 11.3 - 14.8 % 02/12/2025 3:41 AM CDT [facility] Platelet Count 347 150 - 420 x10E9/L 02/12/2025 3:41 AM CDT [facility] MPV 10.1 7.8 - 11.4 fL 02/12/2025 3:41 AM CDT [facility] Blood BLOOD SPECIMEN / Unknown Lab Venipuncture / Unknown 02/12/2025 3:19 AM CDT 02/12/2025 3:36 AM CDT us Porsche Ugarte MD LAB - HEMATOLOGY ORDERABLES Final Result Performing Organization Address City/[facility]/ZIP Co de Phone Number [facility] [address] [place] [address] * (ABNORMAL) RENAL FUNCTION PANEL (02/12/2025 3:19 AM CDT) Only the most recent of3 resultswithin the time period is included. Glucose 94 70 - 99 mg/dL 02/12/2025 4:03 AM [facility] Sodium 137 136 - 145 mmol/L 02/12/2025 4:03 AM [facility] Potassium 3.6 3.5 - 5.1 mmol/L 02/12/2025 4:03 AM [facility] Chloride 109(H) 98 - 107 mmol/L 02/12/2025 4:03 AM [facility] CO2 19(L) 22 - 29 mmol/L 02/12/2025 4:03 AM [facility] Calcium 8.1(L) 8.4 - 10.4 mg/dL 02/12/2025 4:03 AM [facility] Anion Gap 9 6 - 16 mmol/L 02/12/2025 4:03 AM [facility] BUN 7 5.3 - 18.7 mg/dL 02/12/2025 4:03 AM [facility] Creatinine 0.57(L) 0.72 - 1.25 mg/dL 02/12/2025 4:03 AM [facility] Albumin 2.7(L) 3.1 - 4.5 gm/dL 02/12/2025 4:03 AM [facility] Phosphorus 2.5 2.5 - 4.5 mg/dL 02/12/2025 4:03 AM [facility] eGFR by CKD-EPI >90 >=90 mL/min/1.7 3 m2 02/12/2025 4:03 AM [facility] Comment:Estimated Glomerular Filtration Rate (eGFR) calculated using the CKD-EPI Creatinine Equation (2020), per the National Kidney Foundation and [employer] Neph[employer] recommendations. Blood BLOOD SPECIMEN / Unknown Lab Venipuncture / Unknown 02/12/2025 3:19 AM CDT 02/12/2025 3:36 AM T us Porsche Ugarte MD LAB - CHEMISTRY ORDERABLES F inal Result [facility] [address] [place] [address] * (ABNORMAL) HEPATIC FUNCTION PANEL (02/12/2025 3:19 AM CDT) Pathologist [facility] Alkaline Phosphatase 94 40 - 150 U/L 02/12/2025 8:59 AM CDT [facility] ALT 25 6 - 57 U/L 02/12/2025 8:59 AM CDT [facility] AST 121(H) 10 - 48 U/L 02/12/2025 8:59 AM CDT [facility] Protein Total 5.8(L) 6.4 - 8.3 gm/dL 02/12/2025 8:59 AM CDT [facility] Albumin 2.7(L) 3.1 - 4.5 gm/dL 02/12/2025 8:59 AM CDT [facility] Bilirubin Total 25.8(H) 0.2 - 1.2 mg/dL 02/12/2025 8:59 AM CDT [facility] Bilirubin Direct 16.765(H) 0.10 - 0.50 mg/dL 02/12/2025 8:59 AM CDT [facility] Blood BLOOD SPECIMEN / Unknown Lab Venipuncture / Unknown 02/12/2025 3:19 AM CDT 02/12/2025 3:36 AM CDT us Nelida Leonardo MD LAB - CHEMISTRY ORDERABLES Final Result [facility] [address] [place] [id number] * (ABNORMAL) C DIFFICILE GDH AG AND TOXIN A AND B (02/11/2025 11:33 AM CDT) Only the most recent of2 resultswithin the time period is included. Pathologist [facility] C difficile GDH antigen & toxin A/B INDETERMI BRAYDON(A) NEGATIVE 02/12/2025 6:19 AM CDT [facility] Stool STOOL SPECIMEN / Unknown Collection / Unknown 02/11/2025 11:33 AM CDT 02/11/2025 11:44 AM CDT Narrative [facility] - 02/12/2025 6:19 AM CDT Indeterminate based on C. difficile toxin and GDH antigen testing. Confirmatory testing by PCR will be performed. Porsche Ugarte MD LAB - MICROBIOLOGY ORDERABLE S Final Result Performing Organization Address City/[facility] Co de Phone Number [facility] [address] [place] [address], [facility] [phone] * (ABNORMAL) C DIFFICILE BY PCR (02/11/2025 11:33 AM CDT) C difficile Toxin B Gene POSITIVE for C difficile toxin B gene(A) NEGATIVE for C difficile toxin B gene, Invalid 02/11/2025 11:30 PM CDT [facility] Stool STOOL SPECIMEN / Unknown Collection / Unknown 02/11/2025 11:33 AM CDT 02/11/2025 11:44 AM CDT Narrative [facility] - 02/11/2025 11:30 PM CDT Toxigenic C. difficile present; however toxin was not detected by EIA. Patient may be a carrier, or toxin is below the detection level. Therapy should be considered only in conjunction with clinical history. Porsche Ugarte MD LAB - MICROBIOLOGY ORDERABLE S Final Result Performing Organization Address [facility] de Phone Number [facility] [address] [place] [address], [facility] [phone] * MAGNESIUM BLOOD (02/11/2025 2:33 AM CDT) Only the most recent of10 resultswithin the time period is included. Pathologist [facility] Magnesium 2.2 1.6 - 2.6 mg/dL 02/11/2025 4:55 AM CDT [facility] Blood BLOOD SPECIMEN / Unknown Lab Venipuncture / Unknown 02/11/2025 2:33 AM CDT 02/11/2025 3:16 AM CDT Cynthia Ibarra PA-C LAB - CHEMISTRY ORDERABLES Final Result Performing Organization Address City/[facility]/ZIP Co de Phone Number [facility] [address] [place] [address] * CARDIAC EKG ORDER (02/10/2025 5:22 PM CDT) Narrative 02/10/2025 5:22 PM CDT Ordered by an unspecified provider. Scanned Document CARDIAC SERVICES ORDERABLES Fin al Result * PHOSPHORUS BLOOD (02/10/2025 3:32 AM CDT) Only the most recent of9 resultswithin the time period is included. Phosphorus 2.9 2.5 - 4.5 mg/dL 02/10/2025 4:27 AM CDT [facility] Blood BLOOD SPECIMEN / Unknown Lab Venipuncture / Unknown 02/10/2025 3:32 AM CDT 02/10/2025 3:56 AM CDT Caro Alfaro DO LAB - CHEMISTRY ORDERABLES Fin al Result Performing Organization Address [facility] de Phone Number [facility] [address] [place] [phone] * (ABNORMAL) LIPASE BLOOD (02/10/2025 3:32 AM CDT) Only the most recent of3 resultswithin the time period is included. Lipase 73(H) <60 U/L 02/10/2025 4:27 AM CDT [facility] Blood BLOOD SPECIMEN / Unknown Lab Venipuncture / Unknown 02/10/2025 3:32 AM CDT 02/10/2025 3:56 AM CDT Caro Clau Alfaro DO LAB - CHEMISTRY ORDERABLES Fin al Result Performing Organization Address [facility] de Phone Number [facility] [address] [place] [phone] * CT ABDOMEN PELVIS W CONTRAST (02/09/2025 7:25 PM CDT) Anatomical Region Laterality Modality Abdomen, Pelvis Computed Tomogra phy 02/09/2025 7:46 PM CDT Impressions 02/09/2025 7:52 PM CDT IMPRESSION: 1.Hepatic cirrhosis with portal hypertension and moderate to large ascites in all 4 quadrants. 2.Circumferential wall thickening of the small bowel and gallbladder is due to ascites. > Interpreting Provider: Regan Redd MD on 02/09/2025 7:52 PM Narrative 02/09/2025 7:52 PM CDT PROCEDURE: CT ABDOMEN PELVIS W CONTRAST DATE/TIME OF EXAM: 02/09/2025 7:27 PM CLINICAL INFORMATION: None relevant/not provided if blank. Indication: R41.82: Altered mental status, unspecified altered mental status type CONTRAST: IOPAMIDOL 76 % IV SOLN:[address] ABDOMEN PELVIS WITH CONTRAST. HISTORY: R41.82: Altered mental status, unspecified altered mental status type. 34-year-old male presenting for altered mental state. Patient has history of alcoholic cirrhosis as well as hepatitis. Patient apparently has been 13 days without a drank. Patient did require transfer to [facility] where he had paracentesis and evaluated evaluation by hepatobiliary services. Patient did have paracentesis done then. Patient reports he does have some bloating in his abdomen reports some nausea generalized fatigue. Family reports he has not walking well has a decreased appetite. Reports he has been somewhat confused apparently confusing things like thinking his grandmother had some spaghetti instead of her car keys. Patient also has had multiple episodes of diarrhea previously had C diff but had negative testing at [facility]. COMPARISON: None TECHNIQUE: Spiral axial scanning and reconstructed coronal and sagittal imaging of the abdomen and pelvis are performed after intravenous contrast administration. Oral contrast was not used. Total of 100 mL of Isovue-370 contrast was used, intravenously. FINDINGS: There is nodularity of hepatic surface consistent with the known hepatic cirrhosis. Mild heterogeneous attenuation of the liver is noted without a discretely visible regenerating nodules or hepatic masses. There is evidence of portal hypertension with vascular collaterals around the gastroesophageal junction and mild enlargement of the spleen. The length of the spleen is 14.7 cm. No focal splenic lesion is identified. There is a moderate to large ascites in all 4 quadrants with the largest volume of fluid in the pelvis. Ascites accounts for circumferential wall thickening of the entire small bowel especially jejunum as well as circumferential wall thickening of the gallbladder. There is a 6 mm low attenuating left renal cortical lesion (series 3, image 82) which is too small to characterize. There is a simple cyst of the right kidney measuring 2.5 cm in diameter with a mean measured density of 20 Hounsfield units. Otherwise, the adrenal glands, kidneys, and pancreas are within normal limits. The gallbladder is otherwise unremarkable. There is no evidence of cholecystitis. No biliary or pancreatic ductal dilatation is identified. The aorta appears normal. There is no evidence of thrombosis in inferior vena cava, the iliac veins, hepatic veins or portal vein. The stomach, duodenum are within normal limits. The appendix is discretely visible in the right lower quadrant and there is no evidence of appendicitis.. The large bowel is normal in caliber and wall thickness, throughout. There is no diverticulosis or diverticulitis. The volume of stool is average. The urinary bladder wall thickness is normal for the degree of distention. The prostate is not enlarged. No abscess, lymphadenopathy or free air is identified. The imaged body wall is unremarkable. In the imaged portion of the chest, the gastroesophageal junction is normal and the imaged lung bases are aerated and clear, except for minimal dependent atelectasis of bilateral lower lobes. The heart is not enlarged. There is a small left pleural effusion. The bone window images are within normal limits. Procedure Note Regan Redd MD - 02/09/2025 PROCEDURE: CT ABDOMEN PELVIS W CONTRAST DATE/TIME OF EXAM: 02/09/2025 7:27 PM CLINICAL INFORMATION: None relevant/not provided if blank. Indication: R41.82: Altered mental status, unspecified altered mental status type CONTRAST: IOPAMIDOL 76 % IV SOLN:[address] ABDOMEN PELVIS WITH CONTRAST. HISTORY: R41.82: Altered mental status, unspecified altered mentalstatus type. 34-year-old male presenting for altered mental state. Patient has history of alcoholic cirrhosis as well as hepatitis. Patient apparentlyhas been 13 days without a drank. Patient did require transfer to [facility] where he had paracentesis and evaluated evaluation by hepatobiliary services. Patient did have paracentesis done then. Patient reports he does have some bloating in his abdomen reports some nausea generalized fatigue. Family reports he has not walking well has adecreased appetite. Reports he has been somewhat confused apparently confusingthings like thinking his grandmother had some spaghetti instead of her carkeys. Patient also has had multiple episodes of diarrhea previously had C diff but had negative testing at [facility]. COMPARISON: None TECHNIQUE: Spiral axial scanning and reconstructed coronal and sagittal imaging of the abdomen and pelvis are performed after intravenouscontrast administration. Oral contrast was not used. Total of 100 mL ofIsovue-370 contrast was used, intravenously. FINDINGS: There is nodularity of hepatic surface consistent with the known hepatic cirrhosis. Mild heterogeneous attenuation of the liver is noted withouta discretely visible regenerating nodules or hepatic masses. There is evidence of portal hypertension with vascular collaterals around the gastroesophageal junction and mild enlargement of the spleen. The lengthof the spleen is 14.7 cm. No focal splenic lesion is identified. There is a moderate to large ascites in all 4 quadrants with the largest volume of fluid in the pelvis. Ascites accounts for circumferential wall thickening of the entire small bowel especially jejunum as well as circumferential wall thickening of the gallbladder. There is a 6 mm low attenuating left renal cortical lesion (series 3,image 82) which is too small to characterize. There is a simple cyst of theright kidney measuring 2.5 cm in diameter with a mean measured density of 20 Hounsfield units. Otherwise, the adrenal glands, kidneys, and pancreas are within normal limits. The gallbladder is otherwise unremarkable. There is no evidenceof cholecystitis. No biliary or pancreatic ductal dilatation is identified. The aorta appears normal. There is no evidence of thrombosis in inferior vena cava, the iliac veins, hepatic veins or portal vein. The stomach, duodenum are within normal limits. The appendix isdiscretely visible in the right lower quadrant and there is no evidence of appendicitis.. The large bowel is normal in caliber and wall thickness, throughout. There is no diverticulosis or diverticulitis. The volume of stool is average. The urinary bladder wall thickness is normal for the degree ofdistention. The prostate is not enlarged. No abscess, lymphadenopathy or free air is identified. The imaged body wall is unremarkable. In the imaged portion of the chest, the gastroesophageal junction isnormal and the imaged lung bases are aerated and clear, except for minimal dependent atelectasis of bilateral lower lobes. The heart is notenlarged. There is a small left pleural effusion. The bone window images are within normal limits. IMPRESSION: 1.Hepatic cirrhosis with portal hypertension and moderate to largeascites in all 4 quadrants. 2.Circumferential wall thickening of the small bowel and gallbladder isdue to ascites. > Interpreting Provider: Regan Redd MD on 02/09/2025 7:52 PM Enrrique Jerry DO CT ORDERABLES Final R esult * CT HEAD WO CONTRAST (02/09/2025 7:25 PM CDT) Anatomical Region Laterality Modality Head Computed Tomogra phy 02/09/2025 7:44 PM CDT Impressions 02/09/2025 7:46 PM CDT IMPRESSION: Within normal limits. No acute intracranial hemorrhage, CT evidence of an acute infarction, mass effect or midline shift is identified. > Interpreting Provider: Regan Redd MD on 02/09/2025 7:46 PM Narrative 02/09/2025 7:46 PM CDT PROCEDURE: CT HEAD WO CONTRAST DATE/TIME OF EXAM: 02/09/2025 7:25 PM CLINICAL INFORMATION: None relevant/not provided if blank. Indication: R41.82: Altered mental status, unspecified altered mental status type CT OF THE HEAD WITHOUT CONTRAST HISTORY: R41.82: Altered mental status, unspecified altered mental status type. 34-year-old male presenting for altered mental state. Patient has history of alcoholic cirrhosis as well as hepatitis. Patient apparently has been 13 days without a drank. Patient did require transfer to [facility] where he had paracentesis and evaluated evaluation by hepatobiliary services. Patient did have paracentesis done then. Patient reports he does have some bloating in his abdomen reports some nausea generalized fatigue. Family reports he has not walking well has a decreased appetite. Reports he has been somewhat confused apparently confusing things like thinking his grandmother had some spaghetti instead of her car keys. Patient also has had multiple episodes of diarrhea previously had C diff but had negative testing at [facility]. COMPARISON: None TECHNIQUE: CT of the head was performed without contrast according to standard protocol. This examination was subjected to Viz. ICH. FINDINGS: No acute intra- or extra-axial hemorrhage is identified. The basilar cisterns are patent. No mass effect or midline shift is seen. The guzman-white matter differentiation is normal. The ventricles are of normal size, shape, and morphology. No visible white matter changes, contusion or infarction. The orbital contents are normal and symmetric. The paranasal sinuses, and mastoid air cells are clear . No acute fracture is identified. There is no visible scalp swelling/hematoma. Procedure Note Regan Redd MD - 02/09/2025 PROCEDURE: CT HEAD WO CONTRAST DATE/TIME OF EXAM: 02/09/2025 7:25 PM CLINICAL INFORMATION: None relevant/not provided if blank. Indication: R41.82: Altered mental status, unspecified altered mental status type CT OF THE HEAD WITHOUT CONTRAST HISTORY: R41.82: Altered mental status, unspecified altered mentalstatus type. 34-year-old male presenting for altered mental state. Patient has history of alcoholic cirrhosis as well as hepatitis. Patient apparentlyhas been 13 days without a drank. Patient did require transfer to [facility] where he had paracentesis and evaluated evaluation by hepatobiliary services. Patient did have paracentesis done then. Patient reports he does have some bloating in his abdomen reports some nausea generalized fatigue. Family reports he has not walking well has adecreased appetite. Reports he has been somewhat confused apparently confusingthings like thinking his grandmother had some spaghetti instead of her carkeys. Patient also has had multiple episodes of diarrhea previously had C diff but had negative testing at [facility]. COMPARISON: None TECHNIQUE: CT of the head was performed without contrast according to standard protocol. This examination was subjected to Viz. ICH. FINDINGS: No acute intra- or extra-axial hemorrhage is identified. The basilar cisterns are patent. No mass effect or midline shift is seen. The guzman-white matter differentiation is normal. The ventricles are of normal size, shape, and morphology. No visiblewhite matter changes, contusion or infarction. The orbital contents are normal and symmetric. The paranasal sinuses,and mastoid air cells are clear . No acute fracture is identified. There isno visible scalp swelling/hematoma. IMPRESSION: Within normal limits. No acute intracranial hemorrhage, CT evidence ofan acute infarction, mass effect or midline shift is identified. > Interpreting Provider: Regan Redd MD on 02/09/2025 7:46 PM Enrrique Jerry DO CT ORDERABLES Final R esult * (ABNORMAL) URINALYSIS REFLEX TO MICROSCOPIC NO CULTURE (02/09/2025 7:08 PM CDT) Only the most recent of2 resultswithin the time period is included. Color UA [place](A) Yellow, Straw 02/09/2025 7:16 PM CDT [facility] Clarity UA Turbid(A) Clear 02/09/2025 7:16 PM CDT [facility] Glucose UA Normal Normal 02/09/2025 7:16 PM CDT [facility] Bilirubin UA 4+(A) Negative 02/09/2025 7:16 PM CDT [facility] Ketone UA Negative Negative 02/09/2025 7:16 PM CDT [facility] Specific [place] UA 1.020 1.005 - 1.030 02/09/2025 7:16 PM CDT [facility] Blood UA 1+(A) Negative 02/09/2025 7:16 PM CDT [facility] pH UA 6.5 5.0 - 8.0 02/09/2025 7:16 PM CDT [facility] Protein UA Trace(A) Negative 02/09/2025 7:16 PM CDT [facility] Urobilinogen UA Normal Normal mg/dL 025 7:16 PM CDT [facility] Nitrite UA Negative Negative 02/09/2025 7:16 PM CDT [facility] Leukocyte Esterase UA Negative Negative 02/09/2025 7:16 PM CDT [facility] RBC UA 11-20(A) 0 - 5 # /hpf 02/09/2025 7:16 PM CDT [facility] WBC UA 0-5 0 - 5 # /hpf 02/09/2025 7:16 PM CDT [facility] Bacteria UA Trace(A) None Seen 02/09/2025 7:16 PM CDT [facility] Squamous Epithelial Cells 0-2 0 - 5 /hpf 02/09/2025 7:16 PM CDT [facility] Urine URINE SPECIMEN OBTAINED BY CLEAN CATCH PROCEDURE / Unknown 02/09/2025 7:08 PM CDT 02/09/2025 7:08 PM CDT [facility]ATORY - 02/09/2025 7:16 PM CDT us Enrrique [place] Birch DO LAB - URINALYSIS ORDERA BLES Final Result [facility] [address] [place] [address] * XR Chest 1Vw Portable (02/09/2025 6:53 PM CDT) Anatomical Region Laterality Modality Chest Radiographic Nora ging 02/09/2025 6:55 PM CDT Impressions 02/09/2025 6:56 PM CDT IMPRESSION: No acute process. > Interpreting Provider: Regan Redd MD on 02/09/2025 6:56 PM Narrative 02/09/2025 6:56 PM CDT PROCEDURE: XR CHEST 1VW PORTABLE DATE/TIME OF EXAM: 02/09/2025 6:53 PM CLINICAL INFORMATION: None relevant/not provided if blank. Indication: R53.83: Fatigue, unspecified type CHEST, ONE VIEW AP PORTABLE HISTORY: R53.83: Fatigue, unspecified type COMPARISON: None FINDINGS: The lung volumes are symmetrically low suggestive of a poor inspiratory effort. This accounts for crowding of bronchovascular markings. The heart size is normal. The mediastinal silhouette is normal. The pulmonary vasculature is within normal limits. The lungs are clear. There is no evidence of pleural effusion. No pneumothorax is seen. Procedure Note Regan Redd MD - 02/09/2025 PROCEDURE: XR CHEST 1VW PORTABLE DATE/TIME OF EXAM: 02/09/2025 6:53 PM CLINICAL INFORMATION: None relevant/not provided if blank. Indication: R53.83: Fatigue, unspecified type CHEST, ONE VIEW AP PORTABLE HISTORY: R53.83: Fatigue, unspecified type COMPARISON: None FINDINGS: The lung volumes are symmetrically low suggestive of a poor inspiratory effort. This accounts for crowding of bronchovascular markings. Theheart size is normal. The mediastinal silhouette is normal. The pulmonary vasculature is within normal limits. The lungs are clear. There is no evidence of pleural effusion. No pneumothorax is seen. IMPRESSION: No acute process. > Interpreting Provider: Regan Redd MD on 02/09/2025 6:56 PM us Capri Preston PA-C DIAGNOSTIC IMAGING OR DERABLES Final Result * EKG 12-LEAD (02/09/2025 5:42 PM CDT) Only the most recent of2 resultswithin the time period is included. [facility] Ventricular Rate 82 BPM [facility] Atrial Rate 82 BPM [facility] P-R Interval 160 ms [facility] QRS Duration ms 108 ms [facility] Q-T Interval ms 426 ms [facility] QTC Calculation (Bezet) 497 ms [facility] MUSE Calculated P [place] 24 degrees [facility] MUSE Calculated R [place] 1 degrees [facility] MUSE Calculated T [place] 38 degrees [facility] Interpretation EKG SINUS RHYTHM WITH OCCASIONAL PREMATURE VENTRICULAR COMPLEXES PROLONGED QT ABNORMAL ECG WHEN COMPARED WITH ECG OF 29-JAN-2025 05:38, BORDERLINE CRITERIA FOR LATERAL INFARCT ARE NO LONGER PRESENT Confirmed by Omar Peter MD ([id number]) on 02/10/2025 6:49:17 AM [facility] 02/09/2025 5:42 PM CDT 02/10/2025 6:49 AM CDT us Capri Preston PA-C ECG ORDERABLES Edite d Result - Final [facility] * TROPONIN-I HIGH SENSITIVE (02/09/2025 5:12 PM CDT) [facility] Troponin I High Sensitive <3 <=35 ng/L 02/09/2025 5:38 PM CDT [facility] Blood BLOOD SPECIMEN / Unknown Venipuncture / Unknown 02/09/2025 5:12 PM CDT 02/09/2025 5:15 PM CDT us Capri Preston PA-C LAB - CHEMISTRY ORDER SANDRA Final Result [facility] [address] [place] [address] * LACTIC ACID BLOOD REFLEX TO REPEAT (02/09/2025 5:12 PM CDT) [facility] Lactic Acid 1.387 <=2 mmol/L 02/09/2025 5:33 PM CDT [facility] Blood BLOOD SPECIMEN / Unknown Venipuncture / Unknown 02/09/2025 5:12 PM CDT 02/09/2025 5:15 PM CDT Harlan Camacho PA-C LAB - CHEMISTRY ORDERABLE S Final Result Performing Organization Address [facility]/ZIP Co de Phone Number [facility] [address] [place] [phone] * (ABNORMAL) PT-INR (02/09/2025 5:12 PM CDT) Only the most recent of5 resultswithin the time period is included. [facility] PT 22.6(H) 12.1 - 14.8 sec 02/09/2025 5:26 PM CDT [facility] INR 2.0(H) 0.9 - 1.1 02/09/2025 5:26 PM CDT [facility] Blood BLOOD SPECIMEN / Unknown Venipuncture / Unknown 02/09/2025 5:12 PM CDT 02/09/2025 5:15 PM CDT Narrative [facility] - 02/09/2025 5:26 PM CDT Conventional Warfarin Anticoagulant Therapy: INR Reference Range: 2.0-3.0 Intensive Warfarin Anticoagulant Therapy: INR Reference Range: 2.5-3.5 Harlan Cmaacho PA-C LAB - COAGULATION ORDERAB LES Final Result Performing Organization Address City/[facility] Co de Phone Number [facility] [address] [place] [phone] * (ABNORMAL) B-TYPE NATRIURETIC PEPTIDE (02/09/2025 5:12 PM CDT) [facility] BNP 311(H) <=100 pg/mL 02/09/2025 5:41 PM CDT [facility] Blood BLOOD SPECIMEN / Unknown Venipuncture / Unknown 02/09/2025 5:12 PM CDT 02/09/2025 5:15 PM CDT Narrative [facility] - 02/09/2025 5:41 PM CDT A cutoff of 100 pg/mL has been demonstrated to provide the maximal combination of sensitivity, specificity, and negative predictive value for contributing to the diagnosis of congestive heart failure (CHF) only. A B-Type Natriuretic Peptide (BNP) value greater than or equal to 100 pg/mL is consistent with a diagnosis of CHF in the appropriate clinical setting. False positive results are more common in females greater than 75 years of age. Blood concentrations of natriuretic peptides may also be elevated in patients with myocardial infarction and in patients who are candidates for or are undergoing renal dialysis. Capri Preston PA-C LAB - CHEMISTRY ORDER SANDRA Final Result Performing Organization Address City/[facility]/ZIP Co de Phone Number [facility] [address] [place] [address] * (ABNORMAL) BILIRUBIN DIRECT (01/31/2025 7:59 AM CDT) Bilirubin Conjugated 19.9(H) 0.1 - 0.5 mg/dL 01/31/2025 1:07 PM CDT [facility] Blood BLOOD SPECIMEN / Unknown Lab Venipuncture / Unknown 01/31/2025 7:59 AM CDT 01/31/2025 8:38 AM CDT Result [facility] Jamie TIDWELL LAB - CHEMISTRY ORDERABL ES Final Result Performing Organization Address City/[facility]/ZIP Co de Phone Number [address] [address] [phone] * (ABNORMAL) LDH BLOOD (01/29/2025 3:44 PM CDT) [facility] Total 318(H) 125 - 243 Units/L 01/29/2025 4:44 PM CDT [facility] Blood BLOOD SPECIMEN / Unknown Venipuncture / Unknown 01/29/2025 3:44 PM CDT 01/29/2025 3:50 PM CDT us Anders Dean MD LAB - CHEMISTRY ORDERABLES Final Result Performing Organization Address [facility]/ZIP Co de Phone Number [facility] [address] [place] [address], [facility] [phone] * PROTEIN BODY FLUID (01/29/2025 3:38 PM CDT) Protein Fluid 1.1 Not Established For Fluids g/dL 01/29/2025 4:31 PM CDT [facility] Fluid Type Peritoneal Fluid 01/29/2025 4:31 PM CDT [facility] Fluid PERITONEAL FLUID / Unknown Collection / Unknown 01/29/2025 3:38 PM CDT 01/29/2025 3:48 PM CDT Narrative [facility] - 01/29/2025 4:31 PM CDT The analytical performance of this test has been independently validated by the laboratory. A reference range has not been established for this fluid. Comparison of this result with the concentration in blood, serum or plasma is recommended. Anders Dean MD LAB - BODY FLUID ORDERABLES Della l Result Performing Organization Address [facility]/ZIP Co de Phone Number [place] [phone] [place] [address], [facility] [phone] * ALBUMIN BODY FLUID (01/29/2025 3:38 PM CDT) Pathologist [facility] Albumin Fluid 0.5 g/dL 01/29/2025 4:31 PM CDT [facility] Fluid Type Peritoneal Fluid 01/29/2025 4:31 PM CDT [facility] Fluid PERITONEAL FLUID / Unknown Collection / Unknown 01/29/2025 3:38 PM CDT 01/29/2025 3:48 PM CDT Narrative [facility] - 01/29/2025 4:31 PM CDT The analytical performance of this test has been independently validated by the laboratory. A reference range has not been established for this fluid. Comparison of this result with the concentration in blood, serum or plasma is recommended. Anders Dean MD LAB - BODY FLUID ORDERABLES Della l Result [address] [address], [facility] [phone] * LDH BODY FLUID (01/29/2025 3:38 PM CDT) [facility] LD Fluid 88 Not Established For Fluids Units/L 01/29/2025 4:40 PM CDT [facility] Fluid Type Peritoneal Fluid 01/29/2025 4:40 PM CDT [facility] Fluid PERITONEAL FLUID / Unknown Collection / Unknown 01/29/2025 3:38 PM CDT 01/29/2025 3:48 PM CDT Narrative [facility] - 01/29/2025 4:40 PM CDT The analytical performance of this test has been independently validated by the laboratory. A reference range has not been established for this fluid. Comparison of this result with the concentration in blood, serum or plasma is recommended. Anders Dean MD LAB - BODY FLUID ORDERABLES Della l Result Performing Organization Address [facility] Co de Phone Number [address] [address], [facility] [phone] * GLUCOSE BODY FLUID (01/29/2025 3:38 PM CDT) [facility] Glucose Fluid 129 Not Established For Fluids mg/dL 01/29/2025 4:31 PM CDT [facility] Fluid Type Peritoneal Fluid 01/29/2025 4:31 PM CDT [facility] Fluid PERITONEAL FLUID / Unknown Collection / Unknown 01/29/2025 3:38 PM CDT 01/29/2025 3:48 PM CDT Narrative [facility] - 01/29/2025 4:31 PM CDT The analytical performance of this test has been independently validated by the laboratory. A reference range has not been established for this fluid. Comparison of this result with the concentration in blood, serum or plasma is recommended. Anders Dean MD LAB - BODY FLUID ORDERABLES Della l Result Performing Organization Address [facility]/ZIP Co de Phone Number [address] [address], [facility] [phone] * DIFFERENTIAL MANUAL FLUID (01/29/2025 3:38 PM CDT) Fluid Source Peritoneal 01/29/2025 5:54 PM CDT [facility] Body Fluid Total Cell Count 100 x10E6/L 01/29/2025 5:54 PM CDT [facility] Neutrophils Fluid Percent 54 % 01/29/2025 5:54 PM CDT [facility] Lymphocytes Fluid Percent 22 % 01/29/2025 5:54 PM CDT [facility] Macrophages Fluid Percent 2 % 01/29/2025 5:54 PM CDT [facility] Mesothelial Cells Fluid Percent 22 % 01/29/2025 5:54 PM CDT [facility] Fluid PERITONEAL FLUID / Unknown Collection / Unknown 01/29/2025 3:38 PM CDT 01/29/2025 3:50 PM CDT [facility] - 01/29/2025 5:54 PM CDT No reference ranges established for body fluid differential cell counts. The test results must be integrated into the clinical context for interpretation. us Anders Dean MD LAB - BODY FLUID ORDERABLES Della charles Result [address] [address], [facility] [phone] * CELL COUNT W DIFFERENTIAL FLUID (01/29/2025 3:38 PM CDT) Fluid Source Peritoneal 01/29/2025 5:54 PM CDT [facility] Fluid Appearance SLIGHTLY HAZY 01/29/2025 5:54 PM CDT [facility] Fluid Color YELLOW 01/29/2025 5:54 PM CDT [facility] Total Nucleated Cells Fluid 70 Reference Range Not Established x10E6/L 01/29/2025 5:54 PM CDT [facility] RBC Count Fluid <2,000 Reference Range Not Established x10E6/L 01/29/2025 5:54 PM CDT [facility] Fluid PERITONEAL FLUID / Unknown Collection / Unknown 01/29/2025 3:38 PM CDT 01/29/2025 3:50 PM CDT Narrative [facility] - 01/29/2025 5:54 PM CDT No reference ranges established for body fluid cell counts. Any reference ranges provided are derived from published literature. The test results must be integrated into the clinical context for interpretation. Anders Dean MD LAB - BODY FLUID ORDERABLES Della charles Result [facility] [address] [place] [address], [facility] [phone] * CYTOLOGY NON-BILINGUAL TEACHER ASSISTANT PANEL (STL) (01/29/2025 3:36 PM CDT) Case Report Medical Cytology Report Case: [id number] Authorizing Provider: Anders Dean MD Collected: 01/29/2025 03:36 PM Ordering Location: [facility] ICU Received: 01/29/2025 04:00 PM Pathologist: Ronel Freeman MD Specimen: Peritoneal Fluid 02/03/2025 9:45 AM CDT [facility] Specimen Adequacy Adequate cellularity for evaluation. 02/03/2025 9:45 AM CDT [facility] Final Diagnosis Peritoneal fluid, cytology: - Negative for malignant cells - Specimen consists of reactive mesothelial cells, and rare mixed acute and chronic inflammatory cells 02/03/2025 9:45 AM [facility] at 0945 CDT Clinical History Ascites 02/03/2025 9:45 AM T [facility] Gross Description 1 Pap stained Thin Prep slide and 1 cell block H&E from 45 cc of yellow, clear fluid 02/03/2025 9:[facility] 02/03/2025 9:45 AM T [facility] Disclaimer The performance characteristics of all immunohistochemical and indirect immunofluorescence stains (if any) cited in this report were determined by the Histopathology Laboratory of [facility]. Some of these tests rely on the use of analyte-specific reagents and are subject to specific labeling requirements by the US Food and Drug Administration. Such tests were developed by the Histology Laboratory of [facility] and have not been cleared or approved by the FDA. The FDA has determined that such clearance and approval is not necessary. These tests are used for clinical purposes and should not be regarded as investigational or for research. This laboratory is certified under the Clinical Laboratory Improvement Amendments (CLIA) as qualified to perform high complexity clinical laboratory testing. This case has been personally reviewed and interpreted by the attending (teaching) pathologist. 02/03/2025 9:45 AM CDT [facility] Embedded Images 02/03/2025 9:45 AM CDT [facility] Pathology/Cytolo gy PERITONEAL FLUID / Unknown Collection / Unknown 01/29/2025 3:36 PM CDT 01/29/2025 4:00 PM CDT Anders Dean MD LAB - PATHOLOGY/CYTOLOGY ORDERAB LES Final Result Performing Organization Address [facility] Co de Phone Number [facility] [address] [place] [address], [facility] [phone] * CULTURE FLUID+GRAM STAIN (01/29/2025 3:36 PM CDT) Culture No growth [place] 02/03/2025 3:27 PM CDT [facility] Gram Stain No organisms seen 025 3:27 PM CDT [facility] Gram Stain Rare Polymorphonuclear cells 02/03/2025 3:27 PM CDT [facility] Other PERITONEAL FLUID / Unknown Collection / Unknown 01/29/2025 3:36 PM CDT 01/29/2025 3:49 PM CDT Narrative [facility] - 02/03/2025 3:27 PM CDT Body fluid received in blood culture bottles will be evaluated for aerobic and anaerobic growth. Separate anaerobic culture order has been cancelled as a duplicate order. Anders Dean MD LAB - MICROBIOLOGY ORDERABLES Fi nal Result Performing Organization Address City/[facility]/ZIP Co de Phone Number [facility] [address] [place] [address], [facility] [phone] * (ABNORMAL) BASIC METABOLIC PANEL (CALCIUM TOTAL) (01/29/2025 2:29 PM CDT) BUN <5(L) 7 - 26 mg/dL 01/29/2025 3:04 PM [facility] Creatinine 0.61(L) 0.71 - 1.16 mg/dL 01/29/2025 3:04 PM [facility] Sodium 139 136 - 145 mmol/L 01/29/2025 3:04 PM [facility] Potassium 2.8(L) 3.5 - 4.5 mmol/L 01/29/2025 3:04 PM [facility] Chloride 109(H) 98 - 107 mmol/L 01/29/2025 3:04 PM [facility] CO2 22 22 - 29 mmol/L 01/29/2025 3:04 PM [facility] Glucose 121(H) 70 - 99 mg/dL 01/29/2025 3:04 PM [facility] Calcium 6.9(L) 8.4 - 10.2 mg/dL 01/29/2025 3:04 PM [facility] Anion Gap 8 6 - 16 01/29/2025 3:04 PM [facility] BUN/Creatinine Ratio <8 7 - 23 01/29/2025 3:04 PM [facility] Osmolality Calculated <287 275 - 295 mOsm/kg 01/29/2025 3:04 PM [facility] eGFR by CKD-EPI >90 >=90 mL/min/1.7 3 m2 01/29/2025 3:04 PM [facility] Comment:Estimated Glomerular Filtration Rate (eGFR) calculated using the CKD-EPI Creatinine Equation (2020), per the National Kidney Foundation and [employer] Society of Nephrology recommendations. 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
--- OUTSIDE RECORDS SUMMARY | 2025-03-16 08:16 | XMS_ITS | Clinical Summary ---
Author Organization [facility] Address [address] [place] [address] Phone Care Team Providers Care Director Of Environmental Services Name Role Phone Sarai Napoles N ANA CARO Primary Care Provider [phone] Allergies No known active allergies Medications ondansetron (ZOFRAN-ODT) 4 MG TABLET DISPERSIBLEIndicati ons:Alcohol abuse Take 1 Tablet by mouth every 8 hours as needed for Nausea - 1st line. 10 Tablet 5 Active Dguwz-4-zuws Ethyl Esters 1 g Capsule Take 4 g by mouth. 5 Active busPIRone (BUSPAR) 5 MG Tablet Take 5 mg by mouth. 5 Active thiamine (VITAMIN B1) 100 MG Tablet Take 100 mg by mouth daily. 5 Active carvedilol (COREG) 6.25 MG Tablet Take 6.25 mg by mouth daily. 5 Active Icosapent Ethyl 1 g Capsule Take 2 Capsules by mouth. 5 Active losartan (COZAAR) 25 MG Tablet Take 25 mg by mouth daily. 5 Active Lfmwt-0-xdtg Ethyl Esters 1 g Capsule Take 4 g by mouth. 5 Active omeprazole (PriLOSEC) 40 MG CAPSULE DELAYED RELEASE Take 40 mg by mouth daily. 5 Active folic acid (FOLVITE) 1 MG Tablet Take 1,000 mcg by mouth daily. Active Lactulose Encephalopathy 10 GM/15ML Solution Take 20 g by mouth 3 times daily. 5 Active acamprosate (CAMPRAL) 333 MG Tablet Delayed Response Take 666 mg by mouth 3 times daily. Active Active Problems No known active problems Encounters Date Type Department Care Team Description 03/08/2025 Telephone [facility] [address] [place] [phone] Sarai Napoles, VANIA, GLOBAL MARKETING COORDINATOR Advice Only; Medication Management 01/04/2025 4:15 PM CDT Office Visit [facility] [place], [place] [address] [place] [address] Sarai Napoles APRN, GLOBAL MARKETING COORDINATOR Alcohol abuse (Primary Dx); Anxiety; Primary hypertension; Gastroesophageal reflux disease without esophagitis Discharge Disposition: Discharged to home or Selfcare 01/04/2025 Travel 12/14/2024 1:00 PM CDT Office Visit [facility] [place], [place] [address] [place] [address] Sarai Napoles, VANIA, GLOBAL MARKETING COORDINATOR Anxiety (Primary Dx); Gastroesophageal reflux disease without esophagitis; Alcohol abuse; Depression, unspecified depression type; Primary hypertension Discharge Disposition: Discharged to home or Selfcare 12/14/2024 Travel from Last 3 Months Immunizations Immunization Administration Dates Next Due MMR Vaccine 01/09/1996,08/04/1991 RABIES - IM Fibroblast Culture Vaccine TDAP Vaccine 09/09/2020,06/10/2016,01/19/2005 Family History Medical History Relation Name Comments Diabetes Father Hypertension Father Diabetes Maternal Grandmother fatty liver Maternal Grandmother Parkinsonism Paternal Grandfather Lung Cancer Paternal Grandmother Relation Name Status Comments Father Alive Maternal Grandmother Alive Mother Alive Paternal Grandfather Paternal Grandmother Social History Tobacco Use Types Packs/Day Years Used Date Smoking Tobacco: Never Smokeless Tobacco: Never Tobacco Cessation:Counseling Given: No Alcohol Use Standard Drinks/Week Comments Yes 0 (1 standard drink = 0.6 oz pur e alcohol) withdrawal PHQ-2 Answer Date Recorded Total Score - Questions 1-9 17 09/09 Sexually Active Control Partners Comments Yes Sex and Gender Information Value Date Recorded Sex Assigned at Not on file Legal Sex Male 11:44 PM CDT Gender Identity Not on file Sexual Orientation Not on file Last Filed Vital Signs Vital Sign Reading Time Taken Comments Blood Pressure 128/82 01/04/2025 4:14 PM CDT Pulse 133 01/04/2025 4:14 PM CDT Temperature 36.3 C (97.4 F) 01/04/2025 4:14 PM CDT Respiratory Rate 17 01/04/2025 4:14 PM CDT Oxygen Saturation 96% 01/04/2025 4:14 PM CDT Inhaled Oxygen Concentration - - Weight 84.6 kg (186 lb 8 oz) 01/04/2025 4:14 PM CDT Height 175.3 cm (5' 9) 01/04/2025 4:14 PM CDT Body Mass Index 27.54 01/04/2025 4:14 PM CDT Plan of Treatment Health Maintenance Due Date Last Done Comments Hepatitis B Immunization (1 of 3 - 19+ 3-dose series) 2009 Human Papillomavirus (HPV) Immunization (1 - 3-dose SCDM series) 2017 Influenza Immunization (#1) 2025 SARS-COV-2 Immunization (2024- season) 2025 04/15/2021, 03/25/2021 Td Immunization Every 10 Yea rs (Adults With 1 Tdap) 09/09/2030 09/09/2020, 06/10/2016, 01/19/2005 Respiratory Syncytial Virus (RSV) Immunization (Adult) (1 - 1-dose 75+ series) 2065 TdaP Immunization Discontinued 09/09/2020, 06/10/2016, 01/19/2005 Hepatitis C Virus (HCV) Screening Completed 11/24/2024 Meningococcal Immunization (ACWY) Aged Out No longer eligible based on patient's age to complete this topic Pneumococcal Immunization Combined Aged Out No longer eligible based on patient's age to complete this topic Rotavirus Immunization Aged Out No lo nger eligible based on patient's age to complete this topic Insurance [facility] Care Teams Director Of Environmental Services Relationship Specialty Start Date End Date Yesika September N, HEAVY TRUCK DRIVER, ANA [address] [place] [address] PCP - General Advanced Practice Nurse 10/05/24
--- OUTSIDE RECORDS SUMMARY | 2025-03-16 08:16 | XMS_ITS | Patient Health Record ---
Author Organization [facility] [employer] Address [address] [facility] [address] [place] [address] Care Team Providers Care Concrete Block Mason Name Role Phone Nancy Haque Unavailable [phone] Reason For Referral No Information Medications Medication SIG (Take, Route, Frequency, Duration) Notes Start Date End Date Status Cholecalciferol 1.25 MG (56208 UT) Capsule Oral Active Pantoprazole Sodium 40 MG Tablet Delayed Release Oral Activ e Vitamin B-1 100 mg Tablet Oral Active chlordiazePOXIDE HCl 10 MG Capsule Oral Active Folic Acid 1 MG Tablet Oral Active chlordiazePOXIDE HCl 25 MG Capsule Oral Active Losartan Potassium 25 MG Tablet Oral Active Sucralfate 1 GM Tablet Oral Active busPIRone HCl 5 MG Tablet Oral Active Plan Of Treatment No Information Insurance Providers Payer Name Payer Address Payer Phone Subscriber Number Group Number Insured Name Patient Relationship to Insured Coverage Start Date Coverage End Date r [address] [address] [place] [address] [id number] MATT PAGAN Self - patient is the insured
--- OUTSIDE RECORDS SUMMARY | 2025-03-16 08:16 | XMS_ITS | Encounter Summary ---
Author Organization [facility] Address [address] [place] [address] Phone Care Team Providers Care Fruit Thinner Machine Operator Name Role Phone Sarai Napoles APRN, CNP Primary Care Provider [phone] Reason for Visit * Reason Onset Date Comments Advice Only 03/08/2025 Medication Management 03/08/2025 Encounter Details Date Type Department Care Team (Late st Contact Info) Description 03/08/2025 Telephone [facility] Call Center [address] [place] [phone] Yesika September Natasha, VANIA, AUTO TRANSMISSION MECHANIC [address] [address] Advice Only; Medication Management Social History Tobacco Use Types Packs/Day Years Used Date Smoking Tobacco: Never Smokeless Tobacco: Never Alcohol Use Standard Drinks/Week Comments Yes 0 (1 standard drink = 0.6 oz pur e alcohol) withdrawal PHQ-2 Answer Date Recorded Total Score - Questions 1-9 17 09/09 Sexually Active Control Partners Comments Yes Sex and Gender Information Value Date Recorded Sex Assigned at Not on file Legal Sex Male 11:44 PM CDT Gender Identity Not on file Sexual Orientation Not on file documented as of this encounter Miscellaneous Notes * Telephone Encounter - Miladys Myrick RN - 03/10/2025 12:07 PM CDT Situation: medication management Background: Patient's Aunt Joel Campos contacting PCP office. Person contacting is not listed as a personal community relations representative designee on the most recent form. Caller states she is trying to have patient's POA paperwork sent. Caller asking which medications are most pertinent for patient to take. Patient is in between insurances and some medications will be too expensive for patient. Assessment: See notes below. Recommendation: Asked caller if they have tried looking at [facility] for patient's medications at a discounted lee.Caller states they have not yet got on [facility] but they are going to do that. Caller would like to know which medications are most important for patient to take if patient cannot afford all medications. Please advise. Encounter routed to provider to notify. Discussed utilizing IPexperthart to: discuss if they would prefer a IPexperthart message or phone call response. Response is preferred via Phone Call. * Telephone Encounter - Sarai Napoles APRN, CNP - 03/10/2025 11:10 AM CDT Please reach out to patient and inform to take all medications. * Telephone Encounter - Stefanie Valle RN - 03/08/2025 4:22 PM CDT Situation: Medication refill Background: Joel, aunt contacting PCP office. No personal community relations representative designee form on file. Assessment: Patient currently does not have insurance due to loss of a job. Patient is waiting to hear about his application to state insurance. Patient is wanting to know recommendations for essential medications. Patient will need refills of icosapent, thiamine, pantoprazole (40 mg tablets, one daily), folic acid, spironolactone (50 mg tablet, one daily), furosemide (20 mg tablet, one daily), lactulose, omega 3 acid capsules, acamprosate 666 mg Patient wants to know which medications are absolutely essential to take out of all his medications. He wants to take all of them but worried about finances until his insurance gets approved. Some of the medication were prescribed by hospital doctors, please advise Recommendation: Patient is willing to come in to the office for a follow up appointment once insurance is approved.Aunt will call when they insurance gets approved Please advise, thank you! Encounter routed to provider to notify. documented in this encounter Plan of Treatment Not on file documented as of this encounter Visit Diagnoses Not on filedocumented in this encounter Additional Health Concerns Assessment Noted Time PHQ-9 Depression Total Score: 17 025 11:21 AM CDT documented as of this encounter Care Teams Fruit Thinner Machine Operator Relationship Specialty Start Date End Date Yesika September Natasha, POWDER LOADER, ANA [address] [place] [address] PCP - General Advanced Practice Nurse 10/05/24 documented as of this encounter
--- OUTSIDE RECORDS SUMMARY | 2025-03-16 08:16 | XMS_ITS | Clinical Summary ---
Author Organization [facility] [place] Address [address] [place] [address] Care Team Providers Care Production Sampler Name Role Phone Unavailable Primary Care Provider Unavailabl e Allergies No known active allergies Medications amLODIPine (NORVASC) 10 mg tablet Take 1 Tablet (10 mg) by mouth daily. 30 Tablet 1 0 Active valACYclovir (VALTREX) 1 gram tabletIndication s:Herpes infection TAKE 1 TABLET BY MOUTH EVERY DAY 30 Tablet 3 0 Active losartan (COZAAR) 25 mg tablet Take 25 mg by mouth daily. 5 Active omeprazole (PriLOSEC) 40 mg Capsule, Delayed Release(E.C.) Take 40 mg by mouth daily. 5 Active busPIRone (BUSPAR) 5 mg tablet Take 5 mg by mouth 3 times daily. 5 Active carvediloL (COREG) 6.25 mg tablet Take 1 Tablet (6.25 mg) by mouth every 12 hours. 60 Tablet 5 Active omega-3 acid ethyl esters (LOVAZA) 1 gram Capsule Take 4 Capsules (4 Grams) by mouth daily with breakfast. 120 Capsule 5 Active thiamine mononitrate (VITAMIN B-1) 100 mg tablet Take 1 Tablet (100 mg) by mouth daily. 30 Tablet 5 Active Active Problems Problem Noted Date Diagnosed Date Noncompliance 11/26/2024 Cardiomyopathy 11/24/2024 C. difficile colitis 11/24/2024 Alcoholic hepatitis 11/23/2024 Alcohol withdrawal syndrome without complication 11/23/2024 Encounters Date Type Department Care Team Description 03/09/2025 External Device Data [facility] ABSTRACTION Provider, Abstract 02/23/2025 External Device Data [facility]STRACTION Provider, Abstract 02/23/2025 External Device Data [facility]STRACTION Provider, Abstract 02/09/2025 External Device Data [facility]STRACTION Provider, Abstract 02/03/2025 External Device Data [facility]STRACTION Provider, Abstract 02/02/2025 External Device Data [facility] ABSTRACTION Provider, Abstract 02/02/2025 External Device Data [facility] ABSTRACTION Provider, Abstract 01/26/2025 External Device Data [facility] ABSTRACTION Provider, Abstract 01/13/2025 External Device Data [facility] ABSTRACTION Provider, Abstract 12/29/2024 External Device Data [facility] ABSTRACTION Provider, Abstract 12/29/2024 External Device Data [facility] ABSTRACTION Provider, Abstract 12/29/2024 External Device Data [facility] ABSTRACTION Provider, Abstract 12/23/2024 External Device Data [facility] ABSTRACTION Provider, Abstract 12/22/2024 External Device Data [facility] ABSTRACTION Provider, Abstract from Last 3 Months Immunizations Immunization Administration Dates Next Due (ADACEL/BOOSTRIX)(10 YR UP) TDAP VACCINE, 0.5ML, IM 06/10/2016 Family History Medical History Relation Name Comments Diabetes Father Unknown Maternal Grandfather Diabetes Maternal Grandmother Healthy Mother Parkinson's Disease Paternal Grandfather Lung Cancer Paternal Grandmother Relation Name Status Comments Father Alive Maternal Grandfather Other Maternal Grandmother Alive Mother Alive Paternal Grandfather Alive Paternal Grandmother Social History Tobacco Use Types Packs/Day Years Used Date Smoking Tobacco: Never Smokeless Tobacco: Never Alcohol Use Standard Drinks/Week Comments Yes 0 (1 standard drink = 0.6 oz pur e alcohol) 1 drink per day and weekends Feeling Safe Answer Date Recorded Are you in a relationship wi th someone who hurts you emotionally and/or physically? 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 Gender Identity Not on file Sexual Orientation Not on file Last Filed Vital Signs Vital Sign Reading Time Taken Comments Blood Pressure 121/83 11/26/2024 4:34 AM CDT Pulse 111 11/26/2024 4:34 AM CDT Temperature 36.5 C (97.7 F) 11/26/2024 4:34 AM CDT Respiratory Rate 17 11/26/2024 4:34 AM CDT Oxygen Saturation 100% 11/26/2024 4:34 AM CDT Inhaled Oxygen Concentration - - Weight 83.9 kg (185 lb) 11/23/2024 10:40 AM CDT Height 175.3 cm (5' 9) 11/23/2024 10:40 AM CDT Body Mass Index 27.32 11/23/2024 10:40 AM CDT Plan of Treatment Health Maintenance Due Date Last Done Comments HEPATITIS B VACCINES (1 of 3 - 19+ 3-dose series) 2009 HPV VACCINES (1 - 3-dose SCD M series) 2017 INFLUENZA VACCINE (#1) 2025 DTAP/TDAP/TD VACCINES (4 - T d or Tdap) 09/09/2030 09/09/2020, 06/10/2016, 01/19/2005 Insurance * Guarantor: [employer] Account Type Relation to Patient Date of Phone Billing Address Corporate Employer ATTN: SEAN NARVAEZ [address] [address] Advance Directives For more information, please contact: [phone] * Full Code (Latest Code Status on File) Date Activated Date Inactivated Comments 11/23/2024 7:15 AM 11/26/2024 12:00 PM
--- OUTSIDE RECORDS SUMMARY | 2025-03-16 08:16 | XMS_ITS | Clinical Summary ---
Author Organization [facility] Address [address] [place] [address] Care Team Providers Care Freight Engineer Name Role Phone No, Physician Primary Care Provider [phone] Allergies No known active allergies Medications dicyclomine (BENTYL) 20 mg tablet Take 1 tablet (20 mg total) by mouth 2 (two) times a day 20 tablet 06/02/2019 Active Encounters Date Type Department Care Team Description 01/26/2025 Telephone [facility] Medicine Gastroenterology [address] [facility] [address] [place] [address] [place] [phone] Mali Rangel MD PhD from Last 3 Months Social History Tobacco Use Types Packs/Day Years Used Date Smoking Tobacco: Never Alcohol Use Standard Drinks/Week Comments Yes 0 (1 standard drink = 0.6 oz pur e alcohol) 3 handles of vodka in 1 week Personal Safety Answer Date Recorded Have you ever been in or are you currently in a harmful physical or emotional relationship or is someone making you feel afraid or unsafe? 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 Gender Identity Not on file Sexual Orientation Not on file Obstetrics History Last Filed Vital Signs Vital Sign Reading Time Taken Comments Blood Pressure 154/108 03/18/2024 7:37 PM CDT Pulse 116 03/18/2024 7:37 PM CDT Temperature 36.7 C (98 F) 03/18/2024 7:37 PM CDT Respiratory Rate 18 03/18/2024 7:37 PM CDT Oxygen Saturation 99% 03/18/2024 7:37 PM CDT Inhaled Oxygen Concentration - - Weight 95.3 kg (210 lb) 03/18/2024 7:37 PM CDT Height 177.8 cm (5' 10) 03/18/2024 7:37 PM CDT Body Mass Index 30.13 03/18/2024 7:37 PM CDT Plan of Treatment Health Maintenance Due Date Last Done Comments Depression Screening 1990 Hepatitis C Screening 1990 Varicella Vaccines (1 of 2 - 13+ 2-dose series) 2003 Hepatitis B Screening 2008 Regular Well Visit/Exam 18-64 2008 HPV Vaccines (1 - 3-dose SCD M series) 2017 Influenza Vaccine (#1) 2025 DTaP/Tdap/Td Vaccine (2 - Td or Tdap) 06/10/2026 06/10/2016 Pneumococcal vaccine <65 Aged Out No longer eligible based on patient's age to complete this topic Insurance [facility] Care Teams Freight Engineer Relationship Specialty Start Date End Date No, Physician PCP - General 10/26/16
== END 2025-01-28 19:05 | disposition short-term general hospital (02) | DRG 720 ==
LOC: ANHED 01-27 19:19 → ANHCPC 01-28 15:38
PROVIDERS: Emergency Medicine; Student in an Organized Health Care Education/Training Program; Admitting Provider Internal Medicine; Emergency Provider Emergency Medicine; Visit Provider Internal Medicine
DX: A41.9 Sepsis, unspecified organism (principal); N39.0 Urinary tract infection, site not specified; K85.20 Alcohol induced acute pancreatitis without necrosis or infection; K70.11 Alcoholic hepatitis with ascites; F41.1 Generalized anxiety disorder; F32.A Depression, unspecified; E87.1 Hypo-osmolality and hyponatremia; E87.6 Hypokalemia; D68.4 Acquired coagulation factor deficiency; D64.9 Anemia, unspecified
CPT/HCPCS: 36415; 49083; 71045; 74177; 80053; 80074; 81001; 82077; 82140; 82248; 82271; 82570; 82945; 82948; 83605; 83615; 83690; 83735; 83930; 83935; 83986; 84100; 84145; 84156; 84300; 85025; 85610; 85730; 87040; 87086; 87641; 89051; 96361; 96374; 96375; 99285; A9270; C8929; J0132; J0613; J0696; J1171; J1836; J2060; J2270; J2405; J2470; J2560; J2765; J3411; J3430; J3475; J3480; J7030; J7040; J7042; J7050; J7060; J7070; J7120; J7121; J7512; P9047; Q9957; Q9967